=== PATIENT | female | born 1935 | race Caucasian/White ===

== ENCOUNTER 2016-12-27 20:15 | Inpatient (IN) | payer OTHER ==
[~2016-12-27] VITALS: Ht 149.9 cm; Wt 68.6 kg
--- NOTE | 2016-12-27 20:42 | EMERGENCY ROOM VISIT NOTE ---
History Report prepared by Katherine: Rupert Lopez Under the Supervision of: Dr. Zain Archibald M.D. First contact with patient: 20:23 Chief Complaint: CARDIAC ASSESSMENT Stated Complaint: AFIB / [facility] Nursing Triage Summary: pt to the ED via EMS from [facility] after a routine check there by staff when they noticed the pulse ox was 140. pt has a hx of afib and thyroid problems (see orange sheet) EMs arrived and HR was 140's-160's, pt was given 20mg cardizem by EMS and pt HR is in the 90's pt has no complaints of pain or SOB currently, she stated that this morning she "couldn't get her breath real good" History of Present Illness The patient is an 81 year old white female with a past medical history of dementia, hypothyroid, hyperlipidemia, cardiomyopathy, and atrial fibrillation who presents to the ED for a cardiac assessment. This HPI is limited secondary to the patient's dementia. Positive constipation. Negative chest pain, shortness of breath, and cough. The patient was sent here from [facility] after a routine check up by staff. They noticed that her pulse was 140. She was given 20 mg of Cardizem per EMS and her rate decreased to 90s. Source of History: patient, retirement notes, EMS History Limited By: dementia Onset: recently Position: other (heart) Symptom Intensity: Rate 140's Quality: other ([place]) Timing: other (Improving) Associated Symptoms: No cough, No chest pain, No SOB Note: Patient says she is constipated. Review of Systems Limited secondary to the patient's dementia. Past Medical & Surgical Medical Problems: (1) Afib (2) Cardiomyopathy (3) Dementia (4) Hyperlipidemia (5) Hypothyroid Family History Omitted secondary to the patient's age. Social History Smoking Status: Never Smoker Smokeless Tobacco Use: No Alcohol Use: none Drug Use: none Housing Status: retirement Current/Historical Medications Scheduled Aspirin (Aspirin Ec), 81 MG PO QAM Digoxin (Digoxin), 1 TAB PO TW Levothyroxine Sodium (Synthroid), 1.5 TAB PO DAILY Metoprolol Tartrate (Lopressor) (Lopressor), 25 MG PO BID Pantoprazole (Protonix), 40 MG PO DAILY Polyethylene Glycol 3350 (Bulk (Polyethylene Glycol 3350), 17 GM PO DAILY Pravastatin (Pravachol ), 20 MG PO HS Raloxifene Hcl (Evista), 60 MG PO QAM Scheduled PRN Acetaminophen Tab (Tylenol), 650 MG PO Q4 PRN for Pain Docusate Sodium (Docusate Sodium), 1 CAP PO DAILY PRN for Constipation Senna (Senokot), 2 TAB PO DAILY PRN for Constipation Allergies Coded Allergies: No Known Allergies (Unverified , 12/27/16) Physical Exam Vital Signs Date Time Temp Pulse Resp B/P (MAP) Pulse Ox O2 Delivery O2 Flow Rate FiO2 12/27/16 22:39 98 32 126/94 95 Room Air 12/27/16 21:31 90 20 122/89 94 Room Air 12/27/16 21:06 93 22 153/85 96 Nasal Cannula 1.0 12/27/16 20:30 94 12/27/16 20:27 94 Nasal Cannula 2.0 12/27/16 20:21 36.4 90 26 125/68 91 Room Air Physical Exam GENERAL: Awake, alert, well-appearing, NAD, nasal cannula in place. HENT: Normocephalic, atraumatic. EYES: Normal conjunctiva. Sclera non-icteric. NECK: Supple. No nuchal rigidity. FROM. RESPIRATORY: Bibasilar crackles CARDIAC: RRR, no MRG ABDOMEN: Soft, NTND, BS+ MSK: No chest wall TTP, 2+ LE edema NEURO: GCS 15, CN 2-12 intact, moves all 4s on command SKIN: No rash or jaundice noted. Medical Decision & Procedures ER Provider Diagnostic Interpretation: Radiology results as stated below per my review and radiologist interpretation: SINGLE VIEW CHEST CLINICAL HISTORY: Atrial fibrillation. FINDINGS: An AP, portable, upright chest radiograph is obtained. No prior studies are available for comparison at the time of dictation. The examination is degraded by portable technique and patient rotation. The heart is enlarged and there is atherosclerotic calcification of the thoracic aorta. The pulmonary vasculature is noncongested. There are small layering pleural effusions with bibasilar consolidation. No pneumothorax is seen. The skeletal structures are osteopenic. The bony thorax is grossly intact. IMPRESSION: 1. Cardiomegaly without clear radiographic evidence of congestive failure. 2. There are layering pleural effusions with bibasilar consolidation. This likely represents atelectasis. Clinical correlation will be required. Electronically signed by: Shar Eduardo M.D. 12/27/2016 9:20 PM Dictated Date/Time: 12/27/2016 9:18 PM Laboratory Results 12/27/16 20:10 Red Blood Count 4.16, Mean Corpuscular Volume 91.3, Mean Corpuscular Hemoglobin 31.5, Mean Corpuscular Hemoglobin Concent 34.5, Mean Platelet Volume 11.5, Neutrophils (%) (Auto) 69.9, Lymphocytes (%) (Auto) 19.2, Monocytes (%) (Auto) 9.2, Eosinophils (%) (Auto) 1.1, Basophils (%) (Auto) 0.3, Neutrophils # (Auto) 6.62, Lymphocytes # (Auto) 1.82, Monocytes # (Auto) 0.87, Eosinophils # (Auto) 0.10, Basophils # (Auto) 0.03 12/27/16 20:10 Test 12/27/16 20:10 12/27/16 21:16 12/27/16 21:21 White Blood Count 9.47 K/uL (4.8-10.8) Red Blood Count 4.16 M/uL (4.2-5.4) Hemoglobin 13.1 g/dL (12.0-16.0) Hematocrit 38.0 % (37-47) Mean Corpuscular Volume 91.3 fL (80-100) Mean Corpuscular Hemoglobin 31.5 pg (25-34) Mean Corpuscular Hemoglobin Concent 34.5 g/dl (32-36) Platelet Count 262 K/uL (130-400) Mean Platelet Volume 11.5 fL (7.4-10.4) Neutrophils (%) (Auto) 69.9 % Lymphocytes (%) (Auto) 19.2 % Monocytes (%) (Auto) 9.2 % Eosinophils (%) (Auto) 1.1 % Basophils (%) (Auto) 0.3 % Neutrophils # (Auto) 6.62 K/uL (1.4-6.5) Lymphocytes # (Auto) 1.82 K/uL (1.2-3.4) Monocytes # (Auto) 0.87 K/uL (0.11-0.59) Eosinophils # (Auto) 0.10 K/uL (0-0.5) Basophils # (Auto) 0.03 K/uL (0-0.2) RDW Standard Deviation 51.5 fL (36.4-46.3) RDW Coefficient of Variation 15.4 % (11.5-14.5) Immature Granulocyte % (Auto) 0.3 % Immature Granulocyte # (Auto) 0.03 K/uL (0.00-0.02) Prothrombin Time 11.0 SECONDS (9.0-12.0) Prothromb Time International Ratio 1.0 (0.9-1.1) Activated Partial Thromboplast Time 25.7 SECONDS (21.0-31.0) Partial Thromboplastin Ratio 1.0 Anion Gap 9.0 mmol/L (3-11) Est Creatinine Clear Calc Drug Dose 32.6 ml/min Estimated GFR () 61.5 Estimated GFR (Non- 53.1 BUN/Creatinine Ratio 28.1 (10-20) Calcium Level 8.6 mg/dl (8.5-10.1) Phosphorus Level 2.5 mg/dl (2.5-4.9) Magnesium Level 2.0 mg/dl (1.8-2.4) Troponin I 0.044 ng/ml (0-0.045) Pro-B-Type Natriuretic Peptide 5493 pg/ml (0-1800) Chemistry Specimen Hemolysis Venous Blood pH 7.42 (7.36-7.41) Venous Blood Partial Pressure CO2 32 mmHg (38.0-50.0) Venous Blood Partial Pressure O2 43 mmHg Venous Blood HCO3 21 mmol/L Venous Blood Oxygen Saturation 76.4 % Venous Blood Base Excess -2.9 mEq/L Bedside Troponin I 0.030 ng/ml (0-0.045) Laboratory results reviewed by me Medications Administered Medications (Trade) Dose Ordered Sig/Camelia Route Start Time Stop Time Status Last Admin Dose Admin Diltiazem HCl (Cardizem Tab) 30 mg NOW ONCE PO 12/27/16 21:00 12/27/16 21:01 DC 12/27/16 21:16 30 MG Diltiazem HCl (Cardizem Inj) 15 mg NOW STAT IV 12/27/16 22:43 12/27/16 22:45 DC 12/27/16 22:57 15 MG ECG Indication: other (A fib) Rate (beats per minute): 90 Rhythm: atrial fibrillation Findings: Q waves (Anterior), T-wave inversion (V5, V6, 1, aVL), other (Normal QRS, normal QTC) ED Course 2022: The patient was evaluated in room C7. A complete history and physical exam was performed. 2209: I spoke with Dr. Remi [facility], at this time. We discussed the patient's case. He will be evaluating the patient for further management and care. Medical Decision The patient is an 81 year old white female with a past medical history of dementia, hypothyroid, hyperlipidemia, cardiomyopathy, and atrial fibrillation who presents to the ED for a cardiac assessment. This HPI is limited secondary to the patient's dementia. Positive constipation. Negative chest pain, shortness of breath, and cough. Triage Nursing notes reviewed. The patient's presentation and history were concerning for electrolyte abnormality, medical noncompliance, dehydration, and arrhythmia. I spoke with medical command on the phone and given the patient's good blood pressure but tachycardia of 140-160 Cardizem 20 mg was ordered. Patient presented to the ER and rate was well controlled but still in atrial fibrillation. Patient was evaluated with blood work. Patient had a negative troponin. Upon initial eval patient had no medications listed. Patient was given by mouth diltiazem. Patient denied any chest pain or shortness of breath. Patient's chest x-ray did not have severe volume overload. Patient did have some LE swelling. Medication reconciliation and lists medications show that she was on Lopressor in addition to digoxin. Patient was already admitted and given the fact that patient would not respond quickly to a dig loading dose was not given at this time. Hospitalist evaluated the patient at which point the patient was having intermittent bouts of A. fib with RVR. Patient was given a second push dose of diltiazem which resulted in improvement rate control. Patient's EKG did show that she had some lateral and high lateral T-wave inversions and anterior Q waves. No prior EKG to compare. Patient was admitted for rate control and monitoring as well as serial EKGs and troponins. Medication Reconcilliation Current Medication List: was personally reviewed by vt Blood Pressure Screening Patient's blood pressure: Normal blood pressure Blood pressure disposition: Did not require urgent referral Consults Time Called: 2204 Consulting Physician: Dr. Remi Bacon Returned Call: 2209 Discussed the patient's case. The patient will be evaluated for further treatment and disposition. Impression Primary Impression: Atrial fibrillation with RVR Critical Care I have personally spent greater than 47 minutes of critical care time in the direct management of this patient. This includes bedside care, interpretation of diagnostic studies, and testing, discussion with consultants, patient, and family members, and other required patient management activities. This 47 minutes is in excess of all separately billable procedures. Scribe Attestation The scribe's documentation has been prepared under my direction and personally reviewed by me in its entirety. I confirm that the note above accurately reflects all work, treatment, procedures, and medical decision making performed by me. Departure Information Dispostion Being Evaluated By Hospitalist Cat Oleary, C.R.N.P. (PCP) Patient Instructions My [facility]
[2016-12-27] MEDS ORDERED: DILTIAZEM HCL 30 MG TAB PO ONE (21:00)
[2016-12-27 21:09] LABS: BASO % 0.3 %; BASO ABS # 0.03 K/uL (0-0.2); COMPLETE YES; EOS % 1.1 %; IG% 0.3 %; LYMPH % 19.2 %; LYMPH ABS # 1.82 K/uL (1.2-3.4); MEAN CELL VOLUME 91.3 fL (80-100); MEAN CORPUSCULAR HEMOGLOBIN 31.5 pg (25-34); MEAN CORPUSCULAR HGB CONC 34.5 g/dl (32-36); MEAN PLATELET VOLUME 11.5 fL (7.4-10.4); MONO % 9.2 %; NEUT % 69.9 %; PLATELET COUNT 262 K/uL (130-400); RED BLOOD COUNT 4.16 M/uL (4.2-5.4); WHITE BLOOD COUNT 9.47 K/uL (4.8-10.8)
--- NOTE | 2016-12-27 21:21 | DIAGNOSTIC IMAGING REPORT ---
SINGLE VIEW CHEST CLINICAL HISTORY: Atrial fibrillation. FINDINGS: An AP, portable, upright chest radiograph is obtained. No prior studies are available for comparison at the time of dictation. The examination is degraded by portable technique and patient rotation. The heart is enlarged and there is atherosclerotic calcification of the thoracic aorta. The pulmonary vasculature is noncongested. There are small layering pleural effusions with bibasilar consolidation. No pneumothorax is seen. The skeletal structures are osteopenic. The bony thorax is grossly intact. IMPRESSION: 1. Cardiomegaly without clear radiographic evidence of congestive failure. 2. There are layering pleural effusions with bibasilar consolidation. This likely represents atelectasis. Clinical correlation will be required. Electronically signed by: Shar Eduardo M.D. 12/27/2016 9:20 PM Dictated Date/Time: 12/27/2016 9:18 PM
[2016-12-27 21:32] LABS: VEN BLD GAS O2 SATURATION 76.4 %; VEN BLOOD GAS BASE EXCESS -2.9 mEq/L
[2016-12-27 21:33] LABS: BUN/CREATININE RATIO 28.1 (10-20); CALCIUM 8.6 mg/dl (8.5-10.1); CREATININE 0.99 mg/dl (0.60-1.20); PHOSPHORUS 2.5 mg/dl (2.5-4.9); POTASSIUM 4.3 mmol/L (3.5-5.1)
[2016-12-27] MEDS ORDERED: POLY1POW2 PO (21:33)
[2016-12-27] MEDS ORDERED: LEVO50TA PO (21:33)
[2016-12-27] MEDS ORDERED: SENN-61 PO (21:33)
[2016-12-27] MEDS ORDERED: LNX125 PO (21:33)
[2016-12-27] MEDS ORDERED: ACET325T96 PO (21:33)
[2016-12-27] MEDS ORDERED: METO25TA56 PO (21:33)
[2016-12-27] MEDS ORDERED: RALO60TA12 PO (21:33)
[2016-12-27] MEDS ORDERED: PANT40TA PO (21:33)
[2016-12-27] MEDS ORDERED: DOCU100C31 PO (21:33)
[2016-12-27] MEDS ORDERED: ASPI81TA28 PO (21:33)
[2016-12-27] MEDS ORDERED: PRAV20TA PO (21:33)
[2016-12-27] MEDS ORDERED: DILTIAZEM HCL 5 MG/ML 5 ML VIAL IV STA (22:43)
--- NOTE | 2016-12-27 23:02 | History and Physical ---
History & Physical Date & Time of Service: Dec 27, 2016 at 22:58 Chief Complaint: Afib / [facility] Primary Care Physician: Cat Guidry, KarolNJorge APJorge A History of Present Illness Source: patient This is a 81 year Female from [facility] with history of dementia, hypothyroidism, atrial fibrillation (possible new onset), cardiomyopathy, dyslipidemia who was found to have tachycardia of 140 in the [facility] facility. Review of documents submitted to [facility] that patient received 20 mg cardiazem IV before arriving to the hospital. Patient subsequently evaluated in the ED with initial heart rate in the 90s and initial EKG shows atrial fibrillation. When assessed by hospitalist medicine physician, patient's heart rate was between 100s to 120s. ED physician ordered diltiazem 15 mg IV x 1. While patient was evaluated with tachycardia she denied symptoms of chest pain or shortness of breath. She exhibits evidence of memory impairment and not oriented to time or place and is expresses confusion of seeing unfamiliar people in the hospital Review of prior records showed that patient had elevated TSH 22.5 and low free T4 in 0.593 on 11/09/2016. The documents submitted from [facility] shows that levothyroxine was increased from 25 mcg to 75 mcg daily. However outpatient documents show low TSH 0.5 and euthyroid level of T4 1.47 on 12/18/16. Patient also had history of digoxin use with subtherapeutic level less than 0.003 on . [facility] documentation shows that synthroid was held on 12/27/16 on day of hospital presentation. Past Medical/Surgical History Medical Problems: (1) Cardiomyopathy Status: Chronic (2) Dementia Status: Chronic (3) Hyperlipidemia Status: Chronic (4) Hypothyroid Status: Chronic Social History Smoking Status: Unknown if Ever Smoked Smokeless Tobacco Use: Unknown Drug Use: none Allergies Coded Allergies: No Known Allergies (Unverified , 12/27/16) Home Medications Scheduled Aspirin (Aspirin Ec), 81 MG PO QAM Digoxin (Digoxin), 1 TAB PO TW Levothyroxine Sodium (Synthroid), 1.5 TAB PO DAILY Metoprolol Tartrate (Lopressor) (Lopressor), 25 MG PO BID Pantoprazole (Protonix), 40 MG PO DAILY Polyethylene Glycol 3350 (Bulk (Polyethylene Glycol 3350), 17 GM PO DAILY Pravastatin (Pravachol ), 20 MG PO HS Raloxifene Hcl (Evista), 60 MG PO QAM Scheduled PRN Acetaminophen Tab (Tylenol), 650 MG PO Q4 PRN for Pain Docusate Sodium (Docusate Sodium), 1 CAP PO DAILY PRN for Constipation Senna (Senokot), 2 TAB PO DAILY PRN for Constipation Review of Systems Constitutional: No fever Respiratory: No shortness of breath Cardiovascular: No chest pain Abdomen: No pain Musculoskeletal: + swelling (bilateral lower extremities) Physical Exam Vital Signs Date Time Temp Pulse Resp B/P (MAP) Pulse Ox O2 Delivery O2 Flow Rate FiO2 12/27/16 21:31 90 20 122/89 94 Room Air 12/27/16 21:06 93 22 153/85 96 Nasal Cannula 1.0 12/27/16 20:30 94 12/27/16 20:27 94 Nasal Cannula 2.0 12/27/16 20:21 36.4 90 26 125/68 91 Room Air General Appearance: no apparent distress Head: normocephalic, atraumatic Eyes: normal inspection, EOMI ENT: TMs normal Neck: no adenopathy, trachea midline Respiratory/Chest: chest non-tender, lungs clear, normal breath sounds, no respiratory distress, no accessory muscle use Cardiovascular: + tachycardia, + irregularly irregular Abdomen/GI: normal bowel sounds, non tender, soft Back: no muscle spasm Extremities/Musculoskelatal: normal inspection, normal range of motion Neurologic/Psych: + pertinent finding (alert to self) Skin: warm/dry Diagnostics Laboratory Results Results Past 24 Hours Test 12/27/16 20:10 12/27/16 21:16 12/27/16 21:21 Range/Units White Blood Count 9.47 4.8-10.8 K/uL Red Blood Count 4.16 4.2-5.4 M/uL Hemoglobin 13.1 12.0-16.0 g/dL Hematocrit 38.0 37-47 % Mean Corpuscular Volume 91.3 80-100 fL Mean Corpuscular Hemoglobin 31.5 25-34 pg Mean Corpuscular Hemoglobin Concent 34.5 32-36 g/dl Platelet Count 262 130-400 K/uL Mean Platelet Volume 11.5 7.4-10.4 fL Neutrophils (%) (Auto) 69.9 % Lymphocytes (%) (Auto) 19.2 % Monocytes (%) (Auto) 9.2 % Eosinophils (%) (Auto) 1.1 % Basophils (%) (Auto) 0.3 % Neutrophils # (Auto) 6.62 1.4-6.5 K/uL Lymphocytes # (Auto) 1.82 1.2-3.4 K/uL Monocytes # (Auto) 0.87 0.11-0.59 K/uL Eosinophils # (Auto) 0.10 0-0.5 K/uL Basophils # (Auto) 0.03 0-0.2 K/uL RDW Standard Deviation 51.5 36.4-46.3 fL RDW Coefficient of Variation 15.4 11.5-14.5 % Immature Granulocyte % (Auto) 0.3 % Immature Granulocyte # (Auto) 0.03 0.00-0.02 K/uL Prothrombin Time 11.0 9.0-12.0 SECONDS Prothromb Time International Ratio 1.0 0.9-1.1 Activated Partial Thromboplast Time 25.7 21.0-31.0 SECONDS Partial Thromboplastin Ratio 1.0 Sodium Level 138 136-145 mmol/L Potassium Level 4.3 3.5-5.1 mmol/L Chloride Level 108 98-107 mmol/L Carbon Dioxide Level 21 21-32 mmol/L Anion Gap 9.0 3-11 mmol/L Blood Urea Nitrogen 28 7-18 mg/dl Creatinine 0.99 0.60-1.20 mg/dl Est Creatinine Clear Calc Drug Dose 32.6 ml/min Estimated GFR () 61.5 Estimated GFR (Non- 53.1 BUN/Creatinine Ratio 28.1 10-20 Random Glucose 129 70-99 mg/dl Calcium Level 8.6 8.5-10.1 mg/dl Phosphorus Level 2.5 2.5-4.9 mg/dl Magnesium Level 2.0 1.8-2.4 mg/dl Troponin I 0.044 0-0.045 ng/ml Pro-B-Type Natriuretic Peptide 5493 0-1800 pg/ml Chemistry Specimen Hemolysis Venous Blood pH 7.42 7.36-7.41 Venous Blood Partial Pressure CO2 32 38.0-50.0 mmHg Venous Blood Partial Pressure O2 43 mmHg Venous Blood HCO3 21 mmol/L Venous Blood Oxygen Saturation 76.4 % Venous Blood Base Excess -2.9 mEq/L Bedside Troponin I 0.030 0-0.045 ng/ml Diagnostic Radiology 1. Cardiomegaly without clear radiographic evidence of congestive failure. 2. There are layering pleural effusions with bibasilar consolidation. This likely represents atelectasis. EKG initial EKG reviewed to be atrial fibrillation with heart rate in the 90s Impression Assessment and Plan This is a 81 year Female from [facility] with history of dementia, hypothyroidism, atrial fibrillation (possible new onset), cardiomyopathy, dyslipidemia who was found to have tachycardia of 140 in the [facility] facility. At this time it is unclear whether the atrial fibrillation with RVR is new onset as medical records incomplete and no documentation found on anticoagulation. Atrial fibrillation with RVR, cardiomyopathy history -s/p 20 mg cardiazem IV before arriving to the hospital. Patient subsequently evaluated in the ED with initial heart rate in the 90s and initial EKG shows atrial fibrillation. When assessed by hospitalist medicine physician, patient's heart rate was between 100s to 120s. ED physician ordered diltiazem 15 mg IV x 1. -cardiac telemetry, monitor blood pressure for hypotension while receiving rate control medications -additional IV pushes of rate control medications as needed -ordered 50 mg of metoprolol BID for long acting rate control -heparin drip for anticoagulation, trend coags -trend troponins -TTE for structural heart disease -digoxin -cardiology consult Thyroid disorder -has had significant changes of TSH and T4 levels over recent 1 months duration -because of afib RVR, hold levothyroxine for now, trend TFTs Dementia -redirect patient to bed, reorient patient to surroundings as needed -hold memantine or donepezil for now -PT/OT Contact information listed PA from [facility] contact information [phone] Daughter and power of assistant city attorney Margie Manzo [phone] Daughter and power of assistant city attorney Christine Bernabe [phone] Level of Care Telemetry VTE Prophylaxis VTE Risk Assessment Done? Y/N: Yes Risk Level: High
[2016-12-27] MEDS ORDERED: POLYETHYLENE (MIRALAX) 17 GM PACK PO PRN (23:15)
[2016-12-27] MEDS ORDERED: NITROGLYCERIN 0.4 MG SL PER TAB CHARGE SL PRN (23:15)
[2016-12-27] MEDS ORDERED: ACETAMINOPHEN 325 MG TAB PO PRN (23:15)
[2016-12-27] MEDS ORDERED: SENNA 8.6 MG TAB PO PRN (23:15)
[2016-12-27] MEDS ORDERED: ONDANSETRON INJ 2 MG/ML 2 ML VIAL IV PRN (23:15)
[2016-12-27] MEDS ORDERED: DOCUSATE SODIUM 100 MG CAP PO PRN (23:15)
[2016-12-27] MEDS ORDERED: ALUMINUM/MAGNESIUM/SIMETH (MAALOX MAX) 30 ML UDC PO PRN (23:15)
[2016-12-27] MEDS ORDERED: MAGNESIUM HYDROXIDE SUSP 30 ML UDC PO PRN (23:15)
[2016-12-27] MEDS ORDERED: HEPARIN IV LOW DOSE NO BOLUS SCH (23:36)
[2016-12-27 23:53] VITALS: BP 127/87; PULSE 77; TEMP 36.3; O2SAT 93
[2016-12-28] VITALS (9 sets, daily range): BP systolic 111–128; BP diastolic 70–92; PULSE 77–139; TEMP 36.1–37; O2SAT 92–97; Ht 149.9 cm; Wt 68.6 kg
[2016-12-28] MEDS ORDERED: HEPARIN 25,000 UNIT/500ML D5W 500 ML IV PRN (00:15)
[2016-12-28] MEDS ORDERED: NURSING VERBAL MED ORDER ONE ×2 (02:00→08:45)
[2016-12-28] MEDS: METOPROLOL TARTRATE 1 MG/ML VIAL IV PRN ×2 (03:48→17:10)
--- NOTE | 2016-12-28 05:20 | Progress Note ---
Progress Note Date of Service Dec 28, 2016. Progress Note [employer]ST[employer] HELPER ATTENDING NOTE : pt admitted to floor with Afib rvr became very combative /confused , hitting , punching nursing , trying to climb out of bed ripped off her IV site pt evaluated at bedside was more pleasant and co operative , does not recall of her behavior earlier ordered to D/c IV heparin -very poor candidate for anticoagulation ordered for low bed /fall precaution 1: 1 observation for patient safety
[2016-12-28 05:45] LABS: HEMATOCRIT 37.2 % (37-47); MEAN CELL VOLUME 91.6 fL (80-100); MEAN CORPUSCULAR HEMOGLOBIN 30.3 pg (25-34); MEAN CORPUSCULAR HGB CONC 33.1 g/dl (32-36); MEAN PLATELET VOLUME 11.3 fL (7.4-10.4); PLATELET COUNT 214 K/uL (130-400); RED BLOOD COUNT 4.06 M/uL (4.2-5.4); WHITE BLOOD COUNT 8.84 K/uL (4.8-10.8)
[2016-12-28 06:22] LABS: CKMB/CK RATIO 5.5 (0-3.0)
[2016-12-28] MEDS: PANTOprazole SOD 40 MG TAB PO SCH (08:03)
[2016-12-28] MEDS: RALOXIFENE 60 MG TAB PO SCH (08:03)
[2016-12-28] MEDS: ASPIRIN 81 MG ECTAB PO SCH (08:03)
[2016-12-28] MEDS ORDERED: METOPROLOL TARTRATE 25 MG TAB PO SCH (09:00)
[2016-12-28] MEDS ORDERED: LEVOTHYROXINE 50 MCG TAB PO SCH (09:00)
--- NOTE | 2016-12-28 09:06 | ECHOCARDIOGRAM REPORT ---
*NOTICE TO RECEIVING REPUBLICAN AGENCY This information is strictly Confidential and protected under [place] law. [place] law prohibits you from making any further disclosure of this information unless further disclosure is expressly permitted by the written consent of the person to whom it pertains or is authorized by law. A general authorization for the release of medical or other information is not sufficient for this purpose. Hospital accepts no responsibility if the information is made available to any other person, INCLUDING THE PATIENT. Interpretation Summary * Name: KEYLA BANGURA Study Date: 12/28/2016 07:24 AM BP: 111/72 mmHg * Patient Location: C.2T\S\E220\S\1 HR: 113 * : 1935 (M/d/yyyy) Gender: Female Height: 59 in * Age: 81 yrs Ethnicity: CA Weight: 116 lb * Ordering Physician: Becca Chvaez * Referring Physician: Self, Referred * Performed By: Angel Valentin RCS * * Reason For Study: A-FIB * BSA: 1.5 m2 * The study was technically adequate. * There is no comparison study available. * -- Conclusions -- * The rhythm is atrial fibrillation with rapid ventricular response. * Left ventricular systolic function is severely reduced. * Ejection Fraction = 20-25%. * The septum is akinetic. * The apical segements are akinetic. * The mid anterior, lateral, posterior, and inferior segements are hypokinetic. * The left atrium is moderately dilated. * There is moderate mitral regurgitation. * Small loculated posterior pericardial effusion. Procedure Details * A complete two-dimensional transthoracic echocardiogram was performed (2D, M-mode, Doppler and color flow Doppler). Left Ventricle * The left ventricle is normal in size. * The rhythm is atrial fibrillation with rapid ventricular response. * There is normal left ventricular wall thickness. * Ejection Fraction = 20-25%. * Left ventricular systolic function is severely reduced. * The septum is akinetic. The apical segements are akinetic. The mid anterior, lateral, posterior, and inferior segements are hypokinetic. Right Ventricle * The right ventricle is normal size. * The right ventricular systolic function is normal as assessed by tricuspid annular plane systolic excursion (TAPSE) (normal >1.5 cm). Atria * The left atrium is moderately dilated. * The right atrium is mildly dilated. * There is no evidence of atrial septal defect, but resolution does not allow assessment for a patent foramen ovale. Mitral Valve * The mitral valve is normal. * There is no mitral valve stenosis. * There is moderate mitral regurgitation. Tricuspid Valve * The tricuspid valve is normal. * There is no tricuspid stenosis. * There is trace tricuspid regurgitation. * Doppler findings do not suggest pulmonary hypertension. Aortic Valve * The aortic valve is trileaflet. * Aortic stenosis is absent. * Mild aortic regurgitation. Pulmonic Valve * The pulmonary valve is not well seen, but the Doppler examination is normal without significant regurgitation or stenosis. Great Vessels * The aortic root is normal size. Pericardium/Pleural * Small loculated posterior pericardial effusion. Great Vessels * IVC not well visualized. Left Ventricular Diastolic Function * Pulse wave TDI of the anterior and posterior mitral annulas demonstrates abnormal LV relaxation MMode 2D Measurements and Calculations IVSd 0.63 cm LVIDd 5.4 cm LVIDs 4.3 cm LVPWd 0.75 cm IVS/LVPW 0.84 FS 20.1 % EDV(Teich) 140.5 ml ESV(Teich) 83.3 ml EF(Teich) 40.7 % EDV(cubed) 156.3 ml ESV(cubed) 79.8 ml EF(cubed) 48.9 % LV mass(C)d 128.6 grams LV mass(C)dI 87.9 grams/m\S\2 SV(Teich) 57.2 ml SI(Teich) 39.1 ml/m\S\2 SV(cubed) 76.5 ml SI(cubed) 52.3 ml/m\S\2 Ao root diam 2.8 cm Ao root area 5.9 cm\S\2 LVOT diam 2.0 cm LVOT area 3.0 cm\S\2 EDV(MOD-sp4) 54.5 ml ESV(MOD-sp4) 35.6 ml EF(MOD-sp4) 34.7 % EDV(MOD-sp2) 29.8 ml ESV(MOD-sp2) 15.0 ml EF(MOD-sp2) 49.8 % SV(MOD-sp4) 18.9 ml SI(MOD-sp4) 12.9 ml/m\S\2 SV(MOD-sp2) 14.8 ml SI(MOD-sp2) 10.1 ml/m\S\2 Doppler Measurements and Calculations Ao V2 max 100.9 cm/sec Ao max PG 4.1 mmHg Ao max PG (full) 2.0 mmHg GUIDO(V,A) 2.1 cm\S\2 GUIDO(V,D) 2.1 cm\S\2 LV V1 max PG 2.1 mmHg LV V1 max 71.4 cm/sec TR max margaret 247.0 cm/sec
[2016-12-28] MEDS ORDERED: METOPROLOL TARTRATE 25 MG TAB PO ONE (09:30)
--- NOTE | 2016-12-28 09:49 | Progress Note ---
Subjective Date of Service: Dec 28, 2016. Subjective Pt evaluation today including: conversation w/ patient, conversation w/ family (daughter, Margie), physical exam, lab review, review of studies, review of inpatient medication list Saw/examined the patient in room 220 she is pleasantly demented Denies any symptoms Ate most of her breakfast Problem List Medical Problems: (1) Atrial fibrillation with RVR Status: Acute Medications Current Inpatient Medications Medications (Trade) Dose Ordered Sig/Camelia Route Start Time Stop Time Status Last Admin Dose Admin Metoprolol Tartrate (Lopressor Iv) 5 mg Q6 PRN IV 12/27/16 23:00 01/26/17 22:59 12/28/16 03:48 5 MG Acetaminophen (Tylenol Tab) 650 mg Q4 PRN PO 12/27/16 23:15 01/26/17 23:14 Aspirin (Ecotrin Tab) 81 mg QAM PO 12/28/16 09:00 01/27/17 08:59 12/28/16 08:03 81 MG Digoxin (Lanoxin Tab) 0.125 mg DAILY@1600 PO 12/28/16 16:00 01/27/17 15:59 Docusate Sodium (coLACE CAP) 100 mg DAILY PRN PO 12/27/16 23:15 01/26/17 23:14 Metoprolol Tartrate (Lopressor Tab) 25 mg BID PO 12/28/16 09:00 01/27/17 08:59 12/28/16 08:03 25 MG Pantoprazole Sodium (Protonix Tab) 40 mg DAILY PO 12/28/16 09:00 01/27/17 08:59 12/28/16 08:03 40 MG Pravastatin Sodium (Pravachol Tab) 20 mg HS PO 12/28/16 21:00 01/27/17 20:59 Raloxifene HCl (Evista Tab) 60 mg QAM PO 12/28/16 09:00 01/27/17 08:59 12/28/16 08:03 60 MG Senna (Senokot Tab) 17.2 mg DAILY PRN PO 12/27/16 23:15 01/26/17 23:14 Al Hydrox/Mg Hydrox/Simethicone (Maalox Max Susp) 15 ml Q4H PRN PO 12/27/16 23:15 01/26/17 23:14 Magnesium Hydroxide (Milk Of Magnesia Susp) 30 ml Q12H PRN PO 12/27/16 23:15 01/26/17 23:14 Ondansetron HCl (Zofran Inj) 4 mg Q6H PRN IV 12/27/16 23:15 01/26/17 23:14 Nitroglycerin (Nitrostat Tab) 0.4 mg UD PRN SL 12/27/16 23:15 01/26/17 23:14 Polyethylene (Miralax Powder Packet) 17 gm DAILY PRN PO 12/27/16 23:15 01/26/17 23:14 Objective Vital Signs Date Time Temp Pulse Resp B/P (MAP) Pulse Ox O2 Delivery O2 Flow Rate FiO2 12/28/16 07:15 36.6 128 18 128/92 (104) 94 Room Air 12/28/16 04:06 93 Room Air 12/28/16 03:48 123 18 111/72 (85) 92 Room Air 12/28/16 03:48 128 111/74 12/28/16 01:00 36.3 77 18 127/87 96 Room Air 12/27/16 23:53 36.3 77 18 127/87 (100) 93 Room Air 12/27/16 23:26 101 104/88 12/27/16 23:25 141 34 96 12/27/16 23:21 120/70 12/27/16 23:20 91 23 96 12/27/16 23:16 117/73 12/27/16 23:15 71 27 93 12/27/16 23:10 111 22 90 12/27/16 23:07 101/82 12/27/16 23:05 98 28 92 12/27/16 23:03 99 26 114/76 93 Room Air 12/27/16 23:00 117 28 104/71 95 Room Air 12/27/16 22:39 98 32 126/94 95 Room Air 12/27/16 21:31 90 20 122/89 94 Room Air 12/27/16 21:06 93 22 153/85 96 Nasal Cannula 1.0 12/27/16 20:30 94 12/27/16 20:27 94 Nasal Cannula 2.0 12/27/16 20:21 36.4 90 26 125/68 91 Room Air Physical Exam General Appearance: no apparent distress Respiratory/Chest: lungs clear, normal breath sounds, no respiratory distress, no accessory muscle use Cardiovascular: + tachycardia, + irregularly irregular Extremities: + pertinent finding (+1 pitting edema b/l LE) Laboratory Results Last 24 Hours Test 12/27/16 20:10 12/27/16 21:16 12/27/16 21:21 12/27/16 23:09 White Blood Count 9.47 K/uL Red Blood Count 4.16 M/uL Hemoglobin 13.1 g/dL Hematocrit 38.0 % Mean Corpuscular Volume 91.3 fL Mean Corpuscular Hemoglobin 31.5 pg Mean Corpuscular Hemoglobin Concent 34.5 g/dl Platelet Count 262 K/uL Mean Platelet Volume 11.5 fL Neutrophils (%) (Auto) 69.9 % Lymphocytes (%) (Auto) 19.2 % Monocytes (%) (Auto) 9.2 % Eosinophils (%) (Auto) 1.1 % Basophils (%) (Auto) 0.3 % Neutrophils # (Auto) 6.62 K/uL Lymphocytes # (Auto) 1.82 K/uL Monocytes # (Auto) 0.87 K/uL Eosinophils # (Auto) 0.10 K/uL Basophils # (Auto) 0.03 K/uL RDW Standard Deviation 51.5 fL RDW Coefficient of Variation 15.4 % Immature Granulocyte % (Auto) 0.3 % Immature Granulocyte # (Auto) 0.03 K/uL Prothrombin Time 11.0 SECONDS Prothromb Time International Ratio 1.0 Activated Partial Thromboplast Time 25.7 SECONDS Partial Thromboplastin Ratio 1.0 Sodium Level 138 mmol/L Potassium Level 4.3 mmol/L Chloride Level 108 mmol/L Carbon Dioxide Level 21 mmol/L Anion Gap 9.0 mmol/L Blood Urea Nitrogen 28 mg/dl Creatinine 0.99 mg/dl Est Creatinine Clear Calc Drug Dose 32.6 ml/min Estimated GFR () 61.5 Estimated GFR (Non- 53.1 BUN/Creatinine Ratio 28.1 Random Glucose 129 mg/dl Calcium Level 8.6 mg/dl Phosphorus Level 2.5 mg/dl Magnesium Level 2.0 mg/dl Troponin I 0.044 ng/ml Pro-B-Type Natriuretic Peptide 5493 pg/ml Chemistry Specimen Hemolysis Venous Blood pH 7.42 Venous Blood Partial Pressure CO2 32 mmHg Venous Blood Partial Pressure O2 43 mmHg Venous Blood HCO3 21 mmol/L Venous Blood Oxygen Saturation 76.4 % Venous Blood Base Excess -2.9 mEq/L Bedside Troponin I 0.030 ng/ml Digoxin Level 0.2 ng/ml Test 12/28/16 05:24 White Blood Count 8.84 K/uL Red Blood Count 4.06 M/uL Hemoglobin 12.3 g/dL Hematocrit 37.2 % Mean Corpuscular Volume 91.6 fL Mean Corpuscular Hemoglobin 30.3 pg Mean Corpuscular Hemoglobin Concent 33.1 g/dl RDW Standard Deviation 50.9 fL RDW Coefficient of Variation 15.3 % Platelet Count 214 K/uL Mean Platelet Volume 11.3 fL Total Creatine Kinase 40 U/L Creatine Kinase MB 2.2 ng/ml Creatine Kinase MB Ratio 5.5 Troponin I 0.053 ng/ml Free Thyroxine 1.26 ng/dl Assessment and Plan This is an 81 year old female from [facility] with PMH of dementia, urinary incontinence, HTN, HLD, hypothyroidism presents with A. fib with RVR I called and spoke with Margie, patient's daughter, who tells me that the patient had A. Fib in early October and was admitted at [facility] - at that time, they changed her Coreg to Lopressor and stopped her Lisinopril. She was also sent home on a low dose digoxin. They briefly discussed cardioversion, but family did not want this to be done and do not want heroic measures. Patient does have a living will and she is currently a DNR status. As per daughter, they were aware of her heart being in bad condition; including mitral regurgitation and significantly reduced LVEF. They would like only medical therapies that will bring down the heart. Margie also mentions that patient has had Haldol before and did not do well with it in the past. She also does not do well with Ativan or other anti-anxiety/agitation medications and requests that we avoid if it is possible. Margie will not be available to speak for the next few days; requested we contact patient's other daughter if we need to Contact Information: Bernabe Cerda - A. Fib with RVR increased metoprolol AM dose to 50mg on monitor, patient is still in the 120s-130s digoxin changed from only M and Th dosing to daily dosing PRN IV Lopressor is ordered echo noted: severely reduced LVEF to 20-25%; moderate mitral regurgitation attempted IV heparin, though patient became agitated; no anticoagulation due to patient's mental status/dementia cardiology consultation for further input Thyroid Disorder her TSH has been labile; last one was low, suggesting hyperthyroidism; Free T4 is normal hold Synthroid due to A. Fib with RVR; may be beneficial to stop this completely , recheck TSH in ~ 4-6 weeks Dementia patient is prone to sundowning as per daughter, Haldol had an opposite effect on her, making her more agitated will try to avoid Haldol or Benzos if possible 1 to 1 observation for now Urinary Incontinence continue current medications HTN blood pressure is stable, tolerating increased doses of b-jayda DVT ppx patient is not tolerating heparin/Lovenox injections do not want to place SCDs due to dementia contraindicated DNR - as per discussion with Margie, patient's daughter -
--- NOTE | 2016-12-28 10:24 | CARDIOLOGY CONSULTATION ---
DATE OF CONSULTATION: 12/28/2016 DATE OF CONSULTATION: 12/28/2016 REFERRING PHYSICIAN: Dr. Elgin Khalil. REASON FOR CONSULTATION: Atrial fibrillation. CHIEF COMPLAINT ON ADMISSION: Agitation. HISTORY OF PRESENT ILLNESS: Ms. Gr is an 81-year-old female who resides at [facility] with a history of dementia, cardiomyopathy, hypothyroidism, coronary disease and dyslipidemia. The patient was noted to be agitated. Her vital signs at [facility] demonstrated tachycardia. She was brought to the Emergency Department and noted to be in atrial fibrillation with rapid ventricular response. She was treated with 20 mg of intravenous Cardizem prior to arriving in the hospital. She received an additional 15 mg IV by the ER physician. No additional medications have been given. She was admitted to the progressive care unit. Currently, atrial fibrillation with rapid ventricular response. Average ventricular rate of approximately 120 beats per minute. Nursing reports confusion and combativeness overnight. Her intravenous heparin was discontinued. She received 25 mg of metoprolol this morning. She is scheduled to receive 125 mcg of digoxin this afternoon. Her digoxin level 0.2 on admission. The patient complaining of need to urinate. Bladder scan was performed at the bedside demonstrating 340 mL of urinary retention. The patient currently resting comfortably. She is no longer combative. She did not receive any sedation. She is an extremely poor historian due to underlying dementia. She is oriented to person only. Per review of records from [facility], it appears she was followed by a glazier helper in [place], however, I do not have further details or records to review at this time. REVIEW OF SYSTEMS: Unable to be obtained from the patient due to her significant dementia. Ten system was reviewed via chart, otherwise unremarkable at this time. The pertinent positives are noted above. PAST MEDICAL HISTORY: 1. Cardiomyopathy, unknown severity. 2. Coronary disease with history of coronary stenting x4. 3. Mesenteric stenting. 4. Dementia. 5. Dyslipidemia. 6. Hypothyroidism - Synthroid recently reduced. PAST SURGICAL HISTORY: Not documented. SOCIAL HISTORY: Unknown if patient was ever a smoker. She currently resides at [facility]. ALLERGIES: No known drug allergies. OUTPATIENT MEDICATIONS: 1. Aspirin 81 mg daily. 2. Digoxin Mondays and . 3. Synthroid, unknown dose. 4. Metoprolol tartrate 25 mg twice daily. 5. Protonix 40 mg daily. 6. Pravastatin 20 mg daily. 7. Evista 60 mg daily. 8. Tylenol as needed. 9. Colace as needed. 10. Senna as needed. ECG on admission demonstrates atrial fibrillation with ventricular rate of [address]-T wave change in V5 and V6, consider ischemia, poor R-wave progression, could not exclude age indeterminate anterior septal infarct. LABORATORY DATA: Initial troponin 0.044, repeat troponin at 0524 a.m. is 0.053. Her CK-MB is 2.2. Sodium 138, potassium 4.3, chloride 108, CO2 21, BUN is 28, creatinine is 0.99. INR is 1.0. White blood cell count 8.84, hemoglobin is 12.3, platelet count is 214. Chest x-ray on admission demonstrates cardiomegaly without clear congestive heart failure, layering effusions with bibasilar consolidation. Findings represent atelectasis versus infiltrate. PHYSICAL EXAMINATION: VITAL SIGNS: Temperature is 36.6 degrees Celsius, pulse is 120 beats per minute and irregular, respiratory rate is 18 breaths per minute. SAO2 is 94% on room air. GENERAL: NAD, patient is awake, alert, however oriented to person only. She is no longer agitated. HEAD, EYES, EARS, NOSE, AND THROAT: Her mucous membranes are moist. No scleral icterus. Conjunctivae pink. NECK: Supple. No JVD. No HJR. No carotid bruit. HEART: Irregular and tachycardic with a normal S1 and S2. No murmur, rub or gallop appreciated. LUNGS: Demonstrate diminished breath sounds at the bases bilaterally. No rhonchi or wheeze. No crackles appreciated. ABDOMEN: Soft. There is mild distention in her suprapubic region and tenderness as well. Normal bowel sounds. No rebound or guarding. EXTREMITIES: Warm and dry without clubbing, cyanosis, or edema. NEUROLOGIC EXAMINATION: The patient moves all extremities. She does not follow commands appropriately. Cranial nerves are grossly intact. FINAL IMPRESSION: 1. Atrial fibrillation of unknown duration with rapid ventricular response. The patient's heart rate remains elevated. She has received 2 doses of intravenous diltiazem overnight. Appears be asymptomatic and unaware of her heart rate at this time without chest discomfort. 2. Severe ischemic cardiomyopathy with history of coronary stenting x4. The patient appears compensated. 3. Pleural effusions on chest x-ray without evidence of pulmonary edema. 4. Hypothyroidism -- patient Synthroid recently reduced, possible precipitating her atrial fibrillation, however duration of arrhythmias is unknown. 5. Significant underlying dementia. The patient is oriented to person only. PLAN AND RECOMMENDATIONS: Increase metoprolol to 50 mg twice daily. She will receive an additional 25 mg x1 now. Continue to monitor telemetry closely. Titrate digoxin to 125 mcg daily. Also, consider adding an additional 250 mg dose of digoxin today pending heart rate response to titration of metoprolol. Would recommend gentle titration as the patient appears to be asymptomatic at her current heart rate. Her echocardiogram demonstrates significant ischemic cardiomyopathy, however, she appears compensated without dyspnea, orthopnea, edema, or pulmonary edema on x-ray. We will attempt to obtain records from her glazier helper in [place] regarding further details of her cardiovascular conditions and history. Will continue to follow closely during hospitalization. Thank you for allowing me to take part in the care of your patient. QAMAR
[2016-12-28 13:41] LABS: CKMB/CK RATIO 4.5 (0-3.0)
[2016-12-28] MEDS ORDERED: DIGOXIN 0.25 MG TAB PO ONE (14:30)
[2016-12-28] MEDS ORDERED: DIGOXIN 0.125 MG TAB PO SCH (16:00)
[2016-12-28] MEDS: PRAVASTATIN SOD 20 MG TAB PO SCH (19:40)
[2016-12-28] MEDS ORDERED: DOXAZosin TAB 1 MG TAB PO SCH (21:00)
[2016-12-28] MEDS ORDERED: METOPROLOL TARTRATE 50 MG TAB PO SCH (21:00)
[2016-12-29] VITALS (15 sets, daily range): BP systolic 108–135; BP diastolic 64–83; PULSE 42–150; TEMP 36.4–37.1; O2SAT 89–97
[2016-12-29] MEDS: METOPROLOL TARTRATE 1 MG/ML VIAL IV PRN ×2 (01:24→10:23)
[2016-12-29 05:50] LABS: CALCIUM 8.4 mg/dl (8.5-10.1); CREATININE 0.89 mg/dl (0.60-1.20); MAGNESIUM 2.1 mg/dl (1.8-2.4); POTASSIUM 4.9 mmol/L (3.5-5.1)
--- NOTE | 2016-12-29 06:55 | DIAGNOSTIC IMAGING REPORT ---
CHEST ONE VIEW PORTABLE CLINICAL HISTORY: Shortness of breath. Evaluate for aspiration. COMPARISON STUDY: Chest radiograph December 27, 2016. FINDINGS: There is no pneumothorax. Small bilateral pleural effusions, left larger than right, are unchanged. Mild pulmonary edema has developed. Bibasilar opacities are present. Moderate cardiomegaly is noted. IMPRESSION: 1. Interval development of mild pulmonary edema. 2. Small bilateral pleural effusions with associated bibasilar opacities. These opacities statistically reflect atelectasis although consolidation could appear similar. Electronically signed by: Jhoan Nesbitt M.D. 12/29/2016 6:54 AM Dictated Date/Time: 12/29/2016 6:53 AM
[2016-12-29] MEDS: ASPIRIN 81 MG ECTAB PO SCH ×2 (09:00→10:13)
[2016-12-29] MEDS: METOPROLOL TARTRATE 50 MG TAB PO SCH ×4 (09:00→20:32)
[2016-12-29] MEDS: PANTOprazole SOD 40 MG TAB PO SCH ×2 (09:00→10:13)
[2016-12-29] MEDS: RALOXIFENE 60 MG TAB PO SCH ×2 (09:00→10:13)
--- NOTE | 2016-12-29 10:38 | Cardiology Follow-Up ---
Subjective General Date of Service: Dec 29, 2016. Pt evaluation today including: conversation w/ patient, physical exam, chart review, lab review, review of studies, conversation w/ budget consultant, review of inpatient medication list History of Present Illness The patient is a 81 year old female seen in follow-up. Patient is resting comfortably. Heart rates remain elevated averaging 130 bpm. Patient experience a choking episode overnight with associated bradycardia and 4 second pause. She is unable to offer meaningful history due to underlying dementia. Allergies Coded Allergies: No Known Allergies (Unverified , 12/27/16) Social History Smoking Status: Unknown if Ever Smoked Hx Tobacco Use In Past Year?: No Hx Alcohol Use - Type And Amou: No Problem List Medical Problems: (1) Atrial fibrillation with RVR Status: Acute Review of Systems Respiratory: No sputum, No dyspnea at rest Cardiac: No chest pain, No orthopnea, No edema Physical Exam Vital Signs Last Vital Signs Documentation Date Time Temp Pulse Resp B/P (MAP) Pulse Ox O2 Delivery O2 Flow Rate FiO2 12/29/16 10:23 140 113/81 12/29/16 08:00 Room Air 12/29/16 04:56 92 12/29/16 04:06 36.5 16 12/27/16 21:06 1.0 Physical Exam Constitutional: Level of Distress: NAD Head: atraumatic Lungs: Auscultation: no wheezing, no rales/crackles, no rhonchi Cardiovascular: Heart Auscultation: no murmurs, tachycardia, irregular rate rhythm Peripheral Pulses: Bruits: none appreciated Abdomen: Inspection & Palpation: soft, non-distended, no tenderness, guarding & rebound Extremities: no cyanosis, no edema, no clubbing, no ulcers Neurologic: Cranial Nerves: grossly intact Assessment and Plan Assessment and Plan FINAL IMPRESSION: 1. Atrial fibrillation with rapid ventricular response and transient bradycardia with 4 second pause recorded overnight in the setting of choking. 2. Severe ischemic cardiomyopathy with history of coronary stenting x4.\ - compensated. 3. Pleural effusions on chest x-ray without evidence of pulmonary edema. 4. Hypothyroidism -- patient Synthroid recently reduced, possible precipitating her atrial fibrillation, however duration of arrhythmias is unknown. 5. Significant underlying dementia - oriented to person only. PLAN AND RECOMMENDATIONS: Patient heart rate remains elevated this morning. Her transient bradycardia last night was associated with a choking episode as per discussion with nursing. I suspect vagally mediated. We will give an additional 250 g of digoxin this morning. She will have metoprolol titrated to 50 mg 3 times daily as well. Would like to avoid intravenous AV criselda blocking agents given episode of transient bradycardia. Plan of care discussed with hospitalist. Will continue to follow during hospitalization. Laboratory Results Last 24 Hours Test 12/28/16 12:57 12/29/16 05:05 Total Creatine Kinase 44 U/L Creatine Kinase MB 2.0 ng/ml Creatine Kinase MB Ratio 4.5 Troponin I 0.043 ng/ml Sodium Level 140 mmol/L Potassium Level 4.9 mmol/L Chloride Level 110 mmol/L Carbon Dioxide Level 26 mmol/L Anion Gap 4.0 mmol/L Blood Urea Nitrogen 31 mg/dl Creatinine 0.89 mg/dl Est Creatinine Clear Calc Drug Dose 36.2 ml/min Estimated GFR () 70.0 Estimated GFR (Non- 60.4 BUN/Creatinine Ratio 35.0 Random Glucose 99 mg/dl Calcium Level 8.4 mg/dl Magnesium Level 2.1 mg/dl
[2016-12-29] MEDS ORDERED: NURSING VERBAL MED ORDER ONE (11:00)
--- NOTE | 2016-12-29 11:06 | Progress Note ---
Subjective Date of Service: Dec 29, 2016. Subjective Pt evaluation today including: conversation w/ patient, physical exam, lab review, review of studies, review of inpatient medication list Saw/examined the patient in room 220 she is lethargic/weak/tired today Had agitation over night, had to have mitts put on her, but did well afterwards Now on a 1-to-1 observation HRs are still in the 130s-140s Had an episode of 4 second pause last evening, possibly after aspirating on some food Problem List Medical Problems: (1) Atrial fibrillation with RVR Status: Acute Medications Current Inpatient Medications Medications (Trade) Dose Ordered Sig/Camelia Route Start Time Stop Time Status Last Admin Dose Admin Metoprolol Tartrate (Lopressor Iv) 5 mg Q6 PRN IV 12/27/16 23:00 01/26/17 22:59 12/29/16 10:23 5 MG Acetaminophen (Tylenol Tab) 650 mg Q4 PRN PO 12/27/16 23:15 01/26/17 23:14 Aspirin (Ecotrin Tab) 81 mg QAM PO 12/28/16 09:00 01/27/17 08:59 12/28/16 08:03 81 MG Docusate Sodium (coLACE CAP) 100 mg DAILY PRN PO 12/27/16 23:15 01/26/17 23:14 Pantoprazole Sodium (Protonix Tab) 40 mg DAILY PO 12/28/16 09:00 01/27/17 08:59 12/28/16 08:03 40 MG Pravastatin Sodium (Pravachol Tab) 20 mg HS PO 12/28/16 21:00 01/27/17 20:59 12/28/16 19:40 20 MG Raloxifene HCl (Evista Tab) 60 mg QAM PO 12/28/16 09:00 01/27/17 08:59 12/28/16 08:03 60 MG Senna (Senokot Tab) 17.2 mg DAILY PRN PO 12/27/16 23:15 01/26/17 23:14 Al Hydrox/Mg Hydrox/Simethicone (Maalox Max Susp) 15 ml Q4H PRN PO 12/27/16 23:15 01/26/17 23:14 Magnesium Hydroxide (Milk Of Magnesia Susp) 30 ml Q12H PRN PO 12/27/16 23:15 01/26/17 23:14 Ondansetron HCl (Zofran Inj) 4 mg Q6H PRN IV 12/27/16 23:15 01/26/17 23:14 12/29/16 01:43 4 MG Nitroglycerin (Nitrostat Tab) 0.4 mg UD PRN SL 12/27/16 23:15 01/26/17 23:14 Polyethylene (Miralax Powder Packet) 17 gm DAILY PRN PO 12/27/16 23:15 01/26/17 23:14 Doxazosin Mesylate (Cardura Tab) 1 mg HS PO 12/28/16 21:00 01/27/17 20:59 12/28/16 19:40 1 MG Metoprolol Tartrate (Lopressor Tab) 50 mg TID PO 12/29/16 09:00 01/27/17 08:59 Digoxin (Lanoxin Tab) 0.25 mg DAILY@1600 PO 12/29/16 16:00 01/27/17 15:59 UNV Miscellaneous Information (Nursing Verbal Med Order) 1 ea ONE ONCE N/A 12/29/16 11:00 12/29/16 11:01 UNV Objective Vital Signs Date Time Temp Pulse Resp B/P (MAP) Pulse Ox O2 Delivery O2 Flow Rate FiO2 12/29/16 10:59 93 Nasal Cannula 2.0 12/29/16 10:50 89 Room Air 12/29/16 10:23 140 113/81 12/29/16 08:00 Room Air 12/29/16 04:56 92 Room Air 12/29/16 04:06 36.5 76 16 122/79 (93) 12/29/16 04:00 Room Air 12/29/16 03:15 108 12/29/16 02:05 119 12/29/16 01:44 150 135/78 (97) 12/29/16 01:40 42 12/29/16 01:24 130 12/29/16 00:00 Room Air 12/28/16 23:12 36.4 117 18 120/73 (89) 93 Room Air 12/28/16 20:00 Room Air 12/28/16 19:44 36.6 139 18 113/75 (88) 92 Room Air 12/28/16 17:10 142 115/82 12/28/16 16:00 Room Air 12/28/16 15:35 131 12/28/16 15:33 132 12/28/16 14:51 36.1 131 18 111/70 (84) 97 Room Air 12/28/16 12:00 Room Air Physical Exam General Appearance: no apparent distress, + pertinent finding (demented, currently lethargic) Respiratory/Chest: + decreased breath sounds Cardiovascular: + tachycardia, + irregularly irregular Laboratory Results Last 24 Hours Test 12/28/16 12:57 12/29/16 05:05 Total Creatine Kinase 44 U/L Creatine Kinase MB 2.0 ng/ml Creatine Kinase MB Ratio 4.5 Troponin I 0.043 ng/ml Sodium Level 140 mmol/L Potassium Level 4.9 mmol/L Chloride Level 110 mmol/L Carbon Dioxide Level 26 mmol/L Anion Gap 4.0 mmol/L Blood Urea Nitrogen 31 mg/dl Creatinine 0.89 mg/dl Est Creatinine Clear Calc Drug Dose 36.2 ml/min Estimated GFR () 70.0 Estimated GFR (Non- 60.4 BUN/Creatinine Ratio 35.0 Random Glucose 99 mg/dl Calcium Level 8.4 mg/dl Magnesium Level 2.1 mg/dl Assessment and Plan This is an 81 year old female from [facility] with PMH of dementia, urinary incontinence, HTN, HLD, hypothyroidism presents with A. fib with RVR I called and spoke with Margie, patient's daughter, who tells me that the patient had A. Fib in early October and was admitted at [facility] - at that time, they changed her Coreg to Lopressor and stopped her Lisinopril. She was also sent home on a low dose digoxin. They briefly discussed cardioversion, but family did not want this to be done and do not want heroic measures. Patient does have a living will and she is currently a DNR status. As per daughter, they were aware of her heart being in bad condition; including mitral regurgitation and significantly reduced LVEF. They would like only medical therapies that will bring down the heart. Margie also mentions that patient has had Haldol before and did not do well with it in the past. She also does not do well with Ativan or other anti-anxiety/agitation medications and requests that we avoid if it is possible. Margie will not be available to speak for the next few days; requested we contact patient's other daughter if we need to Contact Information: Bernabe Cerda - A. Fib with RVR 12/29 dose of metoprolol increased to 50mg TID dose of dig increased to 0.250mg daily monitor, may need IV Lopressor or IV Cardizem if HRs are still elevated 12/28 increased metoprolol AM dose to 50mg on monitor, patient is still in the 120s-130s digoxin changed from only M and Th dosing to daily dosing PRN IV Lopressor is ordered echo noted: severely reduced LVEF to 20-25%; moderate mitral regurgitation attempted IV heparin, though patient became agitated; no anticoagulation due to patient's mental status/dementia cardiology consultation for further input Thyroid Disorder her TSH has been labile; last one was low, suggesting hyperthyroidism; Free T4 is normal hold Synthroid due to A. Fib with RVR; may be beneficial to stop this completely , recheck TSH in ~ 4-6 weeks Dementia patient is prone to sundowning as per daughter, Haldol had an opposite effect on her, making her more agitated will try to avoid Haldol or Benzos if possible 1 to 1 observation for now Urinary Incontinence continue current medications HTN blood pressure is stable, tolerating increased doses of b-jayda DVT ppx patient is not tolerating heparin/Lovenox injections do not want to place SCDs due to dementia contraindicated DNR - as per discussion with Margei, patient's daughter -
[2016-12-29] MEDS ORDERED: DIGOXIN IV 250 MCG in SYRINGE 9 ML IV ONE (11:30)
--- NOTE | 2016-12-29 13:22 | Clinical Documentation Query ---
CLINICAL DOCUMENTATION QUERY Dr. PRECIADO, In your clinical opinion is this patient being managed for: ( X ) dementia with combativeness ( ) Not Agree ( ) Other explanation of clinical findings (Please Explain) ( ) Unable to determine (Please Define) ( ) Need to Discuss The medical record reflects the following clinical findings, treatment, and risk factors. Clinical Indicators: 81 yo female presenting with A fib. Has known dementia and is only oriented to person at baseline. Nursing documentation and physician progress note indicates pt became combative, hitting staff, removing IV site. Treatment:1:1 observation, restrain mitts, avoid haldol and benzo due to paradoxical response Risk Factors: dementia, change in environment, A fib with RVR Please clarify and document your clinical opinion in the progress notes and discharge summary. Terms such as "probable", "suspected", "likely", "questionable", "possible", or "still to be ruled out" are acceptable. IF IN AGREEMENT, YOU MUST DOCUMENT ABOVE DIAGNOSTIC STATEMENT IN DAILY PROGRESS NOTES AND DISCHARGE SUMMARY. This document is not part of the patient's record. Thank You, Zoe Bradley RN [phone]
[2016-12-29] MEDS: PRAVASTATIN SOD 20 MG TAB PO SCH (20:32)
[2016-12-30] VITALS (8 sets, daily range): BP systolic 107–125; BP diastolic 58–83; PULSE 72–108; TEMP 36.4–36.8; O2SAT 92–97
[2016-12-30 06:29] LABS: HEMATOCRIT 35.8 % (37-47); MEAN CELL VOLUME 92.7 fL (80-100); MEAN CORPUSCULAR HEMOGLOBIN 30.1 pg (25-34); MEAN CORPUSCULAR HGB CONC 32.4 g/dl (32-36); MEAN PLATELET VOLUME 10.5 fL (7.4-10.4); PLATELET COUNT 216 K/uL (130-400); RED BLOOD COUNT 3.86 M/uL (4.2-5.4)
[2016-12-30 07:35] LABS: CALCIUM 8.3 mg/dl (8.5-10.1); CREATININE 0.82 mg/dl (0.60-1.20); POTASSIUM 3.9 mmol/L (3.5-5.1)
[2016-12-30] MEDS: ASPIRIN 81 MG ECTAB PO SCH (07:54)
[2016-12-30] MEDS: RALOXIFENE 60 MG TAB PO SCH (07:55)
[2016-12-30] MEDS: PANTOprazole SOD 40 MG TAB PO SCH (07:55)
[2016-12-30] MEDS: METOPROLOL TARTRATE 50 MG TAB PO SCH (07:56)
[2016-12-30] MEDS: METOPROLOL TARTRATE 1 MG/ML VIAL IV PRN ×2 (08:25→18:40)
--- NOTE | 2016-12-30 10:13 | Progress Note ---
Medicine Progress Note Date & Time of Visit: Dec 30, 2016 at 09:47. Subjective oriented to person only today feels well-denies pain, chest pain, SOB, home oxygen use, fevers, chills, palpitations or other issues at this time ate her breakfast without issue this morning doesn't remember why she is here continues to refer to the sitter at bedside by the wrong name and speak as though it is another time in her life. appears calm and not disoriented. Cannot remember her family member's name or where she lives. Objective Last 8 Hrs Date Time Temp Pulse Resp B/P (MAP) Pulse Ox O2 Delivery O2 Flow Rate FiO2 12/30/16 08:25 140 107/70 12/30/16 08:00 Nasal Cannula 1.0 12/30/16 07:07 36.5 93 20 107/70 (82) 96 Nasal Cannula 2.0 12/30/16 04:00 Nasal Cannula 1.0 12/30/16 02:29 36.6 74 19 115/62 (79) 97 Nasal Cannula 1.0 Physical Exam: GEN: WNWD, in no acute distress, alert and oriented to person, no delirium. Appears calm. HEENT: NC/AT, pupils round and equal bilaterally, normal sclerae, MMM CARDIO: reg rate, S1/2 heard without m/g/r LUNGS: CTA bilaterally, no crackles, rales or wheezes, good diaphragmatic excursion ABD: soft, non-tender, non-distended, no rebound or guarding, +BS EXTREMITY: RP and DP palpable 2+ bilat, no LE swelling or edema, extremities are warm and well-perfused NEURO: CN 2-12 grossly intact, no gross focal deficits. Mental status as noted above. MUSC: moves all extremities equally. Can sit up on her own in bed. SKIN: warm and dry Laboratory Results: 12/30/16 06:15 12/30/16 06:15 Test 12/27/16 20:10 12/27/16 21:16 12/27/16 21:21 12/27/16 23:09 Immature Granulocyte % (Auto) 0.3 % White Blood Count 9.47 K/uL (4.8-10.8) Red Blood Count 4.16 M/uL (4.2-5.4) Hemoglobin 13.1 g/dL (12.0-16.0) Hematocrit 38.0 % (37-47) Mean Corpuscular Volume 91.3 fL (80-100) Mean Corpuscular Hemoglobin 31.5 pg (25-34) Mean Corpuscular Hemoglobin Concent 34.5 g/dl (32-36) Platelet Count 262 K/uL (130-400) Mean Platelet Volume 11.5 fL (7.4-10.4) Neutrophils (%) (Auto) 69.9 % Lymphocytes (%) (Auto) 19.2 % Monocytes (%) (Auto) 9.2 % Eosinophils (%) (Auto) 1.1 % Basophils (%) (Auto) 0.3 % Neutrophils # (Auto) 6.62 K/uL (1.4-6.5) Lymphocytes # (Auto) 1.82 K/uL (1.2-3.4) Monocytes # (Auto) 0.87 K/uL (0.11-0.59) Eosinophils # (Auto) 0.10 K/uL (0-0.5) Basophils # (Auto) 0.03 K/uL (0-0.2) Immature Granulocyte # (Auto) 0.03 K/uL (0.00-0.02) Prothrombin Time 11.0 SECONDS (9.0-12.0) Prothromb Time International Ratio 1.0 (0.9-1.1) Activated Partial Thromboplast Time 25.7 SECONDS (21.0-31.0) Partial Thromboplastin Ratio 1.0 Phosphorus Level 2.5 mg/dl (2.5-4.9) Pro-B-Type Natriuretic Peptide 5493 pg/ml (0-1800) Chemistry Specimen Hemolysis Venous Blood pH 7.42 (7.36-7.41) Venous Blood Partial Pressure CO2 32 mmHg (38.0-50.0) Venous Blood Partial Pressure O2 43 mmHg Venous Blood HCO3 21 mmol/L Venous Blood Oxygen Saturation 76.4 % Venous Blood Base Excess -2.9 mEq/L Bedside Troponin I 0.030 ng/ml (0-0.045) Digoxin Level 0.2 ng/ml (0.8-2.0) Test 12/28/16 05:24 12/28/16 12:57 12/30/16 06:15 Free Thyroxine 1.26 ng/dl (0.80-1.60) Total Creatine Kinase 44 U/L (26-192) Creatine Kinase MB 2.0 ng/ml (0.5-3.6) Creatine Kinase MB Ratio 4.5 (0-3.0) Troponin I 0.043 ng/ml (0-0.045) Red Blood Count 3.86 M/uL (4.2-5.4) Mean Corpuscular Volume 92.7 fL (80-100) Mean Corpuscular Hemoglobin 30.1 pg (25-34) Mean Corpuscular Hemoglobin Concent 32.4 g/dl (32-36) RDW Standard Deviation 52.8 fL (36.4-46.3) RDW Coefficient of Variation 15.4 % (11.5-14.5) Mean Platelet Volume 10.5 fL (7.4-10.4) Anion Gap 6.0 mmol/L (3-11) Est Creatinine Clear Calc Drug Dose 45.4 ml/min Estimated GFR () 77.2 Estimated GFR (Non- 66.6 BUN/Creatinine Ratio 37.0 (10-20) Calcium Level 8.3 mg/dl (8.5-10.1) Magnesium Level 2.0 mg/dl (1.8-2.4) Last 24 Hours Test 12/30/16 06:15 White Blood Count 9.40 K/uL Red Blood Count 3.86 M/uL Hemoglobin 11.6 g/dL Hematocrit 35.8 % Mean Corpuscular Volume 92.7 fL Mean Corpuscular Hemoglobin 30.1 pg Mean Corpuscular Hemoglobin Concent 32.4 g/dl RDW Standard Deviation 52.8 fL RDW Coefficient of Variation 15.4 % Platelet Count 216 K/uL Mean Platelet Volume 10.5 fL Sodium Level 141 mmol/L Potassium Level 3.9 mmol/L Chloride Level 108 mmol/L Carbon Dioxide Level 27 mmol/L Anion Gap 6.0 mmol/L Blood Urea Nitrogen 30 mg/dl Creatinine 0.82 mg/dl Est Creatinine Clear Calc Drug Dose 45.4 ml/min Estimated GFR () 77.2 Estimated GFR (Non- 66.6 BUN/Creatinine Ratio 37.0 Random Glucose 80 mg/dl Calcium Level 8.3 mg/dl Magnesium Level 2.0 mg/dl Assessment & Plan 81 yo F from Dementia unit presented with tachycardia, found to be in afib w RVR. She was rate controlled with Diltiazem on admission. Anticoagulation not recommended 2/2 mental status. Echo reveals EF 20-25% with global HK. Cardiac meds currently being titrated. Of note, Synthroid is currently on hold as this was thought to be contributing to her tachycardia. She had been admitted to [facility] in early October in afib at that time. They changed her Coreg to Lopressor and stopped her lisinopril. She was also started on low dose digoxin. Cardioversion was discussed but was declined by family as they wanted no heroic measures. HALDOL AND ATIVAN NOT TO BE USED PER FAMILY REQUEST. 1. Afib w RVR-metoprolol increased to 50mg PO TID yesterday, spike to 130 overnight but she has also been reportedly restless requiring a sitter overnight per nursing staff. Dig was increased to 0.25mg PO daily. Discussed case with Dr. Sandoval who plans to change her to Toprol XL. Cont to monitor on telemetry now. 2. Ischemic cardiomyopathy-EF 20% with global HK and mod MR. Heparin was attempted this hospitalization but she became agitated so this was stopped. Anticoag not recommended 2/2 severe dementia. 3. Hypothyroidism-TSH labile and Synthroid stopped on admission as thought to be contributing to tachycardia. Repeat TSH in 4-6 weeks. 4. Dementia-prone to ing. Avoid HAldol and Benzos per daughter request. Lives in the Memory Support Unit at . Currently oriented to person only. Appears calm. Sitter in room. Namenda and Donepezil held on admission. 5. Chronic urinary urgency-was seen by Urology as outpatient earlier this year and placed on doxazosin 1mg PO at night. This was held on admission. Will cont to hold and recommend adding back as outpatient so as not to cause any orthostatic hypotension with adjustment in AV criselda blockers. 6. Osteoporosis-on Evista daily DVT ppx patient is not tolerating heparin/Lovenox injections do not want to place SCDs due to dementia contraindicated DNR Dispo-plan to return to Dementia Unit when optimized from a cardiac standpoint. PT still needs to evaluate and weigh in to ensure strong enough to go home. Renee Sullivan DO [facility]ist <Electronically signed by Venita Serrato Consultants: Jaylyn Current Inpatient Medications: Current Inpatient Medications Medications (Trade) Dose Ordered Sig/Camelia Route Start Time Stop Time Status Last Admin Dose Admin Metoprolol Tartrate (Lopressor Iv) 5 mg Q6 PRN IV 12/27/16 23:00 01/26/17 22:59 12/30/16 08:25 5 MG Acetaminophen (Tylenol Tab) 650 mg Q4 PRN PO 12/27/16 23:15 01/26/17 23:14 Aspirin (Ecotrin Tab) 81 mg QAM PO 12/28/16 09:00 01/27/17 08:59 12/30/16 07:54 81 MG Docusate Sodium (coLACE CAP) 100 mg DAILY PRN PO 12/27/16 23:15 01/26/17 23:14 Pantoprazole Sodium (Protonix Tab) 40 mg DAILY PO 12/28/16 09:00 01/27/17 08:59 12/30/16 07:55 40 MG Pravastatin Sodium (Pravachol Tab) 20 mg HS PO 12/28/16 21:00 01/27/17 20:59 12/29/16 20:32 20 MG Raloxifene HCl (Evista Tab) 60 mg QAM PO 12/28/16 09:00 01/27/17 08:59 12/30/16 07:55 60 MG Senna (Senokot Tab) 17.2 mg DAILY PRN PO 12/27/16 23:15 01/26/17 23:14 Al Hydrox/Mg Hydrox/Simethicone (Maalox Max Susp) 15 ml Q4H PRN PO 12/27/16 23:15 01/26/17 23:14 Magnesium Hydroxide (Milk Of Magnesia Susp) 30 ml Q12H PRN PO 12/27/16 23:15 01/26/17 23:14 Ondansetron HCl (Zofran Inj) 4 mg Q6H PRN IV 12/27/16 23:15 01/26/17 23:14 12/29/16 01:43 4 MG Nitroglycerin (Nitrostat Tab) 0.4 mg UD PRN SL 12/27/16 23:15 01/26/17 23:14 Polyethylene (Miralax Powder Packet) 17 gm DAILY PRN PO 12/27/16 23:15 01/26/17 23:14 Metoprolol Tartrate (Lopressor Tab) 50 mg TID PO 12/29/16 09:00 01/27/17 08:59 12/30/16 07:56 50 MG Digoxin (Lanoxin Tab) 0.25 mg DAILY@1600 PO 12/30/16 16:00 01/29/17 15:59
[2016-12-30] MEDS ORDERED: POTASSIUM CHLORIDE 10 MEQ TABCR PO STA (10:46)
[2016-12-30] MEDS ORDERED: FUROSEMIDE 20 MG TAB PO ONE (11:00)
[2016-12-30] MEDS: CHOLECALCIFEROL 1000 INTER.UNIT TAB PO SCH (11:55)
--- NOTE | 2016-12-30 14:19 | CARDIOLOGY PROGRESS NOTE ---
DATE: 12/30/2016 DATE: 12/30/2016 The patient seen and examined. Chart, medications, telemetry reviewed. SUBJECTIVE: The patient is pleasant this morning. Does note some wheezing and cough with inspiration. Notes no chest pain or discomfort. Laboratory studies reviewed. Telemetry reveals intermittent elevated heart rates, no significant bradyarrhythmias. She remains disoriented. Does have chronic dementia history. PHYSICAL EXAMINATION: VITAL SIGNS: Heart rate 92, blood pressure is 125/65. NECK: Thin. There is no jugular venous distention. LUNGS: Reveal scattered wheezes on forced cough. CARDIOVASCULAR EXAMINATION: Irregular, irregular. There is no S3 gallop. ABDOMEN: Soft, nontender. EXTREMITIES: Without cyanosis or clubbing. There is no peripheral edema. IMPRESSION: An 81-year-old female with history as follows: 1. Atrial fibrillation with rapid ventricular response, now coming under better control. The patient poor anticoagulant candidate. PLAN: Continue rate control. We will reduce digoxin to 0.125 mg per day. Change metoprolol to metoprolol succinate 75 mg twice per day. 2. History of diffuse cardiomyopathy with severe left ventricular dysfunction. The patient is somewhat wheezy this morning, possible mild fluid retention versus underlying pulmonary issues. 20 mg of oral metoprolol will be given as well as 20 mg of potassium supplement. We will follow heart rate overnight. Disposition depending on clinical response. MTDD
[2016-12-30] MEDS ORDERED: DIGOXIN 0.125 MG TAB PO SCH ×2 (16:00)
[2016-12-30] MEDS: METOPROLOL SUCC 25MG EXT REL TAB PO SCH (16:44)
[2016-12-30] MEDS: PRAVASTATIN SOD 20 MG TAB PO SCH (21:00)
[2016-12-31 03:13] VITALS: BP 120/74; PULSE 106; TEMP 36.8; O2SAT 93
[2016-12-31 07:54] LABS: BUN/CREATININE RATIO 35.3 (10-20); CALCIUM 8.1 mg/dl (8.5-10.1); CREATININE 0.77 mg/dl (0.60-1.20); MAGNESIUM 2.2 mg/dl (1.8-2.4); POTASSIUM 4.1 mmol/L (3.5-5.1)
[2016-12-31] MEDS: METOPROLOL SUCC 25MG EXT REL TAB PO SCH (08:21)
[2016-12-31] MEDS: CHOLECALCIFEROL 1000 INTER.UNIT TAB PO SCH (08:22)
[2016-12-31] MEDS: ASPIRIN 81 MG ECTAB PO SCH (08:22)
[2016-12-31] MEDS: PANTOprazole SOD 40 MG TAB PO SCH (08:22)
[2016-12-31] MEDS: RALOXIFENE 60 MG TAB PO SCH (08:22)
[2016-12-31 08:43] VITALS: BP 135/72; PULSE 112; TEMP 36.5; O2SAT 91
--- NOTE | 2016-12-31 11:32 | CARDIOLOGY PROGRESS NOTE ---
DATE: 12/31/2016 CARDIOLOGY CONSULTATION FOLLOWUP NOTE The patient was seen and examined. Chart, medications, and telemetry were reviewed. SUBJECTIVE: Heart rates tend to run higher, but no significant bradyarrhythmias overnight. Did receive IV metoprolol yesterday evening for elevated heart rate on monitor. The patient is asymptomatic and is intermittently confused, but responsive. OBJECTIVE: VITAL SIGNS: Heart rate is 110. Blood pressure is 135/72. NECK: Thin. There is no jugular venous distention. LUNGS: Reveal scattered crackles basilar. CARDIOVASCULAR: Irregularly irregular. There is no S3 gallop. ABDOMEN: Soft and nontender. EXTREMITIES: Without cyanosis or clubbing. There is no peripheral edema. IMPRESSION: Atrial fibrillation with elevated ventricular response rate in the setting of patient with ischemic cardiomyopathy. PLAN: Increase Toprol to 100 mg twice per day, discontinue IV metoprolol. We will add furosemide 20 mg 3 days per week. All other medications to be continued as prescribed. The patient's medications now adjusted to appropriate levels. Plan will be to transition back to assisted care facility.
[2016-12-31 11:37] VITALS: BP 121/83; PULSE 82; TEMP 37.4; O2SAT 96
[2016-12-31] MEDS ORDERED: LSX20 PO (15:04)
[2016-12-31] MEDS ORDERED: LNX125 PO (15:04)
[2016-12-31] MEDS ORDERED: POTA10CA28 PO (15:04)
[2016-12-31] MEDS ORDERED: VTMD1000 PO (15:04)
[2016-12-31] MEDS ORDERED: METO1TAB68 PO (15:04)
--- NOTE | 2016-12-31 15:37 | Discharge Instructions ---
Discharge Instructions Date of Service Dec 31, 2016. Admission Reason for Admission: AFIB Discharge Discharge Diagnosis / Problem: afib w RVR Discharge Goals Goal(s): Prevent Disease Progression Activity Recommendations Activity Limitations: per Instructions/Follow-up section . Instructions / Follow-Up Instructions / Follow-Up Please take all medications as instructed. Note several major changes. Prescriptions have been provided at discharge. It is recommended that you are seen by your primary care provider (PCP) within one week of discharge to ensure you are responding well to the new treatments/ adjustments to medications. Your Synthroid was stopped on admission as this was thought to possibly be contributing to your fast heart rate. You will need a repeat check of TSH (non- fasting bloodwork ordered by your PCP) in 6 weeks. It was a pleasure taking care of you! Call if you have any questions or problems. You can reach a [facility] hospitalist on duty at [facility] 24 hours a day by calling [phone]. Take care of yourself. Renee Sullivan, [facility] Current Hospital Diet Patient's current hospital diet: AHA Diet (Heart Healthy) Discharge Diet Recommended Diet: AHA Diet (Heart Healthy) Procedures Procedures Performed: None. Pending Studies Studies pending at discharge: no Medical Emergencies . Who to Call and When: Medical Emergencies: If at any time you feel your situation is an emergency, please call 911 immediately. . Non-Emergent Contact Non-Emergency issues call your: Primary Care Provider . . "Provider Documentation" section prepared by Renee Sullivan. . VTE Core Measure Inpt VTE Proph given/why not?: Contraindicated (pt not tolerating injections/ refused), Refusal of treatmnt by pt
[2016-12-31 15:48] VITALS: BP 121/83; PULSE 82; TEMP 37.4; O2SAT 96
--- NOTE | 2016-12-31 16:02 | Discharge Summary ---
Discharge Summary Date of Service Dec 31, 2016. Discharge Summary Admission Date: Dec 27, 2016 at 22:56 Discharge Date: Dec 31, 2016 Discharge Disposition: Home Principal Diagnosis: Afib w RVR Ischemic Cardiomyopathy dementia Hypothyroidism Chronic urinary urgency Osteoporosis Procedures: TTE: * The rhythm is atrial fibrillation with rapid ventricular response. * Left ventricular systolic function is severely reduced. * Ejection Fraction = 20-25%. * The septum is akinetic. * The apical segements are akinetic. * The mid anterior, lateral, posterior, and inferior segments are hypokinetic. * The left atrium is moderately dilated. * There is moderate mitral regurgitation. * Small loculated posterior pericardial effusion. Vaccinations: None. Consultations: Cardio-Jaime Pending Studies/Follow-Up: see instructions below Medication Reconciliation New Medications: Cholecalciferol (Vitamin D3) 1,000 Inter.unit Tab 2000 INTER.UNIT PO QAM for 30 Days, #30 TAB 3 Refills Digoxin (Digoxin) 0.125 Mg Tab 0.125 MG PO DAILY@1600 for 30 Days, #30 TAB Furosemide (Furosemide) 20 Mg Tab 20 MG PO MWF for 30 Days, #20 TAB Metoprolol Succinate (Toprol Xl) 100 Mg Tab 1 TAB PO BID for 30 Days, #60 TAB 0 Refills Potassium Chloride (Micro-K Ext Rel) 10 Meq Capcr 10 MEQ PO MWF for 30 Days, #20 TAB Take with Lasix (fursosemide) Continued Medications: Acetaminophen Tab (Tylenol) 325 Mg Tab 650 MG PO Q4 PRN for Pain, TAB Aspirin (Aspirin Ec) 81 Mg Tab 81 MG PO QAM Docusate Sodium (Docusate Sodium) 100 Mg Cap 1 CAP PO DAILY PRN for Constipation for 30 Days, #30 CAP Pantoprazole (Protonix) 40 Mg Tab 40 MG PO DAILY, #30 TAB Polyethylene Glycol 3350 (Bulk (Polyethylene Glycol 3350) 1 Pow Pow 17 GM PO DAILY for 30 Days, #527 GM 11 Refills Pravastatin (Pravachol ) 20 Mg Tab 20 MG PO HS, TAB Raloxifene Hcl (Evista) 60 Mg Tab 60 MG PO QAM, TAB Senna (Senokot) 8.6 Mg Tab 2 TAB PO DAILY PRN for Constipation, TAB Discontinued Medications: Digoxin (Digoxin) 0.125 Mg Tab 1 TAB PO TW TAKE ONE TAB ON MONDAYS AND THURSDAYS. Levothyroxine Sodium (Synthroid) 50 Mcg Tab 1.5 TAB PO DAILY for 30 Days, #45 TAB 5 Refills Metoprolol Tartrate (Lopressor) (Lopressor) 25 Mg Tab 25 MG PO BID, TAB Admission Information HPI (per Admitting provider): This is a 81 year Female from [facility] with history of dementia, hypothyroidism, atrial fibrillation (possible new onset), cardiomyopathy, dyslipidemia who was found to have tachycardia of 140 in the [facility] facility. Review of documents submitted to [facility] that patient received 20 mg cardiazem IV before arriving to the hospital. Patient subsequently evaluated in the ED with initial heart rate in the 90s and initial EKG shows atrial fibrillation. When assessed by hospitalist medicine physician, patient's heart rate was between 100s to 120s. ED physician ordered diltiazem 15 mg IV x 1. While patient was evaluated with tachycardia she denied symptoms of chest pain or shortness of breath. She exhibits evidence of memory impairment and not oriented to time or place and is expresses confusion of seeing unfamiliar people in the hospital Review of prior records showed that patient had elevated TSH 22.5 and low free T4 in 0.593 on 11/09/2016. The documents submitted from [facility] shows that levothyroxine was increased from 25 mcg to 75 mcg daily. However outpatient documents show low TSH 0.5 and euthyroid level of T4 1.47 on 12/18/16. Patient also had history of digoxin use with subtherapeutic level less than 0.003 on . [facility] documentation shows that synthroid was held on 12/27/16 on day of hospital presentation. Physical Exam (per Admitting): General Appearance: no apparent distress Head: normocephalic, atraumatic Eyes: normal inspection, EOMI ENT: TMs normal Neck: no adenopathy, trachea midline Respiratory/Chest: chest non-tender, lungs clear, normal breath sounds, no respiratory distress, no accessory muscle use Cardiovascular: + tachycardia, + irregularly irregular Abdomen/GI: normal bowel sounds, non tender, soft Back: no muscle spasm Extremities/Musculoskelatal: normal inspection, normal range of motion Neurologic/Psych: + pertinent finding (alert to self) Skin: warm/dry Hospital Course 81 yo F from Dementia unit presented with tachycardia, found to be in afib w RVR. She was rate controlled with Diltiazem on admission. Anticoagulation not recommended 2/2 mental status. Echo reveals EF 20-25% with global HK. Cardiac meds currently being titrated. Of note, Synthroid is currently on hold as this was thought to be contributing to her tachycardia. She had been [facility] to [facility] early October in afib at that time. They changed her Coreg to Lopressor and stopped her lisinopril. She was also started on low dose digoxin. Cardioversion was discussed but was declined by family as they wanted no heroic measures. HALDOL AND ATIVAN NOT TO BE USED PER FAMILY REQUEST. 1. Afib w RVR-meds adjusted to Toprol XL 100mg BID, Dig 0.125mg daily, and Lasix and potassium was added TIW. 2. Ischemic cardiomyopathy-EF 20% with global HK and mod MR. Heparin was attempted this hospitalization but she became agitated so this was stopped. Anticoag not recommended 2/2 severe dementia. 3. Hypothyroidism-TSH labile and Synthroid stopped on admission as thought to be contributing to tachycardia. Repeat TSH in 4-6 weeks. 4. Dementia-prone to sundowning. Avoid Haldol and Benzos per daughter request. Lives in the [facility] Unit at . Currently oriented to person only. Appears calm. Sitter in room. Namenda and Donepezil stopped prior to admission. 5. Chronic urinary urgency-was seen by Urology as outpatient earlier this year and placed on doxazosin 1mg PO at night. This was held on admission. Will cont to hold and recommend adding back as outpatient so as not to cause any orthostatic hypotension with adjustment in AV criselda blockers. 6. Osteoporosis-on Evista daily. Recommend stopping as soon as able as outpatient. DVT ppx patient is not tolerating heparin/Lovenox injections do not want to place SCDs due to dementia contraindicated DNR On day of discharge she was pleasantly demented with no change in physical exam. She was hemodynamically stable aside from some mild tachycardia which is constant and she was afebrile. She was discharged in stable condition back to the facility. I spoke with her daughter Fadi and explained the plan moving forward. I answered all questions she had and gave instructions for future recommendations. Renee Sullivan DO [facility] Hospitalist <Electronically signed by Venita Serrato Total time spent on discharge = 60 minutes This includes examination of the patient, discharge planning, medication reconciliation, and communication with other providers. Discharge Instructions [facility] [address] [place] [address] Discharge Medical Patient Name: Cindy Gr Unit Number: [id number] Date of : 1935 Patient Status: Admitted Inpatient Attending Doctor: Renee Sullivan DO DI: Medical v4 Discharge Instructions Date of Service Dec 31, 2016. Admission Reason for Admission: AFIB Discharge Discharge Diagnosis / Problem: afib w RVR Discharge Goals Goal(s): Prevent Disease Progression Activity Recommendations Activity Limitations: per Instructions/Follow-up section . Instructions / Follow-Up Instructions / Follow-Up Please take all medications as instructed. Note several major changes. Prescriptions have been provided at discharge. It is recommended that you are seen by your primary care provider (PCP) within one week of discharge to ensure you are responding well to the new treatments/ adjustments to medications. Your Synthroid was stopped on admission as this was thought to possibly be contributing to your fast heart rate. You will need a repeat check of TSH (non- fasting bloodwork ordered by your PCP) in 6 weeks. It was a pleasure taking care of you! Call if you have any questions or problems. You can reach a [facility] hospitalist on duty at [facility] 24 hours a day by calling [phone]. Take care of yourself. Renee Sullivan DO [facility] Hospitalist Current Hospital Diet Patient's current hospital diet: AHA Diet (Heart Healthy) Discharge Diet Recommended Diet: AHA Diet (Heart Healthy) Procedures Procedures Performed: None. Pending Studies Studies pending at discharge: no Medical Emergencies . Who to Call and When: Medical Emergencies: If at any time you feel your situation is an emergency, please call 911 immediately. . Non-Emergent Contact Non-Emergency issues call your: Primary Care Provider . . "Provider Documentation" section prepared by Renee Sullivan. . VTE Core Measure Inpt VTE Proph given/why not?: Contraindicated (pt not tolerating injections/ refused), Refusal of treatmnt by pt
[2016-12-31] MEDS ORDERED: METOPROLOL SUCC 50MG EXT REL TAB PO SCH (17:00)
[2017-01-01] MEDS ORDERED: FUROSEMIDE 20 MG TAB PO SCH (09:00)
[2017-01-01] MEDS ORDERED: POTASSIUM CHLORIDE 10 MEQ TABCR PO SCH (09:00)
== END 2016-12-31 16:04 | DRG 310 ==
LOC: EDBD 20:15 → C.EDC 20:18 → C.2T 22:56 → ENRESERV 23:08 → C.2T 12-30 14:44
PROVIDERS: ADMIT Hospitalist; ATTEND Hospitalist
PROC: B246ZZ4 Ultrasonography of Right and Left Heart, Transesophageal (ICD-10-PCS; principal; 2016-12-28)
DX: I48.91 Unspecified atrial fibrillation (principal); F03.90 Unspecified dementia, unspecified severity, without behavioral disturbance, psychotic disturbance, mood disturbance, and anxiety; E78.5 Hyperlipidemia, unspecified; E03.9 Hypothyroidism, unspecified; I25.5 Ischemic cardiomyopathy; M81.0 Age-related osteoporosis without current pathological fracture; Z79.82 Long term (current) use of aspirin

== ENCOUNTER → 2017-03-26 | Outpatient (CLI) | payer OTHER ==
[~2017-03-26] MED LIST: ACET325T96 PO; ASPI81TA28 PO; DOCU100C31 PO; LNX125 PO; LSX20 PO; METO-479 PO; PANT40TA PO; POLY1POW2 PO; POTA10CA28 PO; PRAV20TA PO; RALO60TA30 PO; SENN-61 PO; VTMD1000 PO
[2017-03-26 14:43] LABS: BASO % 0.4 %; BASO ABS # 0.03 K/uL (0-0.2); COMPLETE YES; EOS % 1.9 %; HEMATOCRIT 39.7 % (37-47); IG% 0.3 %; LYMPH % 19.8 %; LYMPH ABS # 1.46 K/uL (1.2-3.4); MEAN CELL VOLUME 89.6 fL (80-100); MEAN CORPUSCULAR HEMOGLOBIN 29.6 pg (25-34); MEAN PLATELET VOLUME 10.6 fL (7.4-10.4); MONO % 13.1 %; NEUT % 64.5 %; PLATELET COUNT 253 K/uL (130-400); RED BLOOD COUNT 4.43 M/uL (4.2-5.4); WHITE BLOOD COUNT 7.39 K/uL (4.8-10.8)
[2017-03-26 15:16] LABS: ALT/SGPT 22 U/L (12-78); AST/SGOT 16 U/L (15-37); BLOOD UREA NITROGEN 26 mg/dl (7-18); CALCIUM 8.9 mg/dl (8.5-10.1); CARBON DIOXIDE 29 mmol/L (21-32); CHLORIDE 103 mmol/L (98-107); CREATININE 0.88 mg/dl (0.60-1.20); GLUCOSE 86 mg/dl (70-99); MAGNESIUM 2.2 mg/dl (1.8-2.4); POTASSIUM 4.1 mmol/L (3.5-5.1); SODIUM 140 mmol/L (136-145)
[2017-03-26 15:27] LABS: ALKALINE PHOSPHATASE 78 U/L (45-117)
== END | disposition home or self-care (01) ==
LOC: C.LAB1850 13:54
PROVIDERS: ATTEND Internal Medicine Endocrinology, Diabetes & Metabolism
DX: M81.0 Age-related osteoporosis without current pathological fracture (principal); I48.91 Unspecified atrial fibrillation

== ENCOUNTER 2018-10-10 16:17 | Inpatient (IN) ==
--- OUTSIDE RECORDS SUMMARY | 2018-10-10 16:19 | External Medical Summary | Continuity of Care Document ---
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) (I25.10) Atrial fibrillation (427.31) (I48.91) Chronic systolic congestive heart failure (428.22) (I50.22) Dyslipidemia (272.4) (E78.5) Ischemic cardiomyopathy (414.8) (I25.5) HTN (hypertension) (401.9) (I10) Hypothyroidism (244.9) (E03.9) Osteoporosis (733.00) (M81.0) Shortness of breath on exertion (786.05) (R06.02) Esophageal reflux (530.81) (K21.9) Incomplete bladder emptying (788.21) (R33.9) Senile dementia (290.0) (F03.90) Headache (784.0) (R51) Allergies and Adverse Reactions Levaquin TABS (Allergy) levofloxacin (Allergy) Quinolones (Allergy) Medications Lisinopril 10 MG Oral Tablet; TAKE 1/2 TABLET DAILY. Radha Savage 45 Tablet Bottle Quantity: 1 Refills: 3 Furosemide 20 MG Oral Tablet; TAKE 1 TABLET DAILY. Start: 15-Mar-2017 Refills: 0 Klor-Con 10 10 MEQ Oral Tablet Extended Release; TAKE 1 TABL ET DAILY. Start: 15-Mar-2017 Refills: 0 Ipratropium-Albuterol 0.5-2.5 (3) MG/3ML Inhalation Solution; INHALE ONE DOSE {VIAL} VIA NEBULIZER EVERY 4 HOURS NEEDED 30 x 3 ML Plas Cont Refills: 11 MiraLax Oral Packet; MIX 1 PACKET IN 8 OUNCES OF LIQUID AND DRINK ONCE DAILY. Refills: 0 Tylenol 325 MG Oral Tablet; TAKE 1 TO 2 TABLETS EVERY 4 HOUR S NEEDED Refills: 0 Synthroid 50 MCG Oral Tablet; TAKE 1 TAB LET EVERY MORNING ON AN EMPTY STOMACH WITH A FULL GLASS OF WATER WAIT 30 MINUTES TO EAT Radha Villafana Quantity: 90 Refills: 3 Aspirin 81 MG TABS; take 1 tablet by mouth once daily Refills: 0 Digoxin 125 MCG Oral Tablet; TAKE 1 TABL ET BY MOUTH ONCE DAILY. HOLD FOR HEART RATE < 54 BPM Radha Savage Start: 15-Mar-2017 Quantity: 90 Refills: 3 Metoprolol Succinate ER 100 MG Oral Tabl et Extended Release 24 Hour; TAKE 1 TABLET BY MOUTH TWICE DAILY Radha Savage Start: 15-Mar-2017 Quantity: 180 Refills: 3 Pantoprazole Sodium 40 MG Oral Tablet Delayed Release; TAKE 1 TABLET DAILY. Refills: 3 Colace 100 MG Oral Capsule; TAKE 1 CAPSULE Daily Refills: 0 Pravastatin Sodium 20 MG Oral Tablet; TAKE 1 TABLET DAILY. Quantity: 90 Refills: 3 Melatonin 5 MG Oral Tablet; Take 1 tablet daily Refills: 0 Senna-S 8.6-50 MG Oral Tablet; take 2 tablets at bedtime Refills: 0 Procedures History of cataract surgery Status: Comp leted Immunizations Fluzone High-Dose 0.5 ML Intramuscular Suspension Pref illed Syringe On: 26-Mar-2017 13:38 Lot #: [id number], JON[employer] PASTEUR Family History Mother Family history of cardiac disorder (V17.49) (Z82.49) Status: Active Father Family history of cardiac disorder (V17.49) (Z82.49) Status: Active Social History - Smoking Status Never smoker Plan of Treatment Planned Encounters Appointment; Polo Savage M.D. Start: 29-Jan-2019 14:15 R equest Planned Observations Planned Goals not documented Results No Known Results Results not documented Encounters Appointment; Polo Savage M.D. 29-Jul-2018 14:15 Encounter Diagnosis: Problem not documented Appointment; Pita Villafana M.D. 29-Jul-2018 13:30 Encounter Diagnosis: Problem not documented Appointment; Polo Savage M.D. 30-Jan-2018 15:15 Encounter Diagnosis: Problem not documented Appointment; Pita Villafana M.D. 30-Jan-2018 13:30 Encounter Diagnosis: Problem not documented Appointment; Polo Savage M.D. 22-Oct-2017 11:00 Encounter Diagnosis: Problem not documented Appointment; Pita Villafana M.D. 30-Jul-2017 12:50 Encounter Diagnosis: Problem not documented Appointment; Polo Savage M.D. 18-Jul-2017 11:30 Encounter Diagnosis: Problem not documented Appointment; Polo Savage M.D. 03-Apr-2017 11:00 Encounter Diagnosis: Problem not documented Appointment; Pita Villafana M.D. 26-Mar-2017 12:30 Encounter Diagnosis: Problem not documented Appointment; Polo Savage M.D. 29-Jan-2019 14:15 Encounter Diagnosis: Problem not documented
--- NOTE | 2018-10-10 17:07 | CT Scan Report ---
CT head/brain wo con CLINICAL HISTORY: 82 years-old Female presenting with fall. TECHNIQUE: Multidetector CT imaging of the head was performed without the use of intravenous contrast . IV contrast: None. One or more dose lowering techniques were used consistent with the principles of ALARA (as low as reasonably achievable), including automatic exposure control, mA or kV adjustment t o individual patient size, and/or use of iterative reconstruction. COMPARISON: 08/10/2018. CT DOSE (mGy.cm): The estimated cumulative dose is 866.13. 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 Proportional ventricular and sulcal prominence, likely age-related parenchymal volume loss. Incidenta l note made of a cavum septi pellucidi et vergae. No hemorrhage. Periventricular and subcortical whit e matter hypoattenuation, nonspecific but likely indicative of chronic small vessel ischemic change. Hypoattenuation in the paramedian right occipital lobe new from prior. Regional sulcal effacement. No mass effect or midline shift. No extra-axial fluid collection. Paranasal sinuses and mastoid air dirk ls clear. Calvarium intact allowing for significant motion artifact which degrades evaluation of the skull base. IMPRESSION: 1. Findings highly suspicious for acute infarct in the paramedian right occipital lobe. The report will be called/faxed according to standard departmental protocol for a critical finding. Electronically signed by: Leonel Espinal M.D. 10/10/2018 5:06 PM
--- NOTE | 2018-10-10 17:08 | CT Scan Report ---
CT SCAN OF THE CERVICAL SPINE CLINICAL HISTORY: Fall. COMPARISON STUDY: No priors. TECHNIQUE: CT scan of the cervical spine is performed from the skull base to the upper thoracic spine . Images are reviewed in the axial, sagittal, and coronal planes. IV contrast was not administered fo r this examination. A dose lowering technique was utilized adhering to the principles of ALARA. CT DOSE: 866.13 mGy.cm FINDINGS: Skeletal structures: The skeletal structures are osteopenic. There is no evidence of fracture or subl uxation involving the cervical spine. Vertebral body height is maintained. There is minimal anteroli sthesis at C3-C4, C4-C5, and C6-C7. There is straightening of the cervical lordosis. Small anterior o steophytes are seen throughout. The odontoid process and lateral masses are intact. The atlantoaxial articulation is preserved noting mild productive degenerative change. The spinous processes appear in tact. There is mild to moderate multilevel cervical spondylosis. Uncovertebral and facet arthropathy contribute to neural foraminal stenosis at several levels. Intervertebral discs: Moderate disc space narrowing is seen at C5-C6. Only mild disc space narrowing is seen at the remaining cervical levels. Central canal: Grossly patent. Soft tissues: The prevertebral and paraspinous soft tissues are within normal limits. There is athero sclerotic calcification of the carotid bulbs. The thyroid gland is atrophic. Calvarium: The visualized calvarium at the skull base appears intact. Brain parenchyma: Partially visualized brain parenchyma the skull base is within normal limits. Sinuses and mastoids: The visualized paranasal sinuses are clear. The mastoid air cells are well pneu matized. Lung apices: Clear as visualized. IMPRESSION: 1. There is no evidence of fracture or subluxation involving the cervical spine. 2. Osteopenia and spondylotic change as above. Electronically signed by: Shar Eduardo M.D. 10/10/2018 5:06 PM
--- NOTE | 2018-10-10 17:13 | CT Scan Report ---
CT abd pelvis wo con CLINICAL HISTORY: 82 years-old Female presenting with fall, history of Alzheimer's. TECHNIQUE: Multidetector CT of the abdomen and pelvis was performed without the use of intravenous co ntrast. IV contrast: None. One or more dose lowering techniques were used consistent with the princip les of ALARA (as low as reasonably achievable), including automatic exposure control, mA or kV adjust ment to individual patient size, and/or use of iterative reconstruction. COMPARISON: None. CT DOSE (mGy.cm): The estimated cumulative dose is 253.45 mGy.cm. 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 Lung bases: Multichamber enlargement of the heart. Coronary artery and aortic valve calcification. Tr jannie right pleural effusion. Extensive peribronchovascular thickening with bandlike opacities and grou ndglass opacities at the lung bases. Liver: Normal morphology. Normal density. Biliary: No gross biliary ductal dilatation allowing for noncontrast technique. Normal gallbladder. Pancreas: Moderate parenchymal atrophy. Spleen: Normal noncontrast appearance. Adrenal glands: Normal noncontrast appearance. Kidneys and ureters: Normal noncontrast appearance. No nephrolithiasis. No hydronephrosis. Normal ure ters. Bladder: The configuration of the bladder suggests pelvic ligamentous laxity. Bladder otherwise zeeshan l. Pelvic organs: Normal noncontrast appearance. Bowel: Few diverticula in the colon. No bowel wall thickening. No bowel obstruction. The appendix is normal. Peritoneal cavity: No free fluid or intraperitoneal gas. Lymph nodes: No gross lymphadenopathy allowing for noncontrast technique. Vasculature: Atherosclerosis of the normal caliber abdominal aorta. Abdominal wall: Normal. Musculoskeletal: Osteopenia. Limits evaluation for nondisplaced fracture. Old anterior left sixth rib fracture. No acute osseous injury. Minimal height loss of T10 likely on an osteoporotic basis. IMPRESSION: 1. No acute intra-abdominal injury. No acute osseous injury. 2. Bibasilar atelectasis. 3. Trace right pleural effusion. Electronically signed by: Leonel Espinal M.D. 10/10/2018 5:12 PM
--- NOTE | 2018-10-10 17:28 | XRay Report ---
TWO VIEW CHEST CLINICAL HISTORY: Fall. FINDINGS: AP and lateral chest radiographs are compared to study dated 08/10/2018. The heart is enlarge d and there is atherosclerotic calcification of the thoracic aorta. There is prominence of the pulmon juan r vasculature. Chronic interstitial thickening is similar to previous. Platelike atelectasis is see n in the left lower lung. No airspace consolidation or pleural effusion is identified. Bibasilar atel ectasis is noted. There is no pneumothorax. The skeletal structures are osteopenic. The bony thorax a ppears intact. IMPRESSION: 1. Cardiomegaly with prominence of the central pulmonary vessels. Correlate clinically for evidence o f mild congestive failure. 2. No airspace consolidation or pleural effusion is identified. Electronically signed by: Shar Eduardo M.D. 10/10/2018 5:27 PM
--- NOTE | 2018-10-10 17:44 | Emergency Department Note ---
Entered by Patricia Castro acting as a scribe for Polo Masters DO History of Present Illness General Chief complaint: Fall History of Present Illness Onset (ago): hour(s) (this morning) Location: head Pain Consistency: + other (episodes) Quality: + other (fall) Associated symptoms: + other (abdominal pain) The patient is an 82 year old female who presents to the ED complaining of three episodes of falls that occurred this morning. She complains of abdominal pain. The aide from [facility] states that she does not use a walker when she walks. HPI severely limited secondary to dementia. Home Medications Home Medications Medication Instructions Recorded Confirmed Type acetaminophen [Tylenol] 650 mg PO Q4H PRN 08/10/18 10/10/18 History aspirin [Aspir-81] 81 mg PO DAILY 08/10/18 10/10/18 History dextromethorphan-guaifenesin 1 tab PO Q12H PRN 08/10/18 10/10/18 History [Mucinex DM] digoxin 125 mcg PO QPM 08/10/18 10/10/18 History docusate sodium [Colace] 100 mg PO DAILY 08/10/18 10/10/18 History furosemide 20 mg PO .DAILY @ NOON PRN 08/10/18 10/10/18 History furosemide 20 mg PO QAM 08/10/18 10/10/18 History levothyroxine 50 mcg PO DAILY PRN 08/10/18 10/10/18 History levothyroxine 50 mcg PO QAM 08/10/18 10/10/18 History lisinopril 5 mg PO DAILY 08/10/18 10/10/18 History melatonin 5 mg PO HS 08/10/18 10/10/18 History metoprolol succinate [Toprol XL] 100 mg PO BID 08/10/18 10/10/18 History pantoprazole 40 mg PO DAILY 08/10/18 10/10/18 History polyethylene glycol 3350 [Miralax] 17 g PO DAILY PRN 08/10/18 10/10/18 History potassium chloride 10 meq PO DAILY PRN 08/10/18 10/10/18 History potassium chloride 10 meq PO QAM 08/10/18 10/10/18 History pravastatin 20 mg PO HS 08/10/18 10/10/18 History sennosides-docusate sodium 2 tab PO HS 08/10/18 10/10/18 History [Senna-S] Allergies Allergy/AdvReac Type Severity Reaction Status Date / Time levofloxacin Allergy Unknown Unverified 10/10/18 16:40 Quinolones Allergy Unknown Unverified 10/10/18 16:40 Past Med/Surg History Medical History CAD (coronary artery disease) (Chronic) Dementia (Chronic) Atrial fibrillation (Chronic) Hyperlipidemia (Chronic) Cardiomyopathy (Chronic) Hypothyroid (Chronic) Surgical History History of cardiac cath (Chronic) Stents x 4 Family History Other Family history unobtainable Social History Preferred Language: Citizen Of [place] Communication Ability: Impaired Superintendent Job Required: No Beliefs That Will Affect Care: None Current Living Situation: Senior Living Feels Safe at Home: Yes Smoking Status: Never smoker Do You Dip or Chew Tobacco: No Hx Alcohol Use: No Hx Substance Use: No Review of Systems See HPI for pertinent positives & negatives. Other (ROS limited secondary to dementia. ) Physical Exam Vital Signs Vital Signs - 24 hr 10/10/18 16:29 10/10/18 17:10 Temperature 36.7 C Temperature Source Oral Sepsis Recent Fever Within 48 Hours No Sepsis New/Unexplained Change in Mental Status No Sepsis Action Taken by Nursing No Action Required Pulse Rate 80 Pulse Rhythm Regular Pulse Strength Normal Respiratory Rate 16 16 Respiratory Effort / Characteristics Non-Labored Non-Labored Respiratory Depth Normal Normal Respiratory Pattern Regular Regular Blood Pressure 146/99 H Blood Pressure [Right Arm] 162/90 H Blood Pressure Mean 114 Blood Pressure Mean [Right Arm] 114 Blood Pressure Position Lying Blood Pressure Position [Right Arm] Sitting Pulse Oximetry 97 95 Oxygen Delivery Method Room Air Room Air GENERAL: Patient is awake and alert. She is someone anxious appearing and combative. EYES: The conjunctivae are clear. The pupils are round and reactive. EARS, NOSE, MOUTH AND THROAT: The nose is without any evidence of any deformity. Mucous membranes are moist.Tongue is midline NECK: The neck is nontender and supple. RESPIRATORY: Normal respiratory effort is noted. There is no evidence of wheezing rhonchi or rales to auscultation. CARDIOVASCULAR: Regular rate and rhythm noted. There no murmurs rubs or gallops normal S1 normal S2 GASTROINTESTINAL: Bowel sounds are present in all quadrants. Abdomen is mildly distended but soft. The patient has tenderness to palpation, but it was erratic and not in the same place twice. BACK: No midline tenderness or or step-off noted range of motion in flexion extension as well as rotation no signs of muscle spasm noted. MUSCULOSKELETAL/EXTREMITIES: There is no evidence of gross deformity. Full range of motion is noted in the hips and shoulders. SKIN: There is no obvious evidence of any rash. There are no petechiae, pallor or cyanosis noted. NEUROLOGIC: Patient is awake and alert. She is oriented to person only. Strength is appropriate. Her patellar reflex is 2+ bilaterally. Course 1619: The patient was evaluated in room B02. A complete history and physical exam was performed. 1718: I spoke with Mayo Sim PA-C, about the patients case. She will further evaluate the patient. Consultations Consultation #1: I spoke with Mayo Sim PA-C, about the patients case. She will further evaluate the patient. Time: 17:18 Administered Medications Atorvastatin Calcium (Lipitor) 40 mg PO HS INDIO Stop: 11/09/18 21:00 Last Admin: 10/10/18 21:45 Dose: 40 mg Documented by: [id number] Digoxin (Lanoxin) 0.125 mg PO QPM INDIO Stop: 11/09/18 21:00 Last Admin: 10/10/18 21:45 Dose: 0.125 mg Documented by: [id number] Heparin Sodium (Porcine) (Heparin Sodium (Porcine)) 5,000 units SQ Q12 INDIO Stop: 11/09/18 21:00 Last Admin: 10/10/18 21:25 Dose: Not Given Documented by: [id number] Metoprolol Succinate (Toprol Xl) 100 mg PO BID INDIO Stop: 11/09/18 21:00 Last Admin: 10/10/18 21:45 Dose: 100 mg Documented by: [id number] Senna/Docusate Sodium (Senokot S) 2 tab PO HS INDIO Stop: 11/09/18 21:00 Last Admin: 10/10/18 21:45 Dose: 2 tab Documented by: [id number] Discontinued Medications Aspirin (Aspirin Chew) 324 mg PO NOW STA Stop: 10/10/18 18:47 Last Admin: 10/10/18 19:31 Dose: 324 mg Documented by: [id number] Medical Decision Making Differential Diagnosis Differential diagnosis includes: fracture, dislocation, intra-abdominal, pneumothorax, intrathoracic , intracranial, neurologic, as well as other pathologies were entertained. Medical Records Attestation: I reviewed the patient's medical records. Home Medications Current Medication List: was personally reviewed by me Laboratory Data Attestation: I reviewed the patient's lab results. Result diagrams: 10/10/18 17:44 10/10/18 17:44 Lab Results 10/10/18 10/10/18 10/10/18 Range/Units 17:44 17:44 17:44 WBC 7.31 (4.8-10.8) K/uL RBC 4.65 (4.2-5.4) M/uL Hgb 14.6 (12.0-16.0) g/dL Hct 42.7 (37-47) % MCV 91.8 (80-100) fL MCH 31.4 (25-34) pg MCHC 34.2 (32-36) g/dL RDW Std Deviation 47.0 H (36.4-46.3) fL RDW Coeff of Renee 14.0 (11.5-14.5) % Plt Count 246 (130-400) K/uL MPV 11.2 H (7.4-10.4) fL Immature Gran % (Auto) 0.1 % Neut % (Auto) 69.2 % Lymph % (Auto) 20.4 % [place] % (Auto) 9.4 % Eos % (Auto) 0.5 % Baso % (Auto) 0.4 % Immature Gran # (Auto) 0.01 (0.00-0.02) K/uL Neut # (Auto) 5.05 (1.4-6.5) K/uL Lymph # (Auto) 1.49 (1.2-3.4) K/uL [place] # (Auto) 0.69 H (0.11-0.59) K/uL Eos # (Auto) 0.04 (0-0.5) K/uL Baso # (Auto) 0.03 (0-0.2) K/uL PT 11.4 (9.0-12.0) Seconds INR 1.1 (0.9-1.1) APTT 26.6 (21.0-31.0) Seconds PTT Ratio 1.0 Sodium 142 (136-145) mmol/L Potassium 4.9 (3.5-5.1) mmol/L Chloride 110 H (98-107) mmol/L Carbon Dioxide 25 (21-32) mmol/L Anion Gap 7.0 (3-11) BUN 23 H (7-18) mg/dl Creatinine 0.91 (0.6-1.2) mg/dl Est Cr Clr Drug Dosing 40.4 ml/min Est GFR ( Amer) 67.6 Est GFR (Non-Af Amer) 58.3 BUN/Creatinine Ratio 24.9 H (10-20) Glucose 96 (70-99) mg/dl Calcium 9.7 (8.5-10.1) mg/dl Magnesium 2.3 (1.8-2.4) mg/dl Total Bilirubin 0.8 (0.2-1) mg/dl AST 20 (15-37) U/L ALT 22 (12-78) U/L Alkaline Phosphatase 59 (45-117) U/L Troponin I < 0.015 (0-0.045) ng/ml Total Protein 6.9 (6.4-8.2) gm/dl Albumin 3.7 (3.4-5.0) gm/dl Globulin 3.2 (2.5-4.0) gm/dl Albumin/Globulin Ratio 1.1 (0.9-2) TSH (0.300-4.500) uIu/ml Specimen Hemolysis Digoxin (0.8-2.0) ng/ml 10/10/18 10/10/18 Range/Units 17:44 17:44 WBC (4.8-10.8) K/uL RBC (4.2-5.4) M/uL Hgb (12.0-16.0) g/dL Hct (37-47) % MCV (80-100) fL MCH (25-34) pg MCHC (32-36) g/dL RDW Std Deviation (36.4-46.3) fL RDW Coeff of Renee (11.5-14.5) % Plt Count (130-400) K/uL MPV (7.4-10.4) fL Immature Gran % (Auto) % Neut % (Auto) % Lymph % (Auto) % [place] % (Auto) % Eos % (Auto) % Baso % (Auto) % Immature Gran # (Auto) (0.00-0.02) K/uL Neut # (Auto) (1.4-6.5) K/uL Lymph # (Auto) (1.2-3.4) K/uL [place] # (Auto) (0.11-0.59) K/uL Eos # (Auto) (0-0.5) K/uL Baso # (Auto) (0-0.2) K/uL PT (9.0-12.0) Seconds INR (0.9-1.1) APTT (21.0-31.0) Seconds PTT Ratio Sodium (136-145) mmol/L Potassium (3.5-5.1) mmol/L Chloride (98-107) mmol/L Carbon Dioxide (21-32) mmol/L Anion Gap (3-11) BUN (7-18) mg/dl Creatinine (0.6-1.2) mg/dl Est Cr Clr Drug Dosing ml/min Est GFR ( Amer) Est GFR (Non-Af Amer) BUN/Creatinine Ratio (10-20) Glucose (70-99) mg/dl Calcium (8.5-10.1) mg/dl Magnesium (1.8-2.4) mg/dl Total Bilirubin (0.2-1) mg/dl AST (15-37) U/L ALT (12-78) U/L Alkaline Phosphatase (45-117) U/L Troponin I (0-0.045) ng/ml Total Protein (6.4-8.2) gm/dl Albumin (3.4-5.0) gm/dl Globulin (2.5-4.0) gm/dl Albumin/Globulin Ratio (0.9-2) TSH 4.730 H (0.300-4.500) uIu/ml Specimen Hemolysis Digoxin 0.8 (0.8-2.0) ng/ml Imaging Data Radiologist's Impression: Radiology results as stated below per my review and the radiologist's interpretation: CT abd pelvis wo con CLINICAL HISTORY: 82 years-old Female presenting with fall, history of Alzheimer's. TECHNIQUE: Multidetector CT of the abdomen and pelvis was performed without the use of intravenous contrast. IV contrast: None. One or more dose lowering techniques were used consistent with the principles of ALARA (as low as reasonably achievable), including automatic exposure control, mA or kV adjustment to individual patient size, and/or use of iterative reconstruction. COMPARISON: None. CT DOSE (mGy.cm): The estimated cumulative dose is 253.45 mGy.cm. FINDINGS: Strap Cutting Machine Operator topogram: Unremarkable. Lung bases: Multichamber enlargement of the heart. Coronary artery and aortic valve calcification. Trace right pleural effusion. Extensive peribronchovascular thickening with bandlike opacities and groundglass opacities at the lung bases. Liver: Normal morphology. Normal density. Biliary: No gross biliary ductal dilatation allowing for noncontrast technique. Normal gallbladder. Pancreas: Moderate parenchymal atrophy. Spleen: Normal noncontrast appearance. Adrenal glands: Normal noncontrast appearance. Kidneys and ureters: Normal noncontrast appearance. No nephrolithiasis. No hydronephrosis. Normal ureters. Bladder: The configuration of the bladder suggests pelvic ligamentous laxity. Bladder otherwise normal. Pelvic organs: Normal noncontrast appearance. Bowel: Few diverticula in the colon. No bowel wall thickening. No bowel obstruction. The appendix is normal. Peritoneal cavity: No free fluid or intraperitoneal gas. Lymph nodes: No gross lymphadenopathy allowing for noncontrast technique. Vasculature: Atherosclerosis of the normal caliber abdominal aorta. Abdominal wall: Normal. Musculoskeletal: Osteopenia. Limits evaluation for nondisplaced fracture. Old anterior left sixth rib fracture. No acute osseous injury. Minimal height loss of T10 likely on an osteoporotic basis. IMPRESSION: 1. No acute intra-abdominal injury. No acute osseous injury. 2. Bibasilar atelectasis. 3. Trace right pleural effusion. Electronically signed by: Leonel Espinal M.D. 10/10/2018 5:[address] SCAN OF THE CERVICAL SPINE CLINICAL HISTORY: Fall. COMPARISON STUDY: No priors. TECHNIQUE: CT scan of the cervical spine is performed from the skull base to the upper thoracic spine. Images are reviewed in the axial, sagittal, and coronal planes. IV contrast was not administered for this examination. A dose lowering technique was utilized adhering to the principles of ALARA. CT DOSE: 866.13 mGy.cm FINDINGS: Skeletal structures: The skeletal structures are osteopenic. There is no evidence of fracture or subluxation involving the cervical spine. Vertebral body height is maintained. There is minimal anterolisthesis at C3-C4, C4-C5, and C6- C7. There is straightening of the cervical lordosis. Small anterior osteophytes are seen throughout. The odontoid process and lateral masses are intact. The atlantoaxial articulation is preserved noting mild productive degenerative change. The spinous processes appear intact. There is mild to moderate multilevel cervical spondylosis. Uncovertebral and facet arthropathy contribute to neural foraminal stenosis at several levels. Intervertebral discs: Moderate disc space narrowing is seen at C5-C6. Only mild disc space narrowing is seen at the remaining cervical levels. Central canal: Grossly patent. Soft tissues: The prevertebral and paraspinous soft tissues are within normal limits. There is atherosclerotic calcification of the carotid bulbs. The thyroid gland is atrophic. Calvarium: The visualized calvarium at the skull base appears intact. Brain parenchyma: Partially visualized brain parenchyma the skull base is within normal limits. Sinuses and mastoids: The visualized paranasal sinuses are clear. The mastoid air cells are well pneumatized. Lung apices: Clear as visualized. IMPRESSION: 1. There is no evidence of fracture or subluxation involving the cervical spine. 2. Osteopenia and spondylotic change as above. Electronically signed by: Shar Eduardo M.D. 10/10/2018 5:[address] head/brain wo con CLINICAL HISTORY: 82 years-old Female presenting with fall. TECHNIQUE: Multidetector CT imaging of the head was performed without the use of intravenous contrast. IV contrast: None. One or more dose lowering techniques were used consistent with the principles of ALARA (as low as reasonably achievable), including automatic exposure control, mA or kV adjustment to individual patient size, and/or use of iterative reconstruction. COMPARISON: 08/10/2018. CT DOSE (mGy.cm): The estimated cumulative dose is 866.13. FINDINGS: Strap Cutting Machine Operator topogram: Unremarkable. Proportional ventricular and sulcal prominence, likely age-related parenchymal volume loss. Incidental note made of a cavum septi pellucidi et vergae. No hemorrhage. Periventricular and subcortical white matter hypoattenuation, nonspecific but likely indicative of chronic small vessel ischemic change. Hypoattenuation in the paramedian right occipital lobe new from prior. Regional sulcal effacement. No mass effect or midline shift. No extra-axial fluid collection. Paranasal sinuses and mastoid air cells clear. Calvarium intact allowing for significant motion artifact which degrades evaluation of the skull base. IMPRESSION: 1. Findings highly suspicious for acute infarct in the paramedian right occipital lobe. The report will be called/faxed according to standard departmental protocol for a critical finding. Electronically signed by: Leonel Espinal M.D. 10/10/2018 5:06 PM ECG Data Attestation: I personally reviewed and interpreted this ECG as follows: Indication: other (fall) Rate (beats per minute): 78 Rhythm: atrial fibrillation Findings: + other (diffuse ST segment abnormality) and + T-wave inversion (Lateral); no PVC Comparison ECG Date: from (08/10/18) Change: no significant change Blood Pressure Blood Pressure Findings: Elevated blood pressure Blood Pressure Disposition: further management by hospitalist ZEV Narrative The patient is an 82-year-old female who presented to the emergency department from [facility]. The patient has a history of underlying dementia. History was very limited secondary to the patient's dementia. Reportedly from the prehospital personnel as well as nursing the patient has been having frequent falls over the last few days. The patient does have a history of atrial fibrillation but is not currently on anticoagulation due to a strong history of fall risk. It is unclear the exact onset of the patient's symptoms. On my exam she was very combative. Reportedly from the staff this is not new for her but her frequent falls are new. Normally the patient is able to ambulate without difficulty. She had no focal neurologic deficits on my exam although it was very limited secondary to the patient's underlying dementia. CA T scan did reveal signs of a right occipital infarct which would be a new diagnosis for her. I discussed the patient's laboratory and radiographic studies with her although I am not sure she understood what I was talking about. I also discussed her case with the on-call [facility] hospitalist group. They have agreed to evaluate the patient in the emergency department for further management and disposition. Impression & Plan Stroke, Falls, Atrial fibrillation Discharge Plan Visit Data *Final* Discharge Date/Time: 10/10/18 20:30 Chief Complaint: Fall ED Provider: Polo Masters Discharge Problem: Stroke, Falls, Atrial fibrillation Patient Disposition: Admitted As Inpatient Discharge Instructions Interventions: ED Discharge Assessment Last Done: 10/10/18 20:30 Discharge Problem: Stroke Qualifiers: CVA mechanism: unspecified Qualified Code(s): I63.9 - Cerebral infarction, unspecified Falls Qualifiers: Encounter type: initial encounter Qualified Code(s): W19.XXXA - Unspecified fall, initial encounter Atrial fibrillation Qualifiers: Atrial fibrillation type: unspecified Qualified Code(s): I48.91 - Unspecified atrial fibrillation The scribe's documentation has been prepared under my direction and personally reviewed by me in its entirety. I confirm that the note above accurately reflects all work, treatment, procedures, and medical decision making performed by me.
[2018-10-10 18:02] LABS: Basophils # (auto) 0.03 K/uL (0-0.2); Basophils % (auto) 0.4 %; Eosinophils # (auto) 0.04 K/uL (0-0.5); Eosinophils % (auto) 0.5 %; Hematocrit (blood only) 42.7 % (37-47); Hemoglobin 14.6 g/dL (12.0-16.0); Immature Granulocytes # (auto) 0.01 K/uL (0.00-0.02); Immature Granulocytes % (auto) 0.1 %; Lymphocytes # (auto) 1.49 K/uL (1.2-3.4); Lymphocytes % (auto) 20.4 %; Mean Corpuscular Hgb Conc 34.2 g/dL (32-36); Mean Corpuscular Volume 91.8 fL (80-100); Mean Platelet Volume 11.2 fL (7.4-10.4); Monocytes # (auto) 0.69 K/uL (0.11-0.59); Monocytes % (auto) 9.4 %; Neutrophils # (auto) 5.05 K/uL (1.4-6.5); Neutrophils % (auto) 69.2 %; Platelet Count 246 K/uL (130-400); Red Blood Count 4.65 M/uL (4.2-5.4); White Blood Count 7.31 K/uL (4.8-10.8)
[2018-10-10 18:20] LABS: INR 1.1 (0.9-1.1); Partial Thromboplastin Time 26.6 Seconds (21.0-31.0); Prothrombin Time 11.4 Seconds (9.0-12.0)
[2018-10-10 18:22] LABS: Alanine Aminotransferase 22 U/L (12-78); Albumin Level 3.7 gm/dl (3.4-5.0); Aspartate Aminotransferase 20 U/L (15-37); BUN Creatinine Ratio 24.9 (10-20); Blood Urea Nitrogen 23 mg/dl (7-18); Calcium 9.7 mg/dl (8.5-10.1); Carbon Dioxide 25 mmol/L (21-32); Chloride 110 mmol/L (98-107); Creatinine Clr Calc Pharmacy 40.4 ml/min; Est GFR (African American) 67.6; Est GFR (Non-African American) 58.3; Glucose 96 mg/dl (70-99); Magnesium 2.3 mg/dl (1.8-2.4); Potassium 4.9 mmol/L (3.5-5.1); Sodium 142 mmol/L (136-145)
[2018-10-10 18:25] LABS: Albumin Globulin Ratio 1.1 (0.9-2); Alkaline Phosphatase 59 U/L (45-117); Bilirubin,Total 0.8 mg/dl (0.2-1); Globulin 3.2 gm/dl (2.5-4.0); Total Protein 6.9 gm/dl (6.4-8.2); Troponin I < 0.015 ng/ml (0-0.045)
[2018-10-10] MEDS ORDERED: ASPIRIN 81 MG CHEW PO STA (18:46)
--- NOTE | 2018-10-10 18:55 | History & Physical Report ---
Date of Service October 10, 2018 Assessment & Plan (1) Stroke: Patient brought to ER from [facility] for multiple falls today. Initial fall occurred around 730 this morning and patient was noted to be holding posterior head, staff was unsure if patient hit head. It was noted that patient was having difficulty grabbing her fork which was far away for her on table today. According to staff patient appeared to be mostly at her baseline mental status CT HEAD: Findings highly suspicious for acute infarct in the paramedian right occipital lobe. -EKG in am -trend roponin -lipids and A1C in am -TSH pending -MRI brain if pt will tolerate -U/S carotids -echo with bubble study -aspiration precautions -PT/OT consult -continue statin, ASA -add plavix -neurology consult (2) Falls: Pt with reported multiple falls today CT C-SPINE: no acute fracture -obtain pelvis xray to r/o fracture - reported by staff that pt seemed to have trouble ambulating this afternoon after falls (3) Atrial fibrillation: History chronic atrial fibrillation Chronic A. fib rate controlled in 70s to 80s -Pending digoxin level -Continue digoxin, metoprolol (4) Dementia: History of dementia. Reported by staff the patient appeared to be at baseline mental status -further workup as above -will have one on one observation (5) Cardiomyopathy: (6) CAD (coronary artery disease): Hx stent x 4 History of ischemic cardiomyopathy. History echo 2016 with EF 20-25% Appears euvolemic -Continue Lasix -Continue metoprolol, aspirin, statin (7) Hypothyroid: -Pending TSH -Continue levothyroxine (8) Hyperlipidemia: -Continue statin DVT Prophylaxis -Heparin SQ Disposition DNR/DNI as per discussion with pt's daughter and per records Follows with Theresa SHIPLEY at [facility] for routine care Pt was seen with Dr Grace. See addendum History of Present Illness Chief Complaint: Falls Primary Care Provider: [facility] Pt is 82 y/o F with PMH dementia, atrial fibrillation, ischemic cardiomyopathy, hypothyroidism, HLD, CAD status post 4 stent presented to ER from [facility] for falls. Unable to obtain history from patient secondary to dementia. History obtained from [facility] staff. Staff reports patient ambulatory and walks on her own sometimes stumbles. Today's reported patient had a fall around 730 this morning unsure if patient hit her head she was noted to be holding her posterior head this morning. Patient had 3 additional falls this afternoon. It was noted at lunchtime that she was having difficulty grabbing her fork as the fork was approximately 1 foot away and she seemed to have trouble locating the fork with her hand. At baseline patient often whispers to herself and does not answer appropriately. Later in the day today patient was noticed to having conversation with no one else in the room which was unusual from her baseline. Staff report otherwise patient mental status appears at baseline. Staff reports did not notice any facial drooping or slurred speech. Staff also report patient requires multiple prompting to follow commands at baseline. Spoke with patient's daughter reports that patient 2 days ago and she thought she was walking differently and is described as trying to walk faster than her legs would move. Daughter reports patient had baseline often does not recognize family members. Staff have not noticed any fevers or chills. Currently in ER when patient is asked if any pain she answers no. Outpatient labs reviewed and noted that patient had a negative urine culture on 10/02/2018 History echo 2017: EF 20-25% Allergies Allergy/AdvReac Type Severity Reaction Status Date / Time levofloxacin Allergy Unknown Unverified 10/10/18 16:40 Quinolones Allergy Unknown Unverified 10/10/18 16:40 Home Medications Home Medications Medication Instructions Recorded Confirmed Type acetaminophen [Tylenol] 650 mg PO Q4H PRN 08/10/18 10/10/18 History aspirin [Aspir-81] 81 mg PO DAILY 08/10/18 10/10/18 History dextromethorphan-guaifenesin 1 tab PO Q12H PRN 08/10/18 10/10/18 History [Mucinex DM] digoxin 125 mcg PO QPM 08/10/18 10/10/18 History docusate sodium [Colace] 100 mg PO DAILY 08/10/18 10/10/18 History furosemide 20 mg PO .DAILY @ NOON PRN 08/10/18 10/10/18 History furosemide 20 mg PO QAM 08/10/18 10/10/18 History levothyroxine 50 mcg PO DAILY PRN 08/10/18 10/10/18 History levothyroxine 50 mcg PO QAM 08/10/18 10/10/18 History lisinopril 5 mg PO DAILY 08/10/18 10/10/18 History melatonin 5 mg PO HS 08/10/18 10/10/18 History metoprolol succinate [Toprol XL] 100 mg PO BID 08/10/18 10/10/18 History pantoprazole 40 mg PO DAILY 08/10/18 10/10/18 History polyethylene glycol 3350 [Miralax] 17 g PO DAILY PRN 08/10/18 10/10/18 History potassium chloride 10 meq PO DAILY PRN 08/10/18 10/10/18 History potassium chloride 10 meq PO QAM 08/10/18 10/10/18 History pravastatin 20 mg PO HS 08/10/18 10/10/18 History sennosides-docusate sodium 2 tab PO HS 08/10/18 10/10/18 History [Senna-S] Past Med/Surg History Medical History CAD (coronary artery disease) (Chronic) Dementia (Chronic) Atrial fibrillation (Chronic) Hyperlipidemia (Chronic) Cardiomyopathy (Chronic) Hypothyroid (Chronic) Surgical History History of cardiac cath (Chronic) Stents x 4 Family History Other Family history unobtainable Social History Preferred Language: [place] Feels Safe at Home: Yes Smoking Status: Never smoker Review of Systems Review of Systems: Unobtainable due to cognitive status Physical Exam Physical Exam: General: no acute distress, WDWN Head: normocephalic, atraumatic Eyes: PERRL, unable to test EOM's as pt will not follow finger or follow commands. Unsure of pt's visual lomas, she appears to be looking in direction of provider with talking, and is noted to be pointing at writing on pillow, conjunctiva non-injected, anicteric ENT: normal inspection external ears, nose, mucous membranes moist Neck: supple, trachea midline Lungs: clear, no respiratory distress, no wheezing/rhonchi/rales CV: irregularly irregular, rate 80, no pretibial edema Abd: normal BS, soft, non-tender Ext: no cyanosis, no apparent calf tenderness; pt noted to be able to lift bilateral arms to approx 90 degrees with repeated prompting however does not hold arms up. Noted to squeeze care givers finger with bilateral hands however will not squeeze this providers hands; limited active flexion at bilateral knees Neuro: Alert, currently pleasant. Does not follow commands well, takes repeated prompting and then partially follows command, unsure if slurred speech. Pt responds yes and no clearly then whispers quietly at times and hard to ascertain if speech is slurred, no facial drooping, further neuro testing unable to be completed secondary to pt's inability to follow commands Skin: warm, dry Results & Data Vital Signs (Past 12 Hours) Vital Signs Temp Pulse Resp BP BP Pulse Ox 10/10/18 17:10 16 162/90 H 95 10/10/18 16:29 36.7 C 80 16 146/99 H 97 Laboratory Results Short CBC 10/10/18 Range/Units 17:44 WBC 7.31 (4.8-10.8) K/uL Hgb 14.6 (12.0-16.0) g/dL Hct 42.7 (37-47) % Plt Count 246 (130-400) K/uL BMP 10/10/18 17:44 Sodium 142 Potassium 4.9 Chloride 110 H Carbon Dioxide 25 BUN 23 H Creatinine 0.91 Glucose 96 Calcium 9.7 Cardiac Enzymes 10/10/18 Range/Units 17:44 Troponin I < 0.015 (0-0.045) ng/ml Liver Function 10/10/18 Range/Units 17:44 Total Bilirubin 0.8 (0.2-1) mg/dl AST 20 (15-37) U/L ALT 22 (12-78) U/L Alkaline Phosphatase 59 (45-117) U/L Albumin 3.7 (3.4-5.0) gm/dl Diagnostic Findings CT HEAD: IMPRESSION: 1. Findings highly suspicious for acute infarct in the paramedian right occipital lobe. CT C SPINE: IMPRESSION: 1. There is no evidence of fracture or subluxation involving the cervical spine. 2. Osteopenia and spondylotic change as above. CXR: IMPRESSION: 1. Cardiomegaly with prominence of the central pulmonary vessels. Correlate clinically for evidence of mild congestive failure. 2. No airspace consolidation or pleural effusion is identified. CT ABD/PELVIS: IMPRESSION: 1. No acute intra-abdominal injury. No acute osseous injury. 2. Bibasilar atelectasis. 3. Trace right pleural effusion. Supervising Physician Co-Signing Physician Notes Patient is an 82-year-old female with history of dementia, atrial fibrillation, ischemic cardiomyopathy and other problems presents from [facility] with history of multiple falls. Most of the history is obtained from patient's medical records, ER staff and staff from [facility] gnosticist patient is a poor historian secondary to dementia. Please review HPI for complete details of presentation. CT head shows findings suggestive of acute infarct in the paramedian right occipital lobe. She is on aspirin and pravastatin at home. Grossly moves all extremities. Difficult to perform complete neurological exam as patient has dementia, and does not follow commands. On exam patient is elderly, thin, no apparent distress, normocephalic atraumatic, lungs clear to auscultation, irregularly irregular rhythm, no pedal edema, abdomen soft nontender, grossly moves all extremities. Patient is admitted for management of acute CVA, multiple falls. Plan to continue aspirin, add Plavix, change pravastatin to Lipitor. Check echo, carotid ultrasound, MRI if patient permits. Consulted neurology. PT OT. Sitter at bedside requested as patient gets amy tated intermittently at baseline. I personally reviewed the record. Patient is interviewed and examined at bedside. Patient's care is coordinated with Arina Braga PA-C. Please refer to the documentation above for details of patient's presentation and for discussion of other issues.
--- NOTE | 2018-10-10 19:57 | XRay Report ---
XR pelvis 1-2V routine CLINICAL HISTORY: 82 years-old Female presenting with R/O fracture; h/o falls today. TECHNIQUE: Single frontal view of the pelvis was obtained. COMPARISON: Correlation made to CT performed earlier the same day. FINDINGS: Sacroiliac joints, pubic symphysis, and right hip joint congruent. Osteopenia. This limits evaluation for nondisplaced fracture. Allowing for this, no acute fracture or malalignment. No advanced degener ative change. Atherosclerosis noted. Vascular stents may be present in the right femoral vessels. IMPRESSION: No acute osseous injury. Electronically signed by: Leonel Espinal M.D. 10/10/2018 7:56 PM
[2018-10-10] MEDS ORDERED: PHARMACIST DISCHARGE MED REC CONSULT PRN (21:01)
[2018-10-10] MEDS ORDERED: ACETAMINOPHEN 325 MG TAB PO PRN (21:01)
[2018-10-10] MEDS ORDERED: NON-FORMULARY MEDICATION (Melatonin 5 MG) PO SCH (21:01)
[2018-10-10] MEDS ORDERED: ATORVASTATIN 40 MG TAB PO SCH (21:01)
[2018-10-10] MEDS: HEPARIN SOD 5,000 UNIT/0.5 ML VIAL SQ SCH (21:25)
[2018-10-10] MEDS: DIGOXIN 0.125 MG TAB PO SCH (21:45)
[2018-10-10] MEDS: METOPROLOL SUCC 50MG EXT REL TAB PO SCH (21:45)
[2018-10-10] MEDS: DOCUSATE SODIUM/SENNA 50/8.6MG TAB PO SCH (21:45)
[2018-10-11] MEDS: LEVOTHYROXINE SODIUM 50 MCG TABLET PO SCH (05:15)
[2018-10-11 05:38] LABS: Basophils # (auto) 0.05 K/uL (0-0.2); Basophils % (auto) 0.6 %; Eosinophils # (auto) 0.09 K/uL (0-0.5); Eosinophils % (auto) 1.1 %; Hematocrit (blood only) 44.2 % (37-47); Immature Granulocytes # (auto) 0.01 K/uL (0.00-0.02); Immature Granulocytes % (auto) 0.1 %; Lymphocytes # (auto) 1.59 K/uL (1.2-3.4); Lymphocytes % (auto) 20.3 %; Mean Corpuscular Hgb Conc 33.9 g/dL (32-36); Mean Corpuscular Volume 92.3 fL (80-100); Monocytes # (auto) 0.72 K/uL (0.11-0.59); Monocytes % (auto) 9.2 %; Neutrophils # (auto) 5.37 K/uL (1.4-6.5); Neutrophils % (auto) 68.7 %; Platelet Count 249 K/uL (130-400); RDW Standard Deviation 47.7 fL (36.4-46.3); Red Blood Count 4.79 M/uL (4.2-5.4); White Blood Count 7.83 K/uL (4.8-10.8)
[2018-10-11 06:13] LABS: BUN Creatinine Ratio 26.8 (10-20); Creatinine Clr Calc Pharmacy 34.8 ml/min; Est GFR (African American) 72.4; Est GFR (Non-African American) 62.5; Potassium 4.2 mmol/L (3.5-5.1)
[2018-10-11 06:37] LABS: Estimated Average Glucose 126 mg/dl
--- NOTE | 2018-10-11 08:47 | Ultrasound Report ---
BILATERAL CAROTID DOPPLER STUDY HISTORY: stroke COMPARISON: None. TECHNIQUE: Real-time, grayscale, and color Doppler sonography of the carotid arteries was performed. Imaging reviewed in the transverse and longitudinal planes. All measurements were calculated based on NASCET criteria. FINDINGS: Antegrade flow is seen in the bilateral vertebral arteries. The brachial pressures were not obtained. The peak systolic velocity within the right ICA is 41 cm/s. The right systolic ratio is 1. The peak systolic velocity within the left ICA is 57 cm/s. The left systolic ratio is 1.1. IMPRESSION: No hemodynamically significant stenosis seen within the carotid arteries. Electronically signed by: Prasanna Hammer M.D. 10/11/2018 8:45 AM
[2018-10-11] MEDS: ASPIRIN 81 MG ECTAB PO SCH (08:54)
[2018-10-11] MEDS: DOCUSATE SODIUM 100 MG CAP PO SCH (08:54)
[2018-10-11] MEDS: POTASSIUM CHLORIDE 10 MEQ TABCR PO SCH (08:55)
[2018-10-11] MEDS: CLOPIDOGREL BISULFATE 75 MG TAB PO SCH (08:55)
[2018-10-11] MEDS: HEPARIN SOD 5,000 UNIT/0.5 ML VIAL SQ SCH ×2 (08:55→20:55)
[2018-10-11] MEDS: PANTOprazole 40 MG TAB PO SCH (08:55)
[2018-10-11] MEDS: FUROSEMIDE 20 MG TAB PO SCH (08:55)
[2018-10-11] MEDS: LISINOPRIL 10 MG TAB PO SCH (08:55)
[2018-10-11] MEDS: METOPROLOL SUCC 50MG EXT REL TAB PO SCH ×2 (08:55→20:55)
[2018-10-11] MEDS ORDERED: POLYETHYLENE (MIRALAX) 17 GM PACK PO PRN (09:00)
--- NOTE | 2018-10-11 13:16 | Hospitalist Progress Note ---
Date of Service October 11, 2018 Assessment & Plan (1) Stroke: Patient brought to ER from [facility] for multiple falls today. Initial fall occurred around 730 morning of admission and patient was noted to be holding posterior head, staff was unsure if patient hit head. It was noted that patient was having difficulty grabbing her fork which was far away for her on table. Baseline per daughter- Advanced dementia- confused, recognizes her most of the times, speech- difficulty speaking full sentences, jumbles up words. Gait- Ambulated without assistance Current status- Right sided weakness ?, Gait imbalance (difficult to assess). Speech- minimal verbal communication, unable to have a meaningful conversation ACUTE STROKE, right occipital lobe Work up- CT HEAD: Findings highly suspicious for acute infarct in the paramedian right occipital lobe. MRI- unable to tolerate (cancelled), Echo- Will avoid as wont size changer and patient gets agitated with tests. US duplex- No stenosis. -On ASA, pravastatin 20 mg q HS as at home. LDL 68. Started on Plavix this admission. Discussed with daughter as hx of a fib- Not a candidate for anticoagulation though given advanced demenia , age. Understands higher risk of stroke, acceptable. -PT/OT consult- May not participate much -Neurology consulted on admission (2) Falls: Pt with reported multiple falls secondary to new stroke as above CT C-SPINE: no acute fracture -Pelvic x ray- Neg for fractures (3) Atrial fibrillation: History chronic atrial fibrillation Chronic A. fib rate controlled in 70s to 80s -Digoxin level- 0.8 -Continue digoxin, metoprolol (4) Dementia: History of advanced dementia. Reported by staff the patient appeared to be at baseline mental status -Baseline per daughter- Advanced dementia- confused, recognizes her most of the times, speech- difficulty speaking full sentences, jumbles up words. Gait- Am bulated without assistance -Current status- Right sided weakness ?, Gait imbalance (difficult to assess). Speech- minimal verbal communication, unable to have a meaningful conversation -1:1 observation (5) Cardiomyopathy: (6) CAD (coronary artery disease): Hx stent x 4 History of ischemic cardiomyopathy. History echo 2016 with EF 20-25% Appears euvolemic -Continue Lasix -Continue metoprolol, aspirin, statin (7) Hypothyroid: -TSH- Normal -Continue levothyroxine (8) Hyperlipidemia: Lipid panel- LDL 68. Continue with pravastatin 20 mg q HS at home DVT Prophylaxis -Heparin SQ Disposition DNR/DNI as per discussion with pt's daughter and per records. Had a detailed discussion about goals of care. Does not want aggressive or heroic measures. Understands patient's limitations in participation with therapy and recommendations as patient does not follow commands. Follows with Theresa SHIPLEY at [facility] for routine care Plan is for [facility] with rehab on Sunday. Pt was seen with Dr Grace. See addendum Subjective Patient has advanced dementia at baseline Patient is disoriented x3, somewhat restless.. Does not follow any commands Sitter by bedside Daughter by bedside Physical Exam Physical Exam: GENERAL-disoriented x3, somewhat restless, not in acute distress LUNGS- Did not allow me to listen to front, back- clear HEART- Did not cooperate EXTREMITIES- Good peripheral pulses, no edema NEUROMUSCULAR-not cooperative with full exam. Right upper and lower extremity weakness, left upper extremitypower 5/5. Left lower extremityunable to assess Results & Data Vital Signs (Past 12 Hours) Vital Signs Temp Pulse Pulse Resp BP Pulse Ox 10/11/18 08:00 84 10/11/18 07:45 67 16 130/80 94 10/11/18 04:09 36.2 C L 75 14 148/90 H 96
--- NOTE | 2018-10-11 14:27 | Neurology Consultation ---
Date of Consultation October 11, 2018 Assessment & Plan (1) Stroke: 1. CT head - right occiptal lobe 2. severe dementia exam is limited but description of patient prior to admission would seem to correlate with location of stroke 3. PT/OT speech for discharge needs 4. continue current medication for rate control 5. already on aspirin 81 mg she is not appropriate for anticoagulation 6. fall precautions further recommendations to follow Supervising Physician Co-Signing Physician Notes I have seen and discussed above patient with Dr Matt Gr. Patient was seen and examined. No family at bedside. She is awake in chair. Non cooperative. Not following commands. No gaze preference. Appears to be neglecting left side as she is leaning toward the window. Prominent grasp reflex on examine. Moving most extremities. Non verbal. CT head reviewed and shows subacute right BAND TOP MAKER infarct. Carotid US shows no high grade stenosis. Stroke likely embolic given history of afib not on anticoagulation which per chart review was discussed with family. She has history of dementia and falls. If family does not wish to pursue anticoagulation (NOAC) I would recommend ASA 81 mg daily. Would need to discuss with family goals of care and if wishing to pursue aggressive medical management than I would recommend cardiology consult for consideration of watchman device. Agree with high intensity statin. I woud also recommend straight Cath for UA while patient is admitted. Otherwise ok to discharge to SNF from neuro standpoint. History of Present Illness Reason for Consultation: stroke Requesting Physician: Marcia Bui MD Attending Physician: Marcia Bui History of Present Illness Cindy is a 82 year old female with PMH dementia, AF, ischemic cardiomyopathy, hypothyroidism, HLD, CAD status post 4 stent presented to ER from [facility] for falls. She is ambulatory and walks on her own sometimes stumbles. She was holding the posterior head this morning after a fall. She then had 3 additional falls this afternoon. She was also having difficulty grabbing her fork as the fork was approximately 1 foot away and she seemed to have trouble locating the fork with her hand. She has severe dementia at baseline talking to herself and other that are not in your room. There was no facial droop or slurred speech but at baseline she does not follow commands without numerous promptings. Her daughter felt her walking was faster than her legs would move. Daughter reports patient had baseline often does not recognize family members. Currently she is lying in bed and does not cooperate with exam. Allergies Allergy/AdvReac Type Severity Reaction Status Date / Time levofloxacin Allergy Unknown Unverified 10/10/18 16:40 Quinolones Allergy Unknown Unverified 10/10/18 16:40 Home Medications Home Medications Medication Instructions Recorded Confirmed Type acetaminophen [Tylenol] 650 mg PO Q4H PRN 08/10/18 10/10/18 History aspirin [Aspir-81] 81 mg PO DAILY 08/10/18 10/10/18 History dextromethorphan-guaifenesin 1 tab PO Q12H PRN 08/10/18 10/10/18 History [Mucinex DM] digoxin 125 mcg PO QPM 08/10/18 10/10/18 History docusate sodium [Colace] 100 mg PO DAILY 08/10/18 10/10/18 History furosemide 20 mg PO .DAILY @ NOON PRN 08/10/18 10/10/18 History furosemide 20 mg PO QAM 08/10/18 10/10/18 History levothyroxine 50 mcg PO DAILY PRN 08/10/18 10/10/18 History levothyroxine 50 mcg PO QAM 08/10/18 10/10/18 History lisinopril 5 mg PO DAILY 08/10/18 10/10/18 History melatonin 5 mg PO HS 08/10/18 10/10/18 History metoprolol succinate [Toprol XL] 100 mg PO BID 08/10/18 10/10/18 History pantoprazole 40 mg PO DAILY 08/10/18 10/10/18 History polyethylene glycol 3350 [Miralax] 17 g PO DAILY PRN 08/10/18 10/10/18 History potassium chloride 10 meq PO DAILY PRN 08/10/18 10/10/18 History potassium chloride 10 meq PO QAM 08/10/18 10/10/18 History pravastatin 20 mg PO HS 08/10/18 10/10/18 History sennosides-docusate sodium 2 tab PO HS 08/10/18 10/10/18 History [Senna-S] Patient History Medical History CAD (coronary artery disease) (Chronic) Dementia (Chronic) Atrial fibrillation (Chronic) Hyperlipidemia (Chronic) Cardiomyopathy (Chronic) Hypothyroid (Chronic) Surgical History History of cardiac cath (Chronic) Stents x 4 Family History Other Family history unobtainable Social History Preferred Language: Australian Communication Ability: Impaired Mat Puncher Required: No Beliefs That Will Affect Care: None marital status: Current Living Situation: [facility] Feels Safe at Home: Yes Smoking Status: Never smoker Do You Dip or Chew Tobacco: No Hx Alcohol Use: No Hx Substance Use: No Physical Exam Physical Exam: Gen: alert not oriented lungs: CTA CV irregular moves all extremities spontaneously does not cooporate with exam but does pull self up in bed unable to test for gross peripheral field cut. sensation intact to light touch Results & Data Vital Signs (Past 12 Hours) Vital Signs Temp Pulse Pulse Resp BP Pulse Ox 10/11/18 08:00 84 10/11/18 07:45 67 16 130/80 94 10/11/18 04:09 36.2 C L 75 14 148/90 H 96 Laboratory Results Abnormal lab results 10/10/18 10/10/18 10/10/18 Range/Units 17:44 17:44 17:44 RDW Std Deviation 47.0 H (36.4-46.3) fL MPV 11.2 H (7.4-10.4) fL [place] # (Auto) 0.69 H (0.11-0.59) K/uL Chloride 110 H (98-107) mmol/L BUN 23 H (7-18) mg/dl BUN/Creatinine Ratio 24.9 H (10-20) Hemoglobin A1c (4.5-5.6) % TSH 4.730 H (0.300-4.500) uIu/ml 10/11/18 10/11/18 10/11/18 Range/Units 05:19 05:19 05:19 RDW Std Deviation 47.7 H (36.4-46.3) fL MPV 11.0 H (7.4-10.4) fL [place] # (Auto) 0.72 H (0.11-0.59) K/uL Chloride 111 H (98-107) mmol/L BUN 23 H (7-18) mg/dl BUN/Creatinine Ratio 26.8 H (10-20) Hemoglobin A1c 6.0 H (4.5-5.6) % TSH (0.300-4.500) uIu/ml Diagnostic Findings CT abdomen pelvis- No acute intra-abdominal injury. No acute osseous injury. Bibasilar atelectasis. Trace right pleural effusion. CT c spine- There is no evidence of fracture or subluxation involving the cervical spine. Osteopenia and spondylotic change as above. CXR- Cardiomegaly with prominence of the central pulmonary vessels. Correlate clinically for evidence of mild congestive failure. . No airspace consolidation or pleural effusion is identified. CT head-. Findings highly suspicious for acute infarct in the paramedian right occipital lobe. The report will be called/faxed according to standard departmental protocol for a critical finding. XRay pelvis-No acute osseous injury. Carotid doppler-No hemodynamically significant stenosis seen within the carotid arteries. TTE- EF 20-25% no ASD (1) Stroke CVA mechanism: unspecified Qualified Code(s): I63.9 - Cerebral infarction, unspecified
[2018-10-11] MEDS: DIGOXIN 0.125 MG TAB PO SCH (20:54)
[2018-10-11] MEDS: DOCUSATE SODIUM/SENNA 50/8.6MG TAB PO SCH (20:56)
[2018-10-11] MEDS ORDERED: ATORVASTATIN 40 MG TAB PO SCH (21:00)
[2018-10-12] MEDS: LEVOTHYROXINE SODIUM 50 MCG TABLET PO SCH (06:27)
[2018-10-12 06:59] LABS: Appearance Urine Clear (Clear); Bilirubin Urine Negative (Negative); Blood Urine Negative (Negative); Color Urine Dark Yellow; Glucose Urine UA Negative (Negative); Ketones Urine 1+ (Negative); Leukocyte Esterase Urine Negative (Negative); Nitrite Urine Negative (Negative); Protein Urine Negative (Negative); Urobilinogen Urine Negative (Negative); pH Urine 6.5 (4.5-7.5)
[2018-10-12 07:02] LABS: Basophils # (auto) 0.02 K/uL (0-0.2); Basophils % (auto) 0.2 %; Eosinophils # (auto) 0.05 K/uL (0-0.5); Eosinophils % (auto) 0.6 %; Hematocrit (blood only) 44.8 % (37-47); Hemoglobin 15.6 g/dL (12.0-16.0); Immature Granulocytes # (auto) 0.02 K/uL (0.00-0.02); Immature Granulocytes % (auto) 0.2 %; Lymphocytes # (auto) 1.47 K/uL (1.2-3.4); Lymphocytes % (auto) 16.4 %; Mean Corpuscular Hgb Conc 34.8 g/dL (32-36); Mean Corpuscular Volume 90.7 fL (80-100); Mean Platelet Volume 10.8 fL (7.4-10.4); Monocytes # (auto) 0.98 K/uL (0.11-0.59); Neutrophils % (auto) 71.6 %; Platelet Count 256 K/uL (130-400); RDW Coefficient of Variation 13.8 % (11.5-14.5); RDW Standard Deviation 46.1 fL (36.4-46.3); Red Blood Count 4.94 M/uL (4.2-5.4); White Blood Count 8.94 K/uL (4.8-10.8)
[2018-10-12 07:35] LABS: BUN Creatinine Ratio 36.7 (10-20); Calcium 9.2 mg/dl (8.5-10.1); Creatinine Clr Calc Pharmacy 41.3 ml/min; Est GFR (African American) 86.8; Est GFR (Non-African American) 74.9; Potassium 3.9 mmol/L (3.5-5.1)
[2018-10-12] MEDS: HEPARIN SOD 5,000 UNIT/0.5 ML VIAL SQ SCH (10:34)
[2018-10-12] MEDS: DOCUSATE SODIUM 100 MG CAP PO SCH (10:35)
[2018-10-12] MEDS: METOPROLOL SUCC 50MG EXT REL TAB PO SCH (10:35)
[2018-10-12] MEDS: FUROSEMIDE 20 MG TAB PO SCH (10:36)
[2018-10-12] MEDS: PANTOprazole 40 MG TAB PO SCH (10:36)
[2018-10-12] MEDS: CLOPIDOGREL BISULFATE 75 MG TAB PO SCH (10:36)
[2018-10-12] MEDS: LISINOPRIL 10 MG TAB PO SCH (10:36)
[2018-10-12] MEDS: POTASSIUM CHLORIDE 10 MEQ TABCR PO SCH (10:37)
[2018-10-12] MEDS: ASPIRIN 81 MG ECTAB PO SCH (10:38)
--- NOTE | 2018-10-12 10:38 | Hospitalist Progress Note ---
Date of Service October 12, 2018 Assessment & Plan (1) Stroke: Patient brought to ER from [facility] for multiple falls today. Initial fall occurred around 730 morning of admission and patient was noted to be holding posterior head, staff was unsure if patient hit head. It was noted that patient was having difficulty grabbing her fork which was far away for her on table. Baseline per daughter- Advanced dementia- confused, recognizes her most of the times, speech- difficulty speaking full sentences, jumbles up words. Gait- Ambulated without assistance Current status- Right sided weakness ?, Gait imbalance (difficult to assess). Speech- minimal verbal communication, unable to have a meaningful conversation ACUTE STROKE, Right occipital lobe Work up- CT HEAD: Findings highly suspicious for acute infarct in the paramedian right occipital lobe. MRI- unable to tolerate (cancelled), Echo- EF 20-25%, left atrium, right atrium severely dilated, severe MR, hypokinesis -On ASA 81 mg daily, pravastatin 20 mg q HS as at home. LDL 68. Discussed with daughter as hx of a fib- Not a candidate for anticoagulation though given advanced dementia , age, wont let anyone take her blood work. Understands higher risk of stroke, acceptable. -PT/OT consult- May not participate much -Neurology consulted on admission- appreciate inputs. Daughter would not want any aggressive diagnostic or therapeutic interventions given advanced dementia, poor quality of life at baseline (2) Falls: Pt with reported multiple falls secondary to new stroke as above CT C-SPINE: no acute fracture -Pelvic x ray- Neg for fractures (3) Atrial fibrillation: History chronic atrial fibrillation Chronic A. fib rate controlled in 70s to 80s -Digoxin level- 0.8 -Continue digoxin, metoprolol (4) Dementia: History of advanced dementia. Reported by staff the patient appeared to be at baseline mental status -Baseline per daughter- Advanced dementia- confused, recognizes her most of the times, speech- difficulty speaking full sentences, jumbles up words. Gait- Ambulated without assistance -Current status- Right sided weakness ?, Gait imbalance (difficult to assess). Speech- minimal verbal communication, unable to have a meaningful conversation (5) Cardiomyopathy: (6) CAD (coronary artery disease): Hx stent x 4 History of ischemic cardiomyopathy. History echo 2016 with EF 20-25% Appears euvolemic -Continue Lasix -Continue metoprolol, aspirin, statin (7) Hypothyroid: -TSH- Normal -Continue levothyroxine (8) Hyperlipidemia: Lipid panel- LDL 68. Continue with pravastatin 20 mg q HS at home DVT Prophylaxis -Heparin SQ Disposition DNR/DNI as per discussion with pt's daughter and per records. Had a detailed discussion about goals of care. Does not want aggressive or heroic measures. Understands patient's limitations in participation with therapy and recommendations as patient does not follow commands. Want to focus on keeping her comfortable. Follows with Theresa SHIPLEY at [facility] for routine care Plan is for [facility] with rehab today. Called daughter, went into voice message- left a message but was aware about discharge plan. Subjective Patient has advanced dementia at baseline. Patient is disoriented x3, somewhat restless.. Does not follow any commands Physical Exam Physical Exam: GENERAL-disoriented x3, somewhat restless, not in acute distress LUNGS- Did not allow me to listen to front, back- clear HEART- Did not cooperate EXTREMITIES- Good peripheral pulses, no edema NEUROMUSCULAR-not cooperative with full exam. Right upper and lower extremity weakness, left upper extremitypower 5/5. Left lower extremityunable to assess Results & Data Vital Signs (Past 12 Hours) Vital Signs Pulse Pulse Resp BP BP Pulse Ox 10/12/18 06:43 74 20 137/87 91 10/12/18 00:00 94 H 77 22 132/81 92
--- NOTE | 2018-10-12 11:19 | Discharge Summary ---
Date of Service October 12, 2018 Admission HPI Per Admitting Provider Pt is 82 y/o F with PMH dementia, atrial fibrillation, ischemic cardiomyopathy, hypothyroidism, HLD, CAD status post 4 stent presented to ER from [facility] for falls. Unable to obtain history from patient secondary to dementia. History obtained from [facility] staff. Staff reports patient ambulatory and walks on her own sometimes stumbles. Today's reported patient had a fall around 730 this morning unsure if patient hit her head she was noted to be holding her posterior head this morning. Patient had 3 additional falls this afternoon. It was noted at lunchtime that she was having difficulty gra bbing her fork as the fork was approximately 1 foot away and she seemed to have trouble locating the fork with her hand. At baseline patient often whispers to herself and does not answer appropriately. Later in the day today patient was noticed to having conversation with no one else in the room which was unusual from her baseline. Staff report otherwise patient mental status appears at baseline. Staff reports did not notice any facial drooping or slurred speech. Staff also report patient requires multiple prompting to follow commands at baseline. Spoke with patient's daughter reports that patient 2 days ago and she thought she was walking differently and is described as trying to walk faster than her legs would move. Daughter reports patient had baseline often does not recognize family members. Staff have not noticed any fevers or chills. Currently in ER when patient is asked if any pain she answers no. Outpatient labs reviewed and noted that patient had a negative urine culture on 10/02/2018 History echo 2017: EF 20-25% Principal Diagnosis 1. Acute stroke, Right occipital lobe, likely embolic 2. Falls secondary to new stroke 3. Advanced dementia Secondary diagnoses on discharge 1. Advanced dementia 2. Ischemic cardiomyopathy with EF 20 to 25% 3. Coronary artery disease 4. Atrial fibrillation not on anticoagulation 5. Hypothyroidism 6. Hyperlipidemia Discharge Exam GENERAL-disoriented x3, somewhat restless, not in acute distress LUNGS- Did not allow me to listen to front, back- clear HEART- Did not cooperate EXTREMITIES- Good peripheral pulses, no edema NEUROMUSCULAR-not cooperative with full exam. Right upper and lower extremity weakness, left upper extremitypower 5/5. Left lower extremityunable to assess Discharge Data Allergies Allergy/AdvReac Type Severity Reaction Status Date / Time levofloxacin Allergy Unknown Unverified 10/10/18 16:40 Quinolones Allergy Unknown Unverified 10/10/18 16:40 Consultations 10/10/18 17:19 ED Decision to Admit Stat 10/10/18 21:01 Consult Case Management - Discharge Planning Routine Consult Neurology Routine Ordered Studies 10/10/18 16:25 CT abd pelvis wo con Stat CT cervical spine wo con Stat CT head/brain wo con Stat 10/11/18 21:01 US carotid doppler BI Routine Hospital Course (1) Stroke: Patient brought to ER from [facility] for multiple falls today. Initial fall occurred around 730 morning of admission and patient was noted to be holding posterior head, staff was unsure if patient hit head. It was noted that patient was having difficulty grabbing her fork which was far away for her on table. Baseline per daughter- Advanced dementia- confused, recognizes her most of the times, speech- difficulty speaking full sentences, jumbles up words. Gait- Ambulated without assistance Current status- Right sided weakness ?, Gait imbalance (difficult to assess). Speech- minimal verbal communication, unable to have a meaningful conversation ACUTE STROKE, Right occipital lobe Work up- CT HEAD: Findings highly suspicious for acute infarct in the paramedian right occipital lobe. MRI- unable to tolerate (cancelled), Echo- EF 20-25%, left atrium, right atrium severely dilated, severe MR, hypokinesis -On ASA 81 mg daily, pravastatin 20 mg q HS as at home-continue. LDL 68. Discussed with daughter as hx of a fib- Not a candidate for anticoagulation though given advanced dementia , age, wont let anyone take her blood work. Understands higher risk of stroke, acceptable. -PT/OT consult- May not participate much -Neurology consulted on admission- appreciate inputs. Daughter would not want any aggressive diagnostic or therapeutic interventions given advanced dementia, poor quality of life at baseline (2) Falls: Pt with reported multiple falls secondary to new stroke as above CT C-SPINE: no acute fracture -Pelvic x ray- Neg for fractures (3) Atrial fibrillation: History chronic atrial fibrillation Chronic A. fib rate controlled in 70s to 80s -Digoxin level- 0.8 -Continue digoxin, metoprolol (4) Dementia: History of advanced dementia. Reported by staff the patient appeared to be at baseline mental status -Baseline per daughter- Advanced dementia- confused, recognizes her most of the times, speech- difficulty speaking full sentences, jumbles up words. Gait- Ambulated without assistance -Current status- Right sided weakness ?, Gait imbalance (difficult to assess). Speech- minimal verbal communication, unable to have a meaningful conversation (5) Cardiomyopathy: (6) CAD (coronary artery disease): Hx stent x 4 History of ischemic cardiomyopathy. History echo 2017 with EF 20-25% Appears euvolemic -Continue Lasix -Continue metoprolol, aspirin, statin (7) Hypothyroid: -TSH- Normal -Continue levothyroxine (8) Hyperlipidemia: Lipid panel- LDL 68. Continue with pravastatin 20 mg q HS at home DVT Prophylaxis -Heparin SQ Disposition DNR/DNI as per discussion with pt's daughter and per records. Had a detailed discussion about goals of care. Does not want aggressive or heroic measures. Understands patient's limitations in participation with therapy and recommendations as patient does not follow commands. Want to focus on keeping her comfortable. Follows with Theresa SHIPLEY at [facility] for routine care Plan is for [facility] with rehab today. Called daughter, went into voice message- left a message but was aware about discharge plan. Total Time Total Time Spent Total Time Spent (In Minutes): 40 minutes Discharge Plan Discharge Items Patient Disposition: Transfer Group Home Fac Reason For Visit: STROKE Discharge Diagnosis: Acute pontine stroke Discharge Goals: Decrease discomfort Activity: Resume your previous activity Activity Comment: TOLERATED- PT/OT recommended Non-emergency contact: Primary Care Provider Call non-emergency contact if: your symptoms worsen Follow-up/Referrals: Daya Lawson at [facility] [Primary Care Provider] - Diet: Heart Healthy Add Provider Instructions: MEDICATION CHANGES None Continue with ASA 81 mg daily, pravastatin Prescriptions: Continued aspirin [Aspir-81] 81 mg Tablet,Delayed Release (Dr/Ec) 81 mg PO DAILY RF: 0 docusate sodium [Colace] 100 mg Capsule 100 mg PO DAILY RF: 0 digoxin 125 mcg Tablet 125 mcg PO QPM RF: 0 polyethylene glycol 3350 [Miralax] 17 gram/dose Powder 17 g PO DAILY PRN (Reason: Constipation) RF: 0 furosemide 20 mg Tablet 20 mg PO .DAILY @ NOON PRN (Reason: Edema) RF: 0 lisinopril 10 mg Tablet 5 mg PO DAILY RF: 0 melatonin 5 mg Tablet 5 mg PO HS RF: 0 Mucinex DM 30-600 mg Tablet Extended Release 12 Hr 1 tab PO Q12H PRN (Reason: Congestion) RF: 0 pantoprazole 40 mg Tablet,Delayed Release (Dr/Ec) 40 mg PO DAILY RF: 0 potassium chloride 10 mEq Tablet,Er Particles/Crystals 10 meq PO DAILY PRN (Reason: WEIGHT INCREASE) RF: 0 potassium chloride 10 mEq Capsule, Extended Release 10 meq PO QAM RF: 0 pravastatin 20 mg Tablet 20 mg PO HS RF: 0 sennosides-docusate sodium [Senna-S] 8.6-50 mg Tablet 2 tab PO HS RF: 0 levothyroxine 50 mcg Tablet 50 mcg PO QAM RF: 0 levothyroxine 50 mcg Tablet 50 mcg PO DAILY PRN (Reason: PREVIOUS REFUSAL) RF: 0 metoprolol succinate [Toprol XL] 100 mg Tablet Extended Release 24 Hr 100 mg PO BID RF: 0 acetaminophen [Tylenol] 325 mg Tablet 650 mg PO Q4H PRN (Reason: Fever Or Pain) RF: 0 Discontinued furosemide 20 mg Tablet 20 mg PO QAM RF: 0 Stand-Alone Forms: [facility] Discharge Orders: Discharge Order (Routine); Ordered 10/12/18 Ordered By: Marcia Bui Skilled Items Patient informed of condition?: No (Daughter informed Patient has dementia) DNR: Yes Discharge Level of Care: Skilled Communicable Disease: No Discharge Prognosis: Stable Admission Data Admit Date/Time: 10/10/18 18:46 Attending Provider: Marcia Bui Admit Provider: Jose Grace Primary Care Provider: Daya Lawson [facility] Other Providers: Jose Grace ; Daron Knight Service: Telemetry Medical
[2018-10-12] MEDS ORDERED: STROKE PATIENT DISCHARGE STA (11:21)
== END 2018-10-12 13:55 | DRG 66 ==
LOC: ED 16:17 → 2N 18:46

== ENCOUNTER 2018-10-18 16:46 | Inpatient (IN) ==
[2018-10-18] MEDS ORDERED: ONDANSETRON INJ 2 MG/ML 2 ML VIAL IV STA (16:53)
[2018-10-18] MEDS ORDERED: MoRPHine SULFATE 4 MG/ML 1 ML CARP\\VIAL IV STA (16:53)
--- NOTE | 2018-10-18 17:22 | XRay Report ---
XR hip RT 2-3V w pelvis CLINICAL HISTORY: 82 years-old Female presenting with r hip pain. TECHNIQUE: Single frontal view the pelvis and frontal and lateral views of the right hip were obtaine d. COMPARISON: 10/10/2018. FINDINGS: Interval development of an intertrochanteric fracture of the right femur. Significant varus angulatio n. Proximal displacement of the distal fracture fragment. The femoral head remains congruent in the a cetabulum. Few surrounding fracture fragments noted. Atherosclerosis with possible disruption of athe rosclerotic calcifications in the region of the right femoral vessels. Underlying osteopenia. Bony pelvis intact. Left hip joint congruent as is the pubic symphysis and sacral iliac joints. Moder ate stool ball in the rectum. Lower lumbar spine normal. IMPRESSION: 1. Displaced and angulated intertrochanteric right femur fracture. 2. Findings suspicious for disruption of the right femoral vessels given disrupted atherosclerotic c alcifications. 3. No acute osseous injury of the pelvis. 4. Moderate stool burden in the rectum. 5. Osteopenia. Electronically signed by: Leonel Espinal M.D. 10/18/2018 5:21 PM
--- NOTE | 2018-10-18 17:23 | XRay Report ---
XR chest 1V portable CLINICAL HISTORY: 82 years-old Female presenting with fall. TECHNIQUE: Portable supine AP view of the chest was obtained. COMPARISON: 10/10/2018. FINDINGS: Atherosclerosis of the aortic arch. Cardiac silhouette enlarged. Coronary artery stents in place. No focal opacity. No large effusion or pneumothorax. Osteopenia. IMPRESSION: 1. Cardiomegaly with multiple coronary artery stents. No other convincing evidence of acute cardiopu lmonary disease. Electronically signed by: Leonel Espinal M.D. 10/18/2018 5:22 PM
--- NOTE | 2018-10-18 17:27 | XRay Report ---
XR femur RT 2V routine CLINICAL HISTORY: 82 years-old Female presenting with r leg pain. TECHNIQUE: Frontal and lateral views of the right femur were obtained. COMPARISON: None. FINDINGS: Right hip joint congruent though there is an intertrochanteric fracture of the right femur. Significa nt varus angulation. Proximal displacement of the distal fracture fragment. Underlying osteopenia. Vi sualized portion of bony pelvis intact. Atherosclerotic calcifications noted. Right knee joint congru ent. IMPRESSION: Intertrochanteric right femur fracture with significant angulation and proximal displacement. Electronically signed by: Leonel Espinal M.D. 10/18/2018 5:25 PM
[2018-10-18 17:45] LABS: Basophils # (auto) 0.02 K/uL (0-0.2); Basophils % (auto) 0.1 %; Hematocrit (blood only) 44.9 % (37-47); Hemoglobin 15.4 g/dL (12.0-16.0); Immature Granulocytes # (auto) 0.04 K/uL (0.00-0.02); Immature Granulocytes % (auto) 0.3 %; Lymphocytes # (auto) 1.22 K/uL (1.2-3.4); Lymphocytes % (auto) 8.8 %; Mean Corpuscular Hgb Conc 34.3 g/dL (32-36); Mean Corpuscular Volume 92.2 fL (80-100); Mean Platelet Volume 11.2 fL (7.4-10.4); Monocytes # (auto) 1.16 K/uL (0.11-0.59); Monocytes % (auto) 8.3 %; Neutrophils # (auto) 11.48 K/uL (1.4-6.5); Neutrophils % (auto) 82.5 %; Platelet Count 297 K/uL (130-400); RDW Coefficient of Variation 13.7 % (11.5-14.5); RDW Standard Deviation 46.4 fL (36.4-46.3); Red Blood Count 4.87 M/uL (4.2-5.4); White Blood Count 13.92 K/uL (4.8-10.8)
--- NOTE | 2018-10-18 17:55 | CT Scan Report ---
CT OF THE HEAD WITHOUT CONTRAST CLINICAL HISTORY: Fall. COMPARISON STUDY: Head CT October 10, 2018. CT DOSE: 850.60 mGy.cm TECHNIQUE: Helical axial images of the head were obtained without IV contrast. Automated exposure con trol was utilized for the study. A dose lowering technique was utilized adhering to the principles o f ALARA. FINDINGS: No acute intracranial hemorrhage, midline shift or mass effect is present. Ventricular syst em is stable. Cavum septum pellucidum is incidentally noted. The basilar cisterns are patent. There a re no extra axial collections. There is been expected evolution of the right occipital lobe infarct s silvina head CT of October 10, 2018. White matter hypodensity suggests small vessel disease. There are no fi ndings to suggest acute dural sinus thrombosis or acute territorial infarct. There is an old lacunar infarct within left thalamus. There is no calvarial fracture. IMPRESSION: 1. No acute intracranial findings. 2. No calvarial fracture. 3. Expected evolution of the right occipital lobe infarct since head CT of October 10, 2018. Electronically signed by: Jhoan Nesbitt M.D. 10/18/2018 5:54 PM
[2018-10-18 17:56] LABS: INR 1.1 (0.9-1.1); Prothrombin Time 11.2 Seconds (9.0-12.0)
--- NOTE | 2018-10-18 17:58 | CT Scan Report ---
CT cervical spine wo con CLINICAL HISTORY: 82 years-old Female presenting with fall today. TECHNIQUE: Multidetector CT of the cervical spine was performed without the use of intravenous contra st. IV contrast: None. One or more dose lowering techniques were used consistent with the principles of ALARA (as low as reasonably achievable), including automatic exposure control, mA or kV adjustment to individual patient size, and/or use of iterative reconstruction. COMPARISON: 10/10/2018. CT DOSE (mGy.cm): The estimated cumulative dose is 850.6. 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 Normal cervical lordosis. Osteopenia. Vertebral body heights maintained. Trace anterolisthesis of C3 on C4 and C4 on C5 as well as C6 on C7. Moderate intervertebral disc height loss at C5-6. Disc osteop hyte complex at C5-6 without significant posterior bony spurring. Allowing for the limited sensitivit y of CT, no evidence of soft tissue effacement of the spinal canal. No acute fracture or subluxation. Mild diffuse facet arthropathy. Multilevel osseous neural foraminal narrowing largely results from f acet arthropathy and mild uncovertebral hypertrophy. Lung apices clear. Atherosclerosis. Paraspinal s oft tissues within normal limits. IMPRESSION: 1. No acute osseous injury of the cervical spine. 2. Mild multilevel degenerative changes. 3. Osteopenia. Electronically signed by: Leonel Espinal M.D. 10/18/2018 5:56 PM
[2018-10-18 18:02] LABS: Alanine Aminotransferase 24 U/L (12-78); Albumin Level 3.9 gm/dl (3.4-5.0); Aspartate Aminotransferase 26 U/L (15-37); BUN Creatinine Ratio 40.1 (10-20); Blood Urea Nitrogen 47 mg/dl (7-18); Calcium 10.3 mg/dl (8.5-10.1); Carbon Dioxide 28 mmol/L (21-32); Chloride 111 mmol/L (98-107); Est GFR (African American) 50.4; Est GFR (Non-African American) 43.5; Glucose 127 mg/dl (70-99); Potassium 4.5 mmol/L (3.5-5.1); Sodium 149 mmol/L (136-145)
[2018-10-18 18:17] LABS: Albumin Globulin Ratio 1.1 (0.9-2); Alkaline Phosphatase 74 U/L (45-117); Bilirubin,Total 1.1 mg/dl (0.2-1); Globulin 3.5 gm/dl (2.5-4.0); Total Protein 7.4 gm/dl (6.4-8.2); Troponin I 0.072 ng/ml (0-0.045)
[2018-10-18 20:05] LABS: Appearance Urine Cloudy (Clear); Bacteria Urine Automated 1+ (Negative); Bilirubin Urine Negative (Negative); Blood Urine Negative (Negative); Color Urine Dark Yellow; Epithelial Cell Urine Auto 0-5 /lpf (0-5); Glucose Urine UA Negative (Negative); Ketones Urine Negative (Negative); Leukocyte Esterase Urine 2+ (Negative); Nitrite Urine Negative (Negative); RBC Urine Automated 0-4 /hpf (0-4); Specific Gravity Urine 1.018 (1.000-1.030); Urobilinogen Urine Negative (Negative); WBC Urine Automated >30 /hpf (0-5); pH Urine 8.5 (4.5-7.5)
--- NOTE | 2018-10-18 20:14 | History & Physical Report ---
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 X-ray reveals acute displaced comminuted intertrochanteric fracture of the right femur Significant lab findings include leukocytosis at 13,000 elevated BUN 47, creatinine 1.16, sodium 149, calcium 10.3, troponin 0 0.072 Urinalysis concerning for UTI CT of head reveals evolving right occipital lobe infarct but no acute abnormality Admit to Med Surg Orthopedics consulted Pt had recent echo done reveals EF 20-25% Revised cardiac risk index 10.1% trend troponin, no ecg changes - elevated likely secondary to demand ischemia IVF D5 1/2 NS 60cc/hr given LILLIAN Bed Rest Pre op antibiotics ordered (4) UTI (urinary tract infection): wbc 13k, urine + leukoesterase and bacturia Probable urinary tract infection will treat empirically with 1 g Rocephin until culture returns (5) LILLIAN (acute kidney injury): baseline cr 0.7-0.8 BUN/creatinine 47 and 1.16 Hold Lasix and lisinopril IVF D5 half NS at 60/hr bmp in a.m (6) Constipation: Per pelvic x-ray moderate stool burden in the rectum Order to schedule suppository x1 Continue routine bowel regimen (7) Cardiomyopathy: History stents x4 with known ischemic cardiomyopathy Echo done 10/2018 revealed EF 20 to 25%, left and right atrium severely dilated, severe MR, hypokinesis Continue ASA, statin, metoprolol, lisinopril Hold Lasix given current LILLIAN Monitor daily weights Strict I's and O's (8) CAD (coronary artery disease): History stents x4 with known ischemic cardiomyopathy troponin elevated 0.072, ecg w/o acute ST changes Echo done 10/2018 revealed EF 20 to 25%, left and right atrium severely dilated, severe MR, hypokinesis cycle troponin, likely demand ischemia Continue ASA, statin, metoprolol Hold Lasix and lisinopril given current LILLIAN Monitor daily weights Strict I's and O's (9) Atrial fibrillation: Rate and rhythm controlled on metoprolol and digoxin Digoxin level 1.5 (10) Hypothyroid: Continue levothyroxine (11) DVT prophylaxis: hold off on VTE for now until CTA RLE returns and discussed with ortho reassess on daily basis need for chemical vte prophylaxis Disposition: case management consulted, likely return back to [facility] upon discharge Follow [facility]: [facility] Patient was seen and examined in collaboration with Dr. Morataya, please see addendum Discussed with Daughter KYLE Hanson, regarding above assessment and plan of pt, she agrees with above Margie contact number is [phone] History of Present Illness Chief Complaint: Fall with RLE Pain x 1 day. 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 Unable to obtain history from patient given advanced dementia. History obtained from daughter. Unfortunately patient was hospitalized at [facility] on 10/10 secondary to fall, increased confusion and difficulty using fork. Pt was diagnosed with acute right occipital lobe stroke. Work-up at that time revealed EF 20 to 25%, left atrium, right atrium severely dilated, severe MR and hypokinesis. Given patient's advanced dementia discussion with daughter recommended against any aggressive diagnostic or therapeutic interventions. She was recommended to continue on aspirin and statin for risk reduction therapy, but not on anticoagulation given advanced age and dementia. Prior to CVA patient was ambulatory with out assist device and would even, "run" at times per daughter. Ever since CVA she has been W/C bound. Discharged on 10/12/18. She has been having daily falls secondary to forgetting she is unable to walk. She sustained her last fall last evening at dinner. Due to complaints of right hip pain she was sent to ED for evaluation. Allergies Allergy/AdvReac Type Severity Reaction Status Date / Time levofloxacin Allergy Unknown Unverified 10/18/18 17:44 Quinolones Allergy Unknown Unverified 10/18/18 17:44 Home Medications Home Medications Medication Instructions Recorded Confirmed Type Mucinex DM 1 tab PO Q12H PRN 08/10/18 10/18/18 History acetaminophen [Tylenol] 650 mg PO Q4H PRN 08/10/18 10/18/18 History aspirin [Aspir-81] 81 mg PO QAM 08/10/18 10/18/18 History digoxin 125 mcg PO QPM 08/10/18 10/18/18 History docusate sodium [Colace] 100 mg PO QAM 08/10/18 10/18/18 History furosemide 20 mg PO QAM 08/10/18 10/18/18 History levothyroxine 50 mcg PO QAM 08/10/18 10/18/18 History melatonin 5 mg PO HS 08/10/18 10/18/18 History metoprolol succinate [Toprol XL] 100 mg PO BIDM 08/10/18 10/18/18 History pantoprazole 40 mg PO QAM 08/10/18 10/18/18 History polyethylene glycol 3350 [Miralax] 17 g PO DAILY PRN 08/10/18 10/18/18 History potassium chloride 10 meq PO QAM 08/10/18 10/18/18 History pravastatin 20 mg PO HS 08/10/18 10/18/18 History sennosides-docusate sodium 2 tab PO HS 08/10/18 10/18/18 History [Senna-S] lisinopril 5 mg PO QAM 10/18/18 10/18/18 History Past Med/Surg History Medical History CAD (coronary artery disease) (Chronic) Dementia (Chronic) Atrial fibrillation (Chronic) Hyperlipidemia (Chronic) Cardiomyopathy (Chronic) EF 20-25% Hypothyroid (Chronic) CVA (cerebral vascular accident) 1-2 weeks ago Surgical History History of cardiac cath (Chronic) Stents x 4 Family History Other Family history unobtainable Social History Preferred Language: Czech Communication Ability: Impaired Communication Ability Comment: h/o CVA, non-verbal at this time Plant Cytologist Required: No Beliefs That Will Affect Care: Pentecostalism Pentecostalism Beliefs: [facility] marital status: Current Living Situation: [facility] Current Living Situation Comment: [facility] since d/c after CVA (was @ [facility] ([place], [place]) memory care unit) current occupational status: retired Feels Safe at Home: Yes Safety Concerns: Feels Safe At This Time Smoking Status: Never smoker Do You Dip or Chew Tobacco: No Hx Alcohol Use: No Hx Substance Use: No Review of Systems Review of Systems: Unobtainable due to cognitive status Physical Exam Physical Exam: Gen: Thin, cachectic, frail elderly female, lying in bed, responsive to painful stimuli but otherwise unable to answer questions appropriately Head: Normocephalic, Atraumatic, bilateral temporal wasting Eyes: Sclera normal, no conjunctival injection, Pupils equal, reactive to light but slow to respond L > R ENT: Unable to inspect given pt unable to follow commands, membranes very dry Neck: supple, no adenopathy, No JVD, no bruit, Resp: Clear to auscultation b/l with shallow respirations, no wheeze, rales, rhonchi. Decreased insp/exp effort, no accessory muscle use CV: irregular rate, irregular rhythm, no murmur, rub, gallop, or ectopy Abd: +BS x 4, soft, nontender, nondistended Musculoskeletal: b/l upper ext with decort posturing, able to passively extend/flex, RLE shortened and everted, unable to assess strength Extremities: No edema bilaterally, R foot cold with discoloration to toes compared to L, diminished/absent R Pedal pulse, +1 L peda pulse Skin: warm, moist, no rash, numerous ecchymosis to b/l lower and upper ext, mod turgor, cap refill > 2sec Neuro: Alert and responsive to painful stimuli, demented, doesn't follow commands or answer questions approp, unable to assess cranial nerves : deferred Results & Data Vital Signs (Past 12 Hours) Vital Signs Temp Pulse Resp BP Pulse Ox 10/18/18 19:05 80 11 L 112/58 L 97 10/18/18 18:45 93 H 26 H 112/58 L 98 10/18/18 16:53 96 10/18/18 16:46 36.4 C L 77 18 155/83 H 100 Laboratory Results Short CBC 10/18/18 Range/Units 17:27 WBC 13.92 H (4.8-10.8) K/uL Hgb 15.4 (12.0-16.0) g/dL Hct 44.9 (37-47) % Plt Count 297 (130-400) K/uL BMP 10/18/18 17:27 Sodium 149 H Potassium 4.5 Chloride 111 H Carbon Dioxide 28 BUN 47 H Creatinine 1.16 Glucose 127 H Calcium 10.3 H Cardiac Enzymes 10/18/18 Range/Units 17:27 Troponin I 0.072 H* (0-0.045) ng/ml Liver Function 10/18/18 Range/Units 17:27 Total Bilirubin 1.1 H (0.2-1) mg/dl AST 26 (15-37) U/L ALT 24 (12-78) U/L Alkaline Phosphatase 74 (45-117) U/L Albumin 3.9 (3.4-5.0) gm/dl Diagnostic Findings Hip/Pelvis Xray: IMPRESSION: 1. Displaced and angulated intertrochanteric right femur fracture. 2. Findings suspicious for disruption of the right femoral vessels given disrupted atherosclerotic calcifications. 3. No acute osseous injury of the pelvis. 4. Moderate stool burden in the rectum. 5. Osteopenia. Head CT: IMPRESSION: 1. No acute intracranial findings. 2. No calvarial fracture. 3. Expected evolution of the right occipital lobe infarct since head CT of October 10, 2018. Femur Xray: IMPRESSION: Intertrochanteric right femur fracture with significant angulation and proximal displacement. CXR: IMPRESSION: 1. Cardiomegaly with multiple coronary artery stents. No other convincing evidence of acute cardiopulmonary disease. Cspine CT: IMPRESSION: 1. No acute osseous injury of the cervical spine. 2. Mild multilevel degenerative changes. 3. Osteopenia. Medications Administered Discontinued Medications Morphine Sulfate (Morphine Sulfate) 4 mg IV NOW STA Stop: 10/18/18 16:54 Last Admin: 10/18/18 17:25 Dose: 4 mg Documented by: [id number] Ondansetron HCl (Zofran) 4 mg IV NOW STA Stop: 10/18/18 16:54 Last Admin: 10/18/18 17:26 Dose: 4 mg Documented by: [id number] ECG Rate (beats per minute): 91 Rhythm: atrial fibrillation Code Status & VTE Plan Code Status DNR/DNI Reviewed with family and POLST VTE Prophylaxis Plan VTE Prophylaxis will be ordered: No Supervising Physician Co-Signing Physician Notes Care coordinated with Pham Spaulding PA-C. Agree with above note. Patient seen and examined. Please refer to her notes for full details. Vital signs reviewed. Physical exam: General exam: Sleeping. Not in acute distress. CVS: S1 and S2 heard, regular rate and rhythm, no murmurs. RS: Clear to auscultation, no wheezing or crackles. ABD: Soft, bowel sounds present, nontender, no distention. 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 Labs: Reviewed. Assessment and plan: Fall right hip fx saran has dementia in dementia unit since last 2yrs. recognizes family members and makes little sense as per daughter. But was ambulating fine and can eat herself. on october 10 admitted for cva and got discharged back to [facility] since discharge requiring 2 assist for ambulation an requiring some help with feeding comes with fall and right hip fx hx of afib not on anticoagulation secondary to fall risk hx of systolic chf with ef 25% mild elevation of troponin possibly demand ischemia. Will f/u serial ce Ortho consulted and notified cardiology consult for pre op npo, gentle fluids close monitor Other diagnosis and plan of care as per Pham Spaulding PA-C. Tim canales MD. (1) Atrial fibrillation Atrial fibrillation type: unspecified Qualified Code(s): I48.91 - Unspecified atrial fibrillation (2) Fracture of right hip Encounter type: initial encounter Fracture type: closed Qualified Code(s): S72.001A - Fracture of unspecified part of neck of right femur, initial encounter for closed fracture (3) Fall Encounter type: initial encounter Qualified Code(s): W19.XXXA - Unspecified fall, initial encounter
[2018-10-18 20:18] LABS: Protein Urine Negative (Negative)
[2018-10-18 20:22] LABS: Triple Phosphate Crystal Urine Present (None Prsent)
[2018-10-18] MEDS ORDERED: OPTIRAY 320 125ml IV PRN (20:24)
--- NOTE | 2018-10-18 20:41 | CT Scan Report ---
CTA OF THE RIGHT HIP/THIGH CLINICAL HISTORY: Right hip fracture. Evaluate for arterial occlusion/disruption. COMPARISON STUDY: CT of the abdomen and pelvis October 10, 2018. Right hip and femur radiographs perform ed earlier today. TECHNIQUE: Helical axial images of the right hip/thigh were obtained during arterial phase following intravenous injection 119 cc Optiray 320. Sagittal coronal reconstructed reviewed as well as maximal intensity projections on an independent 3-D workstation. Automated exposure control was utilized for the study. A dose lowering technique was utilized adhering to the principles of ALARA. FINDINGS: Note is made of a comminuted moderately displaced intertrochanteric fracture of the right f emur. No additional acute fractures are identified on this exam. Mild adjacent infiltration/hemorrhag e is noted. There is no evidence for vascular injury on this examination. The right common femoral, s uperficial femoral, profunda and popliteal arteries are intact. There is moderate atherosclerotic nini que without severe stenosis. There is no evidence for dissection. No vessel cut off is identified. Th ere is no pseudoaneurysm. A Mckeon balloon and gas are present within the bladder. IMPRESSION: 1. No evidence for vascular injury. Intact right common femoral, superficial femoral, profunda and po pliteal arteries. Moderate plaque without severe stenosis. 2. Acute displaced comminuted intertrochanteric fracture of the right femur. Electronically signed by: Jhoan Nesbitt M.D. 10/18/2018 8:40 PM
[2018-10-18 21:00] LABS: Creatine Kinase 366 U/L (26-192)
[2018-10-18] MEDS ORDERED: MAGNESIUM HYDROXIDE SUSP 30 ML UDC PO PRN ×2 (22:00)
[2018-10-18] MEDS ORDERED: BISACODYL 10 MG SUPP PR STA (22:00)
[2018-10-18] MEDS ORDERED: OXYCODONE HCL IR 5 MG TAB (IMMEDIATE RELEASE) PO PRN (22:00)
[2018-10-18] MEDS ORDERED: NALOXONE HCL 0.4 MG/1 ML VIAL/CARP IV PRN (22:00)
[2018-10-18] MEDS ORDERED: ONDANSETRON INJ 2 MG/ML 2 ML VIAL IV PRN (22:00)
[2018-10-18] MEDS ORDERED: POLYETHYLENE (MIRALAX) 17 GM PACK PO PRN (22:00)
[2018-10-18] MEDS ORDERED: ALUMINUM/MAGNESIUM SUSP 30 ML UDC PO PRN (22:00)
[2018-10-18] MEDS ORDERED: BISACODYL 10 MG SUPP PR PRN (22:00)
[2018-10-18] MEDS ORDERED: ACETAMINOPHEN 325 MG TAB PO PRN ×2 (22:00)
[2018-10-18] MEDS: cefTRIAXone SODIUM 1,000 MG in DEXTROSE 5% 50 ML IV SCH (22:32)
[2018-10-18] MEDS: D5W AND 1/2NSS 1,000 ML IV SCH (22:34)
--- NOTE | 2018-10-18 23:19 | Emergency Department Note ---
Entered by Marilyn Geronimo acting as a scribe for Jonel Hall DO History of Present Illness General Chief complaint: Fall Stated complaint: fall/ R hip fx Time Seen by Provider: 10/18/18 16:46 Source: EMS Mode of arrival: EMS Limitations: other (dementia) History of Present Illness Provider complaint: Fall Onset (ago): day(s) (last night) Location: lower extremity (hip) Pain Consistency: + other (episode) Quality: + other (fall) Treatments prior to arrival: none The patient is an 82 year old female with a history of dementia, CAD, atrial fibrillation, hyperlipidemia, cardiomyopathy, hypothyroidism, and a cardiac catheterization and a stroke who presents to the Emergency Room with complaints of an episode of a fall occurring last night. Per EMS, the patient was recently transferred to [facility] and has suffered numerous falls since. They state that she is currently complaining of hip pain and that an x-ray this morning showed a fracture of her right hip. They report that the patient is currently at her baseline. HPI limited secondary to dementia. Home Medications Home Medications Medication Instructions Recorded Confirmed Type Mucinex DM 1 tab PO Q12H PRN 08/10/18 10/18/18 History acetaminophen [Tylenol] 650 mg PO Q4H PRN 08/10/18 10/18/18 History aspirin [Aspir-81] 81 mg PO QAM 08/10/18 10/18/18 History digoxin 125 mcg PO QPM 08/10/18 10/18/18 History docusate sodium [Colace] 100 mg PO QAM 08/10/18 10/18/18 History furosemide 20 mg PO QAM 08/10/18 10/18/18 History levothyroxine 50 mcg PO QAM 08/10/18 10/18/18 History melatonin 5 mg PO HS 08/10/18 10/18/18 History metoprolol succinate [Toprol XL] 100 mg PO BIDM 08/10/18 10/18/18 History pantoprazole 40 mg PO QAM 08/10/18 10/18/18 History polyethylene glycol 3350 [Miralax] 17 g PO DAILY PRN 08/10/18 10/18/18 History potassium chloride 10 meq PO QAM 08/10/18 10/18/18 History pravastatin 20 mg PO HS 04/06/19 06/14/19 History sennosides-docusate sodium 2 tab PO HS 08/10/18 10/18/18 History [Senna-S] lisinopril 5 mg PO QAM 10/18/18 10/18/18 History Allergies Allergy/AdvReac Type Severity Reaction Status Date / Time levofloxacin Allergy Unknown Unverified 10/18/18 17:44 Quinolones Allergy Unknown Unverified 10/18/18 17:44 Past Med/Surg History Medical History CAD (coronary artery disease) (Chronic) Dementia (Chronic) Atrial fibrillation (Chronic) Hyperlipidemia (Chronic) Cardiomyopathy (Chronic) Hypothyroid (Chronic) Surgical History History of cardiac cath (Chronic) Stents x 4 Family History Other Family history unobtainable Social History Preferred Language: Cymro Communication Ability: Impaired Communication Ability Comment: h/o CVA, non-verbal at this time Perlite Grinder Required: No Beliefs That Will Affect Care: [facility] Beliefs: [employer] of the [facility] marital status: Current Living Situation: Long Term Current Living Situation Comment: [facility] since d/c after CVA (was @ [facility] memory care unit) current occupational status: retired Feels Safe at Home: Yes Safety Concerns: Feels Safe At This Time Smoking Status: Never smoker Do You Dip or Chew Tobacco: No Hx Alcohol Use: No Hx Substance Use: No Review of Systems Other (Limited secondary to dementia) Physical Exam Vital Signs Vital Signs - 24 hr 10/18/18 16:46 10/18/18 16:53 10/18/18 18:45 Temperature 36.4 C L Temperature Source Oral Sepsis Recent Fever Within 48 Hours No Sepsis New/Unexplained Change in Mental Status No Sepsis Action Taken by Nursing No Action Required Pulse Rate 77 93 H Pulse Rate from SpO2 Sensor 74 Respiratory Rate 18 26 H Respiratory Effort / Characteristics Non-Labored Respiratory Depth Normal Respiratory Pattern Regular Blood Pressure 155/83 H 112/58 L Blood Pressure Mean 107 76 Pulse Oximetry 100 96 98 Oxygen Delivery Method Room Air Room Air Room Air 10/18/18 19:05 10/18/18 19:43 Temperature Temperature Source Sepsis Recent Fever Within 48 Hours Sepsis New/Unexplained Change in Mental Status Sepsis Action Taken by Nursing Pulse Rate 80 Pulse Rate from SpO2 Sensor 86 Respiratory Rate 11 L Respiratory Effort / Characteristics Non-Labored Spontaneous Respiratory Depth Normal Respiratory Pattern Blood Pressure 112/58 L Blood Pressure Mean 76 Pulse Oximetry 97 Oxygen Delivery Method Room Air GENERAL: lying in bed, disheveled, screams "ow!" on palpation, no acute distress , non-toxic HEAD: normal cephalic, atraumatic EYE EXAM: normal conjunctiva, PERRL and EOM's grossly intact OROPHARYNX: no exudate, no erythema, lips, buccal mucosa, and tongue normal and mucous membranes are moist NECK: supple, no nuchal rigidity, no adenopathy, non-tender CHEST: stable to compression anteriorly and posteriorly LUNGS: clear to auscultation. Normal chest wall mechanics HEART: no murmurs, S1 normal and S2 normal ABDOMEN: abdomen soft, non-tender, normo-active bowel sounds, no masses, no rebound or guarding. PELVIS: stable to compression anteriorly and posteriorly BACK: Back is symmetrical on inspection and there is no deformity, no midline tenderness, no CVA tenderness. UPPER EXTREMITIES: full active and passive range of motion of all joints without tenderness to palpation LOWER EXTREMITIES: full active and passive range of motion of all joints without tenderness to palpation with exception of the right hip which is acutely tender to palpation tracking down to the femur. Withdraws toes on the right secondary to pain. Moving left lower extremity spontaneously without tenderness to palpation. DPs 2/4. SKIN: Multiple bruises. Small abrasion to the right elbow NEURO EXAM: Cranial nerves II-XII grossly intact, awake, alert, yelling secondary to pain, no focal weakness in upper extremities. Demented at baseline per family Course ED COURSE: Vital signs were reviewed and showed situational hypertension. The patients medical record was reviewed The above diagnostic studies were performed and reviewed. ED treatments and interventions as stated above. 1647: The patient was evaluated in room C10. A complete history and physical examination was performed. 1840: Upon reevaluation, the patient is resting. I discussed my findings with the patient and her family. They expressed desire for the option of a hip replacement. They understand and agree with the treatment plan. 1841: I reviewed the patient's case with Pham Huber PA-C on behalf of Dr. Morataya - [facility]. Dr. Morataya will evaluate the patient for further management. 2: I reviewed the patient's case with Dr. Pedro - [facility]. Based on the patients age, coexisting illnesses, exam and lab findings the decision to treat as an inpatient was made. The patient remained stable while under my care. The patient will be evaluated for further management. Consultations Consultation #1: I reviewed the patient's case with Pham Huber PA-C on behalf of Dr. Morataya - [facility]. Dr. Morataya will evaluate the patient for further management. Time: 18:41 Consultation #2: I reviewed the patient's case with Dr. Pedro - Orthopedic [facility], [facility]. Time: 19:22 Administered Medications Dextrose/Sodium Chloride (D5w And 1/2nss) 1,000 mls @ 60 mls/hr IV .[id number] INDIO Stop: 11/17/18 20:01 Last Admin: 10/18/18 22:34 Dose: 60 mls/hr Documented by: [id number] Ceftriaxone Sodium 1,000 mg/ (Dextrose) 50 mls @ 100 mls/hr IV Q24H INDIO; Protocol Stop: 10/23/18 21:59 Last Admin: 10/18/18 22:32 Dose: 100 mls/hr Documented by: [id number] Discontinued Medications Ioversol (Optiray 320 125ml) 120 ml IV ONCE PRN PRN Reason: Interaction Checking Stop: 10/22/18 20:23 Last Admin: 10/18/18 20:25 Dose: 120 ml Documented by: [id number] Morphine Sulfate (Morphine Sulfate) 4 mg IV NOW STA Stop: 10/18/18 16:54 Last Admin: 10/18/18 17:25 Dose: 4 mg Documented by: [id number] Ondansetron HCl (Zofran) 4 mg IV NOW STA Stop: 10/18/18 16:54 Last Admin: 10/18/18 17:26 Dose: 4 mg Documented by: [id number] Medical Decision Making Differential Diagnosis Differential diagnosis: Etiologies such as fracture, dislocation, intra-abdominal, pneumothorax, intrathoracic , intracranial, neurologic, as well as other traumatic pathologies were entertained. Medical Records Attestation: I reviewed the patient's medical records. Home Medications Current Medication List: was personally reviewed by me Laboratory Data Attestation: I reviewed the patient's lab results. Result diagrams: 10/18/18 17:27 10/18/18 17:27 Lab Results 10/18/18 10/18/18 10/18/18 Range/Units 17:27 17:27 17:27 WBC 13.92 H (4.8-10.8) K/uL RBC 4.87 (4.2-5.4) M/uL Hgb 15.4 (12.0-16.0) g/dL Hct 44.9 (37-47) % MCV 92.2 (80-100) fL MCH 31.6 (25-34) pg MCHC 34.3 (32-36) g/dL RDW Std Deviation 46.4 H (36.4-46.3) fL RDW Coeff of Renee 13.7 (11.5-14.5) % Plt Count 297 (130-400) K/uL MPV 11.2 H (7.4-10.4) fL Immature Gran % (Auto) 0.3 % Neut % (Auto) 82.5 % Lymph % (Auto) 8.8 % Tate % (Auto) 8.3 % Eos % (Auto) 0.0 % Baso % (Auto) 0.1 % Immature Gran # (Auto) 0.04 H (0.00-0.02) K/uL Neut # (Auto) 11.48 H (1.4-6.5) K/uL Lymph # (Auto) 1.22 (1.2-3.4) K/uL Tate # (Auto) 1.16 H (0.11-0.59) K/uL Eos # (Auto) 0.00 (0-0.5) K/uL Baso # (Auto) 0.02 (0-0.2) K/uL PT 11.2 (9.0-12.0) Seconds INR 1.1 (0.9-1.1) Sodium 149 H (136-145) mmol/L Potassium 4.5 (3.5-5.1) mmol/L Chloride 111 H (98-107) mmol/L Carbon Dioxide 28 (21-32) mmol/L Anion Gap 10.0 (3-11) BUN 47 H (7-18) mg/dl Creatinine 1.16 (0.6-1.2) mg/dl Est Cr Clr Drug Dosing Not Reportable Est GFR ( Amer) 50.4 Est GFR (Non-Af Amer) 43.5 BUN/Creatinine Ratio 40.1 H (10-20) Glucose 127 H (70-99) mg/dl Calcium 10.3 H (8.5-10.1) mg/dl Total Bilirubin 1.1 H (0.2-1) mg/dl AST 26 (15-37) U/L ALT 24 (12-78) U/L Alkaline Phosphatase 74 (45-117) U/L Total Creatine Kinase 366 H (26-192) U/L Troponin I 0.072 H* (0-0.045) ng/ml Total Protein 7.4 (6.4-8.2) gm/dl Albumin 3.9 (3.4-5.0) gm/dl Globulin 3.5 (2.5-4.0) gm/dl Albumin/Globulin Ratio 1.1 (0.9-2) Urine Color Urine Appearance (Clear) Urine pH (4.5-7.5) Ur Specific [place] (1.000-1.030) Urine Protein (Negative) Urine Glucose (UA) (Negative) Urine Ketones (Negative) Urine Blood (Negative) Urine Nitrite (Negative) Urine Bilirubin (Negative) Urine Urobilinogen (Negative) Ur Leukocyte Esterase (Negative) Urine WBC (Auto) (0-5) /hpf Urine RBC (Auto) (0-4) /hpf U Hyaline Cast (Auto) (0-5) /lpf U Epithel Cells (Auto) (0-5) /lpf Urine Bacteria (Auto) (Negative) Triple Phos Crystals (None Prsent) Urine Yeast Digoxin (0.8-2.0) ng/ml 10/18/18 10/18/18 Range/Units 17:28 19:45 WBC (4.8-10.8) K/uL RBC (4.2-5.4) M/uL Hgb (12.0-16.0) g/dL Hct (37-47) % MCV (80-100) fL MCH (25-34) pg MCHC (32-36) g/dL RDW Std Deviation (36.4-46.3) fL RDW Coeff of Renee (11.5-14.5) % Plt Count (130-400) K/uL MPV (7.4-10.4) fL Immature Gran % (Auto) % Neut % (Auto) % Lymph % (Auto) % Tate % (Auto) % Eos % (Auto) % Baso % (Auto) % Immature Gran # (Auto) (0.00-0.02) K/uL Neut # (Auto) (1.4-6.5) K/uL Lymph # (Auto) (1.2-3.4) K/uL Tate # (Auto) (0.11-0.59) K/uL Eos # (Auto) (0-0.5) K/uL Baso # (Auto) (0-0.2) K/uL PT (9.0-12.0) Seconds INR (0.9-1.1) Sodium (136-145) mmol/L Potassium (3.5-5.1) mmol/L Chloride (98-107) mmol/L Carbon Dioxide (21-32) mmol/L Anion Gap (3-11) BUN (7-18) mg/dl Creatinine (0.6-1.2) mg/dl Est Cr Clr Drug Dosing Est GFR ( Amer) Est GFR (Non-Af Amer) BUN/Creatinine Ratio (10-20) Glucose (70-99) mg/dl Calcium (8.5-10.1) mg/dl Total Bilirubin (0.2-1) mg/dl AST (15-37) U/L ALT (12-78) U/L Alkaline Phosphatase (45-117) U/L Total Creatine Kinase (26-192) U/L Troponin I (0-0.045) ng/ml Total Protein (6.4-8.2) gm/dl Albumin (3.4-5.0) gm/dl Globulin (2.5-4.0) gm/dl Albumin/Globulin Ratio (0.9-2) Urine Color Dark Yellow Urine Appearance Cloudy A (Clear) Urine pH 8.5 H (4.5-7.5) Ur Specific [place] 1.018 (1.000-1.030) Urine Protein Negative (Negative) Urine Glucose (UA) Negative (Negative) Urine Ketones Negative (Negative) Urine Blood Negative (Negative) Urine Nitrite Negative (Negative) Urine Bilirubin Negative (Negative) Urine Urobilinogen Negative (Negative) Ur Leukocyte Esterase 2+ H (Negative) Urine WBC (Auto) >30 H (0-5) /hpf Urine RBC (Auto) 0-4 (0-4) /hpf U Hyaline Cast (Auto) 1-5 (0-5) /lpf U Epithel Cells (Auto) 0-5 (0-5) /lpf Urine Bacteria (Auto) 1+ H (Negative) Triple Phos Crystals Present A (None Prsent) Urine Yeast Not Reportable Digoxin 1.5 (0.8-2.0) ng/ml Imaging Data Radiologist's Impression: Radiology results as stated below per my review and the radiologist's interpretation: CT cervical spine wo con CLINICAL HISTORY: 82 years-old Female presenting with fall today. TECHNIQUE: Multidetector CT of the cervical spine was performed without the use of intravenous contrast. IV contrast: None. One or more dose lowering techniques were used consistent with the principles of ALARA (as low as reasonably achievable), including automatic exposure control, mA or kV adjustment to individual patient size, and/or use of iterative reconstruction. COMPARISON: 10/10/2018. CT DOSE (mGy.cm): The estimated cumulative dose is 850.6. FINDINGS: County Director topogram: Unremarkable. Normal cervical lordosis. Osteopenia. Vertebral body heights maintained. Trace anterolisthesis of C3 on C4 and C4 on C5 as well as C6 on C7. Moderate intervertebral disc height loss at C5-6. Disc osteophyte complex at C5-6 without significant posterior bony spurring. Allowing for the limited sensitivity of CT, no evidence of soft tissue effacement of the spinal canal. No acute fracture or subluxation. Mild diffuse facet arthropathy. Multilevel osseous neural foraminal narrowing largely results from facet arthropathy and mild uncovertebral hypertrophy. Lung apices clear. Atherosclerosis. Paraspinal soft tissues within normal limits. IMPRESSION: 1. No acute osseous injury of the cervical spine. 2. Mild multilevel degenerative changes. 3. Osteopenia. Electronically signed by: Leonel Espinal M.D. 10/18/2018 5:[address] OF THE HEAD WITHOUT CONTRAST CLINICAL HISTORY: Fall. COMPARISON STUDY: Head CT October 10, 2018. CT DOSE: 850.60 mGy.cm TECHNIQUE: Helical axial images of the head were obtained without IV contrast. Automated exposure control was utilized for the study. A dose lowering technique was utilized adhering to the principles of ALARA. FINDINGS: No acute intracranial hemorrhage, midline shift or mass effect is present. Ventricular system is stable. Cavum septum pellucidum is incidentally noted. The basilar cisterns are patent. There are no extra axial collections. There is been expected evolution of the right occipital lobe infarct since head CT of October 10, 2018. White matter hypodensity suggests small vessel disease. There are no findings to suggest acute dural sinus thrombosis or acute territorial infarct. There is an old lacunar infarct within left thalamus. There is no calvarial fracture. IMPRESSION: 1. No acute intracranial findings. 2. No calvarial fracture. 3. Expected evolution of the right occipital lobe infarct since head CT of October 10, 2018. Electronically signed by: Jhoan Nesbitt M.D. 10/18/2018 5:54 PM XR chest 1V portable CLINICAL HISTORY: 82 years-old Female presenting with fall. TECHNIQUE: Portable supine AP view of the chest was obtained. COMPARISON: 10/10/2018. FINDINGS: Atherosclerosis of the aortic arch. Cardiac silhouette enlarged. Coronary artery stents in place. No focal opacity. No large effusion or pneumothorax. Osteopenia. IMPRESSION: 1. Cardiomegaly with multiple coronary artery stents. No other convincing evidence of acute cardiopulmonary disease. Electronically signed by: Leonel Espinal M.D. 10/18/2018 5:22 PM XR femur RT 2V routine CLINICAL HISTORY: 82 years-old Female presenting with r leg pain. TECHNIQUE: Frontal and lateral views of the right femur were obtained. COMPARISON: None. FINDINGS: Right hip joint congruent though there is an intertrochanteric fracture of the right femur. Significant varus angulation. Proximal displacement of the distal fracture fragment. Underlying osteopenia. Visualized portion of bony pelvis intact. Atherosclerotic calcifications noted. Right knee joint congruent. IMPRESSION: Intertrochanteric right femur fracture with significant angulation and proximal displacement. Electronically signed by: Leonel Espinal M.D. 10/18/2018 5:25 PM XR hip RT 2-3V w pelvis CLINICAL HISTORY: 82 years-old Female presenting with r hip pain. TECHNIQUE: Single frontal view the pelvis and frontal and lateral views of the right hip were obtained. COMPARISON: 10/10/2018. FINDINGS: Interval development of an intertrochanteric fracture of the right femur. Significant varus angulation. Proximal displacement of the distal fracture fragment. The femoral head remains congruent in the acetabulum. Few surrounding fracture fragments noted. Atherosclerosis with possible disruption of atherosclerotic calcifications in the region of the right femoral vessels. Underlying osteopenia. Bony pelvis intact. Left hip joint congruent as is the pubic symphysis and sacral iliac joints. Moderate stool ball in the rectum. Lower lumbar spine normal. IMPRESSION: 1. Displaced and angulated intertrochanteric right femur fracture. 2. Findings suspicious for disruption of the right femoral vessels given disrupted atherosclerotic calcifications. 3. No acute osseous injury of the pelvis. 4. Moderate stool burden in the rectum. 5. Osteopenia. Electronically signed by: Leonel Espinal M.D. 10/18/2018 5:21 PM ECG Data Attestation: I personally reviewed and interpreted this ECG as follows: Indication: other (fall) Rate (beats per minute): 91 Rhythm: atrial fibrillation Findings: + LBBB, + nonspecific-ST abn (lateral leads), + PVC and + left axis deviation Blood Pressure Blood Pressure Findings: Elevated blood pressure Blood Pressure Disposition: elevated BP felt to be situational MDM Narrative Patient is an 82-year-old female who presents the ER following a mechanical fall. She had a stroke close to 2 weeks ago and since then has been having trouble walking has been restricted to wheelchair. She been getting up on her own. She fell and broke her hip. She was referred in. IV was established blood work was obtained and showed a mild leukocytosis of 13,000. No significant anemia. Hypernatremia 148. LFTs was unremarkable. Troponin was slightly elevated at 0.07. Patient unable to complain of any chest pain or shortness of breath. UA was eventually obtained which showed a UTI and this was obtained after admission. Digoxin was unremarkable. X-rays of the hip and pelvis show right hip fracture. CTA was performed due to question which showed no disruption of the femoral artery. Discussed with the patient family who would likely prefer surgery. Discussed with orthopedics. Discussed with hospice. Patient will be admitted for further work-up. EKG was nondiagnostic. Impression & Plan Fall, Fracture of right hip, Elevated troponin Discharge Plan Visit Data *Final* Discharge Date/Time: 10/18/18 20:43 Chief Complaint: Fall Stated Complaint: fall/ R hip fx ED Provider: Jonel Hall Discharge Problem: Fall, Fracture of right hip, Elevated troponin Patient Disposition: Admitted As Inpatient Discharge Instructions Interventions: ED Discharge Assessment Last Done: 10/18/18 20:43 Discharge Problem: Fall Qualifiers: Encounter type: initial encounter Qualified Code(s): W19.XXXA - Unspecified fall, initial encounter Fracture of right hip Qualifiers: Encounter type: initial encounter Fracture type: closed Qualified Code(s): S72.001A - Fracture of unspecified part of neck of right femur, initial encounter for closed fracture The scribe's documentation has been prepared under my direction and personally reviewed by me in its entirety. I confirm that the note above accurately reflects all work, treatment, procedures, and medical decision making performed by me.
[2018-10-18] MEDS ORDERED: DIGOXIN 125 MCG in SYRINGE 9.5 ML IV STA (23:52)
[2018-10-19] MEDS: DOCUSATE SODIUM/SENNA 50/8.6MG TAB PO SCH ×2 (00:10→21:42)
[2018-10-19] MEDS: DIGOXIN 0.125 MG TAB PO SCH (00:10)
[2018-10-19 01:17] LABS: Hematocrit (blood only) 41.7 % (37-47); Hemoglobin 14.1 g/dL (12.0-16.0); Mean Corpuscular Hgb Conc 33.8 g/dL (32-36); Mean Corpuscular Volume 93.3 fL (80-100); Mean Platelet Volume 11.2 fL (7.4-10.4); Platelet Count 261 K/uL (130-400); RDW Standard Deviation 47.5 fL (36.4-46.3); Red Blood Count 4.47 M/uL (4.2-5.4); White Blood Count 11.54 K/uL (4.8-10.8)
[2018-10-19 01:34] LABS: BUN Creatinine Ratio 37.8 (10-20); Creatinine Clr Calc Pharmacy 25.9 ml/min; Est GFR (African American) 49.4; Est GFR (Non-African American) 42.6; Magnesium 2.6 mg/dl (1.8-2.4); Potassium 4.5 mmol/L (3.5-5.1)
[2018-10-19 01:44] LABS: Troponin I 0.074 ng/ml (0-0.045)
[2018-10-19] MEDS ORDERED: CEFAZOLIN 2000MG 2,000 MG/15 ML SYR IV SCH (06:00)
[2018-10-19] MEDS ORDERED: LEVOTHYROXINE SODIUM 50 MCG TABLET PO SCH (06:30)
[2018-10-19 07:34] LABS: Basophils # (auto) 0.02 K/uL (0-0.2); Basophils % (auto) 0.2 %; Eosinophils # (auto) 0.02 K/uL (0-0.5); Eosinophils % (auto) 0.2 %; Hematocrit (blood only) 41.7 % (37-47); Hemoglobin 14.2 g/dL (12.0-16.0); Immature Granulocytes # (auto) 0.04 K/uL (0.00-0.02); Immature Granulocytes % (auto) 0.3 %; Lymphocytes # (auto) 1.28 K/uL (1.2-3.4); Lymphocytes % (auto) 9.7 %; Mean Corpuscular Hgb Conc 34.1 g/dL (32-36); Mean Corpuscular Volume 93.9 fL (80-100); Monocytes # (auto) 1.22 K/uL (0.11-0.59); Monocytes % (auto) 9.2 %; Neutrophils # (auto) 10.65 K/uL (1.4-6.5); Neutrophils % (auto) 80.4 %; Platelet Count 258 K/uL (130-400); RDW Standard Deviation 47.9 fL (36.4-46.3); Red Blood Count 4.44 M/uL (4.2-5.4); White Blood Count 13.23 K/uL (4.8-10.8)
[2018-10-19] MEDS ORDERED: METOPROLOL TARTRATE 1 MG/ML VIAL IV PRN (07:39)
--- NOTE | 2018-10-19 07:42 | Hospitalist Progress Note ---
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 who presents to [facility] after sustaining fall and complaining of right hip pain and found to have acute displaced comminuted intertrochanteric fracture of the right femur acute displaced comminuted intertrochanteric fracture of the right femur -patient has cardiac risk factors which was calculated by admitting hospitalist team to be 10.1% as per Revised cardiac risk index -patient has history of stroke with reported left sided neglect, and also dementia; this may preclude post op recovery -have discussed Daughter YOON Hanson, [phone] about risks of surgery and possible post-op complications but patient's daughter would like cardiac pre-op risk evalution and orthopedic evaluation before deciding whether to proceed to surgery or not History of right occipital lobe stroke -was evaluated for stroke on recent 10/10/18 admission -this admission Head CT 10/18/18 1. No acute intracranial findings. 2. No calvarial fracture. 3. Expected evolution of the right occipital lobe infarct since head CT of October 10, 2018. (4) UTI (urinary tract infection): -admission wbc 13k, urine + leukoesterase and bacturia -Probable urinary tract infection will treat empirically with 1 g Rocephin until culture return (5) LILLIAN (acute kidney injury): -baseline cr 0.7-0.8 -BUN/creatinine 47 and 1.16 on admission -Hold Lasix and lisinopril -continue IVF D5 half NS at 60/hr -trend renal function Hypernatremia -serum sodium on admission 149 -downtrended to 146 with IV fluids (6) Constipation: -admission pelvic x-ray moderate stool burden in the rectum -suppository x1 was ordered by admitting team -oral bowel regimen medications when patient able to take oral medications (7) Cardiomyopathy: -History stents x4 with known ischemic cardiomyopathy -Echo done 10/2018 revealed EF 20 to 25%, left and right atrium severely dilated, severe MR, hypokinesis (8) CAD (coronary artery disease): -History stents x4 with known ischemic cardiomyopathy -Echo done 10/2018 revealed EF 20 to 25%, left and right atrium severely dilated, severe MR, hypokinesis -troponin elevated 0.072, ecg w/o acute ST changes - second troponin stable 0.074, third troponin 0.053 -possibly troponin elevations from demand ischemia -hold Lasix and lisinopril for now while monitoring renal function for acute kidney injury -will give statin when patient ready to take oral medications -will hold off aspirin for now until disposition by orthopedics (9) Atrial fibrillation: -patient's atrial fibrillation is rate controlled -at home patient is on metoprolol succinate 100 mg BID and digoxin 125 mcg daily -digoxin level 1.5 -at this time of exam at AM of 10/19/18, patient unlikely going to be able to take morning medications and will have metoprolol as 5 mg q4 hour prn if heart rate above 110 bpm Rate and rhythm controlled on metoprolol and digoxin Digoxin level 1.5 (10) Hypothyroid: will hold off home dose levothyroxine 50 mcg daily today tentatively schedule levothyroxine as 25 mcg daily IV starting tomorrow (11) DVT prophylaxis: off SCDs or medical VTE for now until orthopedic assessment Follow up: Dr. Plata at [facility] Daughter KYLE Hanson contact number is [phone] Subjective Patient seen and examined at bedside. She is sleeping. when examined patient gives good resistance with the hands. pupils equal and reactive to light. she is difficult to arouse. she did not speak to medical doctor. As per nurse, patient did have pain medications. patient on nasal cannula oxygen. breathing is not labored. heart rate is controlled. review of telemetry that patient is in atrial fibrillation. Physical Exam Constitutional: + lethargic Eyes: PERRL, conjunctivae normal, anicteric sclerae Neck: normal visual inspection Respiratory: normal respiratory effort, lungs clear to auscultation Cardiovascular: Rate/Rhythm: regular rate and + irregularly irregular Gastrointestinal (Abdomen): normal bowel sounds, soft, nontender, no hepatosplenomegaly Musculoskeletal: right leg in a contracted position. legs are warm bilaterally Results & Data Vital Signs (Past 12 Hours) Vital Signs Temp Pulse Pulse Resp BP BP Pulse Ox 10/19/18 07:04 35.7 C L 79 18 129/68 97 10/19/18 03:27 36.3 C L 94 H 20 144/78 H 94 10/18/18 23:26 36.8 C 75 18 119/80 100 10/18/18 20:43 67 18 122/85 98 10/18/18 20:35 67 18 122/85 98 (1) Atrial fibrillation Atrial fibrillation type: unspecified Qualified Code(s): I48.91 - Unspecified atrial fibrillation (2) Fracture of right hip Encounter type: initial encounter Fracture type: closed Qualified Code(s): S72.001A - Fracture of unspecified part of neck of right femur, initial encounter for closed fracture (3) Fall Encounter type: initial encounter Qualified Code(s): W19.XXXA - Unspecified fall, initial encounter
[2018-10-19 07:53] LABS: Albumin Level 3.1 gm/dl (3.4-5.0); BUN Creatinine Ratio 39.2 (10-20); Creatinine Clr Calc Pharmacy 26.3 ml/min; Est GFR (African American) 56.2; Est GFR (Non-African American) 48.5; Potassium 4.2 mmol/L (3.5-5.1)
[2018-10-19 08:00] LABS: Bilirubin,Total 0.6 mg/dl (0.2-1); Globulin 3.2 gm/dl (2.5-4.0); Total Protein 6.3 gm/dl (6.4-8.2); Troponin I 0.053 ng/ml (0-0.045)
[2018-10-19] MEDS ORDERED: METOPROLOL SUCC 50MG EXT REL TAB PO SCH (08:00)
--- NOTE | 2018-10-19 08:23 | Anesthesiology Consultation ---
Date of Service October 19, 2018 Assessment & Plan (1) Encounter for pre-operative examination: Chart Review Chart Review: Acceptable Risk for Surgery (Patient obviously high risk for surgery considering very recent stroke and cardiovascular disease, but not likely anything that can be done prior to hip fracture surgery that will improve her risk. Await determination from surgeon and POA as to whether to proceed.) History Surgery Operation Date: 10/19/18 07:30 Proposed Procedures p Right Trochanteric Nail - Leonel Pedro MD Height/Weight Height: 5 ft Weight: 41.4 kg Allergies Allergy/AdvReac Type Severity Reaction Status Date / Time levofloxacin Allergy Unknown Unverified 10/18/18 17:44 Quinolones Allergy Unknown Unverified 10/18/18 17:44 Medications Home Medications Medication Instructions Recorded Confirmed Last Taken Mucinex DM 1 tab PO Q12H PRN 08/10/18 10/18/18 Unknown acetaminophen [Tylenol] 650 mg PO Q4H PRN 08/10/18 10/18/18 10/18/18 04:30 aspirin [Aspir-81] 81 mg PO QAM 08/10/18 10/18/18 10/18/18 09:00 digoxin 125 mcg PO QPM 08/10/18 10/18/18 10/17/18 18:00 docusate sodium [Colace] 100 mg PO QAM 08/10/18 10/18/18 10/18/18 09:00 furosemide 20 mg PO QAM 08/10/18 10/18/18 10/18/18 09:00 levothyroxine 50 mcg PO QAM 08/10/18 10/18/18 10/18/18 05:30 melatonin 5 mg PO HS 08/10/18 10/18/18 10/17/18 20:00 metoprolol succinate [Toprol XL] 100 mg PO BIDM 08/10/18 10/18/18 10/18/18 08:00 pantoprazole 40 mg PO QAM 08/10/18 10/18/18 10/18/18 06:00 polyethylene glycol 3350 [Miralax] 17 g PO DAILY PRN 08/10/18 10/18/18 10/16/18 09:12 potassium chloride 10 meq PO QAM 08/10/18 10/18/18 10/18/18 09:00 pravastatin 20 mg PO 08/10/18 10/18/18 10/17/18 20:00 sennosides-docusate sodium 2 tab PO HS 08/10/18 10/18/18 10/17/18 21:00 [Senna-S] lisinopril 5 mg PO QAM 10/18/18 10/18/18 10/18/18 09:00 Active Medications Generic Name Dose Route Start Last Admin Trade Name Satya PRN Reason Stop Dose Admin Digoxin 0.125 mg 10/18/18 22:00 10/19/18 00:10 Lanoxin PO 11/17/18 21:59 Not Given QPM INDIO Dextrose/Sodium Chloride 1,000 mls @ 60 mls/hr 10/18/18 20:02 10/18/18 22:34 D5w And 1/2nss IV 11/17/18 20:01 60 mls/hr .[id number] INDIO Administration Ceftriaxone Sodium 1,000 mg/ 50 mls @ 100 mls/hr 10/18/18 22:00 10/18/18 23:16 Dextrose IV 10/23/18 21:59 Infused Q24H INDIO Infusion Protocol Senna/Docusate Sodium 2 tab 10/18/18 22:00 10/19/18 00:10 Senokot S PO 11/17/18 21:59 Not Given HS INDIO Past Medical History Medical History CAD (coronary artery disease) (Chronic) Dementia (Chronic) Atrial fibrillation (Chronic) Hyperlipidemia (Chronic) Cardiomyopathy (Chronic) EF 20-25% Hypothyroid (Chronic) CVA (cerebral vascular accident) 1-2 weeks ago Past Family History Family History Other Family history unobtainable Past Surgical History Surgical History History of cardiac cath (Chronic) Stents x 4 Social History Smoking Status: Never smoker Do You Dip or Chew Tobacco: No Hx Alcohol Use: No Hx Substance Use: No Physical Exam Vital Signs Last Vital Signs Temp 35.7 C L 10/19/18 07:04 Pulse 79 10/19/18 07:04 Resp 18 10/19/18 07:04 BP 129/68 10/19/18 07:04 Pulse Ox 97 06/15/19 07:04 Testing Laboratory Results 10/19/18 07:24 10/19/18 07:15 10/18/18 10/18/18 10/18/18 17:27 19:45 22:25 PT 11.2 INR 1.1 Urine Color Dark Yellow Urine Appearance Cloudy A Urine pH 8.5 H Ur Specific [place] 1.018 Urine Protein Negative Urine Glucose (UA) Negative Urine Ketones Negative Urine Nitrite Negative Ur Leukocyte Esterase 2+ H Urine WBC (Auto) >30 H Urine RBC (Auto) 0-4 U Hyaline Cast (Auto) 1-5 U Epithel Cells (Auto) 0-5 Urine Bacteria (Auto) 1+ H Blood Type A Positive Antibody Screen NEGATIVE Electrocardiogram Date: 10/18/18 Findings: + AFIB @ (91 PVC's, old infarct) Chest X-Ray Date: 10/18/18 Findings: + cardiomegaly (no acute disease) Echocardiogram Date: 10/11/18 EF: 20-25% LV Function: dysfunctional Other Findings: + atrial enlargement Valvular Disease: + MR (severe) Cervical Spine Date: 10/18/18 No acute injury Other Testing Head CT - prior evolving infarct seen, no acute issues from fall
--- NOTE | 2018-10-19 08:42 | Cardiology Consultation ---
Date of Consultation October 19, 2018 Assessment & Plan (1) Preop cardiovascular exam: Patient is considered high risk from a cardiovascular perspective due to recent CVA, underlying ischemic cardia myopathy, chronic atrial fibrillation, and severe mitral regurgitation. She appears compensated from heart failure perspective. I will adjust doses of metoprolol and digoxin as noted below. No further cardiac testing or intervention would lower patient's perioperative risk at this time. (2) Chronic atrial fibrillation: Periods of slow ventricular response and intermittent 2.0 to 2.5-second pauses recorded overnight. Recommend reducing Toprol-XL to 150 mg daily. A.m. dose of Toprol-XL will be held at this time will plan on giving patient 50 mg this evening pending review of telemetry. Digoxin will be placed on hold. Will likely reduce the frequency of digoxin dosing to 2 to 3 days/week pending clinical course. Patient is not a long-term anticoagulation candidate. (3) Cerebrovascular accident (CVA) involving posterior circulation: Continue aspirin and statin therapy. (4) Chronic combined systolic and diastolic CHF (congestive heart failure): Patient appears compensated to borderline volume depleted. Continue current medications including furosemide 20 mg daily and potassium supplementation. Repeat basic metabolic panel daily. (5) Elevated troponin I level: Minimal troponin elevation likely represents type II event, demand ischemia, in the setting of acute fall, underlying CAD, chronic systolic heart failure, ischemic cardiomyopathy, chronic severe mitral regurgitation, renal insufficiency, and atrial fibrillation. (6) Severe mitral regurgitation: (7) CAD (coronary artery disease): ECG demonstrates rate controlled atrial fibrillation without ischemic ST changes. Minimal troponin elevation as noted above. History of Present Illness Reason for Consultation: Preoperative cardiovascular evaluation, atrial fibrillation, CAD, ischemic cardiomyopathy Requesting Physician: Dr. Vahid Morataya Attending Physician: Elgin Khalil MD History of Present Illness 82-year-old female admitted secondary to fall and right comminuted femoral fracture. Patient admitted to hospital last week secondary to acute right occipital CVA. Presumed embolic origin due to history of chronic atrial fibrillation. Patient is not anticoagulated due to fall risk and severe underlying dementia. Patient received morphine this a.m. She is sedated and r esponds to verbal stimuli however unable to offer meaningful history. History obtained from hospital records and nursing staff. Telemetry reviewed demonstrating atrial fibrillation with slow ventricular response overnight and intermittent 2.0 2.5-second pauses. Mildly elevated troponin noted on admission. Patient is a resident of [facility]. Carries history of chronic atrial fibrillation, coronary disease status post coronary artery stenting x4, ischemic cardia myopathy with chronic systolic heart failure, mesenteric stenting, dyslipidemia, and severe dementia. I previously evaluated the patient in 2017 due to atrial fibrillation. At that time metoprolol was titrated to 75 mg twice daily. She was taking digoxin 125 mcg twice weekly at that time. Currently Toprol dose is 100 mg twice daily and digoxin is 125 mcg daily. ECG reviewed demonstrating atrial fibrillation, PVCs versus aberrantly conducted complexes, no ischemic changes. Recent resting 2D transthoracic echocardiogram performed approximately 1 week ago demonstrates a severe ischemic cardia myopathy with ejection fraction of 20 to 25% and severe mitral regurgitation. Per discussion with nursing, family is considering surgery versus comfort measures. Allergies Allergy/AdvReac Type Severity Reaction Status Date / Time levofloxacin Allergy Unknown Unverified 10/18/18 17:44 Quinolones Allergy Unknown Unverified 10/18/18 17:44 Home Medications Home Medications Medication Instructions Recorded Confirmed Type Mucinex DM 1 tab PO Q12H PRN 08/10/18 10/18/18 History acetaminophen [Tylenol] 650 mg PO Q4H PRN 08/10/18 10/18/18 History aspirin [Aspir-81] 81 mg PO QAM 08/10/18 10/18/18 History digoxin 125 mcg PO QPM 08/10/18 10/18/18 History docusate sodium [Colace] 100 mg PO QAM 08/10/18 10/18/18 History furosemide 20 mg PO QAM 08/10/18 10/18/18 History levothyroxine 50 mcg PO QAM 08/10/18 10/18/18 History melatonin 5 mg PO HS 08/10/18 10/18/18 History metoprolol succinate [Toprol XL] 100 mg PO BIDM 08/10/18 10/18/18 History pantoprazole 40 mg PO QAM 08/10/18 10/18/18 History polyethylene glycol 3350 [Miralax] 17 g PO DAILY PRN 08/10/18 10/18/18 History potassium chloride 10 meq PO QAM 08/10/18 10/18/18 History pravastatin 20 mg PO HS 08/10/18 10/18/18 History sennosides-docusate sodium 2 tab PO HS 08/10/18 10/18/18 History [Senna-S] lisinopril 5 mg PO QAM 10/18/18 10/18/18 History Patient History Medical History CAD (coronary artery disease) (Chronic) Dementia (Chronic) Atrial fibrillation (Chronic) Hyperlipidemia (Chronic) Cardiomyopathy (Chronic) EF 20-25% Hypothyroid (Chronic) CVA (cerebral vascular accident) 1-2 weeks ago Severe mitral regurgitation by prior echocardiogram Surgical History History of cardiac cath (Chronic) Stents x 4 Family History Other Family history unobtainable Social History Preferred Language: [place] Communication Ability: Impaired Communication Ability Comment: h/o CVA, non-verbal at this time Lead Electrical Engineer Required: No Beliefs That Will Affect Care: Judaism Judaism Beliefs: Mormon of the [facility] marital status: Current Living Situation: Shelter Current Living Situation Comment: [facility] since d/c after CVA (was @ [facility] memory care unit) current occupational status: retired Feels Safe at Home: Yes Safety Concerns: Feels Safe At This Time Smoking Status: Never smoker Do You Dip or Chew Tobacco: No Hx Alcohol Use: No Hx Substance Use: No Review of Systems Review of Systems: Unobtainable due to cognitive status Physical Exam Physical Exam: General: NAD, sedated, chronically ill. HEENT: Mucous membranes dry .normocephalic. Atraumatic. Conjunctiva pink, no scleral icterus. Neck: No carotid bruits, the carotid upstrokes are brisk. No JVD. No HJR Heart: Irregular rhythm, normal S1 and S2. 1/6 to 2/6 midsystolic murmur heard best at the left ventricular apex. no RV heave. Lungs: Poor effort, patient uncooperative, no rales, rhonchi, or wheeze appreciated anteriorly.Abdomen: Normal bowel sounds. Soft. Nontender. No masses or organomegaly. No abdominal bruits. Extremities: No clubbing, cyanosis, or edema. Pulses: radial=2/4, posterior tibial=2/4. Neuro: No facial asymmetry. Patient moves all extremities. Uncooperative due to sedation. Results & Data Vital Signs (Past 12 Hours) Vital Signs Temp Pulse Pulse Resp BP BP Pulse Ox 10/19/18 07:04 35.7 C L 79 18 129/68 97 10/19/18 03:27 36.3 C L 94 H 20 144/78 H 94 10/18/18 23:26 36.8 C 75 18 119/80 100 10/18/18 20:43 67 18 122/85 98 Laboratory Results Laboratory Results - last 24 hr 10/18/18 10/18/18 10/18/18 17:27 17:27 17:27 WBC 13.92 H RBC 4.87 Hgb 15.4 Hct 44.9 MCV 92.2 MCH 31.6 MCHC 34.3 RDW Std Deviation 46.4 H RDW Coeff of Renee 13.7 Plt Count 297 MPV 11.2 H Immature Gran % (Auto) 0.3 Neut % (Auto) 82.5 Lymph % (Auto) 8.8 [place] % (Auto) 8.3 Eos % (Auto) 0.0 Baso % (Auto) 0.1 Immature Gran # (Auto) 0.04 H Neut # (Auto) 11.48 H Lymph # (Auto) 1.22 [place] # (Auto) 1.16 H Eos # (Auto) 0.00 Baso # (Auto) 0.02 PT 11.2 INR 1.1 Sodium 149 H Potassium 4.5 Chloride 111 H Carbon Dioxide 28 Anion Gap 10.0 BUN 47 H Creatinine 1.16 Est Cr Clr Drug Dosing Not Reportable Est GFR ( Amer) 50.4 Est GFR (Non-Af Amer) 43.5 BUN/Creatinine Ratio 40.1 H Glucose 127 H Calcium 10.3 H Magnesium Total Bilirubin 1.1 H AST 26 ALT 24 Alkaline Phosphatase 74 Total Creatine Kinase 366 H Troponin I 0.072 H* Total Protein 7.4 Albumin 3.9 Globulin 3.5 Albumin/Globulin Ratio 1.1 Urine Color Urine Appearance Urine pH Ur Specific [place] Urine Protein Urine Glucose (UA) Urine Ketones Urine Blood Urine Nitrite Urine Bilirubin Urine Urobilinogen Ur Leukocyte Esterase Urine WBC (Auto) Urine RBC (Auto) U Hyaline Cast (Auto) U Epithel Cells (Auto) Urine Bacteria (Auto) Triple Phos Crystals Urine Yeast Nasal Screen MRSA (PCR) Digoxin Blood Type Antibody Screen 06/10/18/18 10/18/18 17:28 19:45 22:15 WBC RBC Hgb Hct MCV MCH MCHC RDW Std Deviation RDW Coeff of Renee Plt Count MPV Immature Gran % (Auto) Neut % (Auto) Lymph % (Auto) [place] % (Auto) Eos % (Auto) Baso % (Auto) Immature Gran # (Auto) Neut # (Auto) Lymph # (Auto) [place] # (Auto) Eos # (Auto) Baso # (Auto) PT INR Sodium Potassium Chloride Carbon Dioxide Anion Gap BUN Creatinine Est Cr Clr Drug Dosing Est GFR ( Amer) Est GFR (Non-Af Amer) BUN/Creatinine Ratio Glucose Calcium Magnesium Total Bilirubin AST ALT Alkaline Phosphatase Total Creatine Kinase Troponin I Total Protein Albumin Globulin Albumin/Globulin Ratio Urine Color Dark Yellow Urine Appearance Cloudy A Urine pH 8.5 H Ur Specific [place] 1.018 Urine Protein Negative Urine Glucose (UA) Negative Urine Ketones Negative Urine Blood Negative Urine Nitrite Negative Urine Bilirubin Negative Urine Urobilinogen Negative Ur Leukocyte Esterase 2+ H Urine WBC (Auto) >30 H Urine RBC (Auto) 0-4 U Hyaline Cast (Auto) 1-5 U Epithel Cells (Auto) 0-5 Urine Bacteria (Auto) 1+ H Triple Phos Crystals Present A Urine Yeast Not Reportable Nasal Screen MRSA (PCR) Negative Digoxin 1.5 Blood Type Antibody Screen 10/18/18 10/19/18 10/19/18 22:25 00:57 00:57 WBC 11.54 H RBC 4.47 Hgb 14.1 Hct 41.7 MCV 93.3 MCH 31.5 MCHC 33.8 RDW Std Deviation 47.5 H RDW Coeff of Renee 14.0 Plt Count 261 MPV 11.2 H Immature Gran % (Auto) Neut % (Auto) Lymph % (Auto) [place] % (Auto) Eos % (Auto) Baso % (Auto) Immature Gran # (Auto) Neut # (Auto) Lymph # (Auto) [place] # (Auto) Eos # (Auto) Baso # (Auto) PT INR Sodium 146 H Potassium 4.5 Chloride 112 H Carbon Dioxide 30 Anion Gap 4.0 BUN 45 H Creatinine 1.18 Est Cr Clr Drug Dosing 25.9 Est GFR ( Amer) 49.4 Est GFR (Non-Af Amer) 42.6 BUN/Creatinine Ratio 37.8 H Glucose 142 H Calcium 9.0 Magnesium 2.6 H Total Bilirubin AST ALT Alkaline Phosphatase Total Creatine Kinase Troponin I 0.074 H* Total Protein Albumin Globulin Albumin/Globulin Ratio Urine Color Urine Appearance Urine pH Ur Specific [place] Urine Protein Urine Glucose (UA) Urine Ketones Urine Blood Urine Nitrite Urine Bilirubin Urine Urobilinogen Ur Leukocyte Esterase Urine WBC (Auto) Urine RBC (Auto) U Hyaline Cast (Auto) U Epithel Cells (Auto) Urine Bacteria (Auto) Triple Phos Crystals Urine Yeast Nasal Screen MRSA (PCR) Digoxin Blood Type A Positive Antibody Screen NEGATIVE 10/19/18 10/19/18 07:15 07:24 WBC 13.23 H RBC 4.44 Hgb 14.2 Hct 41.7 MCV 93.9 MCH 32.0 MCHC 34.1 RDW Std Deviation 47.9 H RDW Coeff of Renee 14.0 Plt Count 258 MPV 11.0 H Immature Gran % (Auto) 0.3 Neut % (Auto) 80.4 Lymph % (Auto) 9.7 [place] % (Auto) 9.2 Eos % (Auto) 0.2 Baso % (Auto) 0.2 Immature Gran # (Auto) 0.04 H Neut # (Auto) 10.65 H Lymph # (Auto) 1.28 [place] # (Auto) 1.22 H Eos # (Auto) 0.02 Baso # (Auto) 0.02 PT INR Sodium 146 H Potassium 4.2 Chloride 112 H Carbon Dioxide 27 Anion Gap 7.0 BUN 42 H Creatinine 1.06 Est Cr Clr Drug Dosing 26.3 Est GFR ( Amer) 56.2 Est GFR (Non-Af Amer) 48.5 BUN/Creatinine Ratio 39.2 H Glucose 130 H Calcium 9.0 Magnesium Total Bilirubin 0.6 D AST 19 ALT 21 Alkaline Phosphatase 64 Total Creatine Kinase 202 H Troponin I 0.053 H* Total Protein 6.3 L Albumin 3.1 L Globulin 3.2 Albumin/Globulin Ratio 1.0 Urine Color Urine Appearance Urine pH Ur Specific [place] Urine Protein Urine Glucose (UA) Urine Ketones Urine Blood Urine Nitrite Urine Bilirubin Urine Urobilinogen Ur Leukocyte Esterase Urine WBC (Auto) Urine RBC (Auto) U Hyaline Cast (Auto) U Epithel Cells (Auto) Urine Bacteria (Auto) Triple Phos Crystals Urine Yeast Nasal Screen MRSA (PCR) Digoxin Blood Type Antibody Screen (1) CAD (coronary artery disease) Associated angina: angina presence unspecified Coronary Disease-Associated Artery/Lesion type: [place] artery [place] vs. transplanted heart: [place] heart Qualified Code(s): I25.10 - Atherosclerotic heart disease of [place] coronary artery without angina pectoris
[2018-10-19] MEDS ORDERED: ASPIRIN 81 MG ECTAB PO SCH (09:00)
--- NOTE | 2018-10-19 09:02 | Orthopedic Consultation ---
Date of Consultation October 19, 2018 Assessment & Plan (1) Fracture of right hip: Right intertrochanteric hip fracture I discussed the nature of the injury with the patient's daughter last night. She has been wanting to discuss the situation with her sisters as well as the kids cardiology is opinion as to her cardiac risk. She has been evaluated by cardiology's. High risk secondary to her recent stroke as well has her poor cardiac function. I discussed with the daughter last night the pros and cons of the surgery including pain relief as well as improvement immobilization versus the surgical risks. I have left a message with the daughter to try to again discuss the case but have not heard back yet. Once we have gotten a hold of the patient's POA we will make a final determination if we will proceed with the surgery or proceed with only comfort care. History of Present Illness Reason for Consultation: Right intertrochanteric fracture Attending Physician: Elgin Khalil MD History of Present Illness Patient is a 82-year-old female who about a week ago sustained a stroke. She was in house for several days and then transferred. She has had some us after the stroke. She has a history of dementia. Prior to the stroke she ambulated independently. She subsequently had a fall and now has a intertrochanteric fracture. She is demented response to verbal as well as physical stimulation but relatively noncommunicative. Allergies Allergy/AdvReac Type Severity Reaction Status Date / Time levofloxacin Allergy Unknown Unverified 10/18/18 17:44 Quinolones Allergy Unknown Unverified 10/18/18 17:44 Home Medications Home Medications Medication Instructions Recorded Confirmed Type Mucinex DM 1 tab PO Q12H PRN 08/10/18 10/18/18 History acetaminophen [Tylenol] 650 mg PO Q4H PRN 08/10/18 10/18/18 History aspirin [Aspir-81] 81 mg PO QAM 08/10/18 10/18/18 History digoxin 125 mcg PO QPM 08/10/18 10/18/18 History docusate sodium [Colace] 100 mg PO QAM 08/10/18 10/18/18 History furosemide 20 mg PO QAM 08/10/18 10/18/18 History levothyroxine 50 mcg PO QAM 08/10/18 10/18/18 History melatonin 5 mg PO HS 08/10/18 10/18/18 History metoprolol succinate [Toprol XL] 100 mg PO BIDM 08/10/18 10/18/18 History pantoprazole 40 mg PO QAM 08/10/18 10/18/18 History polyethylene glycol 3350 [Miralax] 17 g PO DAILY PRN 08/10/18 10/18/18 History potassium chloride 10 meq PO QAM 08/10/18 10/18/18 History pravastatin 20 mg PO HS 08/10/18 10/18/18 History sennosides-docusate sodium 2 tab PO HS 08/10/18 10/18/18 History [Senna-S] lisinopril 5 mg PO QAM 10/18/18 10/18/18 History Patient History Medical History CAD (coronary artery disease) (Chronic) Dementia (Chronic) Atrial fibrillation (Chronic) Hyperlipidemia (Chronic) Cardiomyopathy (Chronic) EF 20-25% Hypothyroid (Chronic) CVA (cerebral vascular accident) 1-2 weeks ago Severe mitral regurgitation by prior echocardiogram Surgical History History of cardiac cath (Chronic) Stents x 4 Family History Other Family history unobtainable Social History Preferred Language: Syriac Communication Ability: Impaired Communication Ability Comment: h/o CVA, non-verbal at this time Advertising Supervisor Required: No Beliefs That Will Affect Care: Cheondoism Cheondoism Beliefs: Jewish of the [facility] marital status: Current Living Situation: Long Term Current Living Situation Comment: [facility] since d/c after CVA (was @ [facility] memory care unit) current occupational status: retired Feels Safe at Home: Yes Safety Concerns: Feels Safe At This Time Smoking Status: Never smoker Do You Dip or Chew Tobacco: No Hx Alcohol Use: No Hx Substance Use: No Physical Exam Constitutional: Patient is somnolent but awakens to stimuli Eyes: PERRL, conjunctivae normal, anicteric sclerae Neck: trachea midline, no thyromegaly Respiratory: normal respiratory effort Cardiovascular: Extremities: normal capillary refill Musculoskeletal: Right lower extremity is shortened and externally rotated. She has pain with internal and external rotation hip. She appears to spontaneously move the leg but is not really following commands. The toes are warm pink cap refill less than 2 seconds Results & Data Vital Signs (Past 12 Hours) Vital Signs Temp Pulse Resp BP Pulse Ox 10/19/18 07:04 35.7 C L 79 18 129/68 97 10/19/18 03:27 36.3 C L 94 H 20 144/78 H 94 10/18/18 23:26 36.8 C 75 18 119/80 100 (1) Fracture of right hip Encounter type: initial encounter Fracture type: closed Qualified Code(s): S72.001A - Fracture of unspecified part of neck of right femur, initial encounter for closed fracture
[2018-10-19] MEDS: POTASSIUM CHLORIDE 10 MEQ TABCR PO SCH (09:07)
[2018-10-19] MEDS: PANTOprazole 40 MG TAB PO SCH (09:08)
--- NOTE | 2018-10-19 10:32 | Orthopedic Progress Note ---
Date of Service October 19, 2018 Assessment & Plan (1) Fracture of right hip: Right intertrochanteric hip fracture I discussed the nature of the injury with the patient's daughter. They have elected to not proceed with surgery. They have reviewed their mother is living well and it appears as though she would not want surgery and they will pursue comfort care measures. Physical Exam Eyes: PERRL, conjunctivae normal, anicteric sclerae Neck: trachea midline, no thyromegaly Respiratory: normal respiratory effort Cardiovascular: Extremities: normal capillary refill Results & Data Vital Signs (Past 12 Hours) Vital Signs Temp Pulse Resp BP Pulse Ox 10/19/18 07:04 35.7 C L 79 18 129/68 97 10/19/18 03:27 36.3 C L 94 H 20 144/78 H 94 10/18/18 23:26 36.8 C 75 18 119/80 100 (1) Fracture of right hip Encounter type: initial encounter Fracture type: closed Qualified Code(s): S72.001A - Fracture of unspecified part of neck of right femur, initial encounter for closed fracture
--- NOTE | 2018-10-19 13:54 | Hospitalist Progress Note ---
Date of Service October 19, 2018 Subjective update to progress note as written on 10/19/18: Discussed with patient's daughter Margie who expressed patient's medical decisions are to be made by her as the power of needle punch machine operator and that her sister Fadi is also medical decision maker in her place if she is not available. she affirmed that as per current hospital assessments of surgical risks and patient's living will that she would not pursue orthopedic surgery for the patient. she would like patient to be medically managed on telemetry monitoring for now and including IV medications such as Iv antibiotics and see if patient is more responsive in the next 24 hours. She allows for lab draws. She affirms that patient's code status is DNR/DNI Results & Data Vital Signs (Past 12 Hours) Vital Signs Temp Pulse Resp BP Pulse Ox 10/19/18 11:22 36.3 C L 62 20 121/67 100 10/19/18 07:04 35.7 C L 79 18 129/68 97 10/19/18 03:27 36.3 C L 94 H 20 144/78 H 94
[2018-10-19] MEDS: D5W AND 1/2NSS 1,000 ML IV SCH (15:31)
[2018-10-19] MEDS: MoRPHine SULFATE 2 MG/ML CARP IV PRN (19:44)
[2018-10-19] MEDS: METOPROLOL SUCC 50MG EXT REL TAB PO SCH (21:42)
[2018-10-19] MEDS: cefTRIAXone SODIUM 1,000 MG in DEXTROSE 5% 50 ML IV SCH (21:53)
[2018-10-20] MEDS: MoRPHine SULFATE 2 MG/ML CARP IV PRN ×3 (01:56→22:42)
[2018-10-20] MEDS: D5W AND 1/2NSS 1,000 ML IV SCH ×2 (05:54→22:42)
[2018-10-20 07:39] LABS: Basophils # (auto) 0.02 K/uL (0-0.2); Basophils % (auto) 0.2 %; Eosinophils # (auto) 0.04 K/uL (0-0.5); Eosinophils % (auto) 0.4 %; Hematocrit (blood only) 39.5 % (37-47); Hemoglobin 13.1 g/dL (12.0-16.0); Immature Granulocytes # (auto) 0.02 K/uL (0.00-0.02); Immature Granulocytes % (auto) 0.2 %; Lymphocytes % (auto) 9.4 %; Mean Corpuscular Volume 93.6 fL (80-100); Monocytes # (auto) 1.14 K/uL (0.11-0.59); Monocytes % (auto) 10.7 %; Neutrophils # (auto) 8.39 K/uL (1.4-6.5); Neutrophils % (auto) 79.1 %; Platelet Count 209 K/uL (130-400); RDW Coefficient of Variation 13.8 % (11.5-14.5); RDW Standard Deviation 47.3 fL (36.4-46.3); Red Blood Count 4.22 M/uL (4.2-5.4); White Blood Count 10.61 K/uL (4.8-10.8)
[2018-10-20 07:50] LABS: Mean Corpuscular Hgb Conc 33.2 g/dL (32-36)
[2018-10-20] MEDS: PANTOprazole 40 MG TAB PO SCH (08:02)
[2018-10-20] MEDS: POTASSIUM CHLORIDE 10 MEQ TABCR PO SCH (08:02)
[2018-10-20 08:18] LABS: Albumin Level 2.8 gm/dl (3.4-5.0); BUN Creatinine Ratio 39.2 (10-20); Calcium 8.6 mg/dl (8.5-10.1); Creatinine Clr Calc Pharmacy 37.4 ml/min; Est GFR (African American) 81.5; Est GFR (Non-African American) 70.3; Magnesium 2.4 mg/dl (1.8-2.4); Phosphorus 2.2 mg/dl (2.5-4.9); Potassium 3.5 mmol/L (3.5-5.1)
[2018-10-20 08:28] LABS: Bilirubin,Total 0.7 mg/dl (0.2-1); Globulin 2.9 gm/dl (2.5-4.0); Total Protein 5.7 gm/dl (6.4-8.2)
[2018-10-20] MEDS: LEVOTHYROXINE SODIUM 25 MCG in SYRINGE 0 ML IV SCH (08:46)
--- NOTE | 2018-10-20 09:45 | Hospitalist Progress Note ---
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 who presents to after sustaining fall and complaining of right hip pain and found to have acute displaced comminuted intertrochanteric fracture of the right femur acute displaced comminuted intertrochanteric fracture of the right femur -patient has cardiac risk factors which was calculated by admitting hospitalist team to be 10.1% as per Revised cardiac risk index -patient has history of stroke with reported left sided neglect, and also dementia; this may preclude post op recovery -10/19/18 initial goals of care discussions between hospitalist and orthopedics with initial outcomes that patient's family members did not want patient to proceed for surgical repair of the fracture of right femur -10/20/18 have been called by patient's daughter's Bernabe [phone] and family now wishes to proceed with surgery for Acute displaced comminuted intertrochanteric fracture of the right femur. Have called Margie/power of collections attorney/daughter [phone] and she confirmed these wishes. The thinking of the family appears that they feel that the surgery will improve the quality of patient's life. I have emphasized with patient's daughters that we have already discussed patient's high cardiac risk factors and potential barriers to meaningful recovery and potential complications from right femur surgical repair but they wish for orthopedics to proceed with procedure. I have discussed with orthopedic service Dr. Pedro and he agrees to take the case. He will be looking for available operating room time for today versus tomorrow. Patient remains non per oral History of right occipital lobe stroke -was evaluated for stroke on recent 10/10/18 admission -this admission Head CT 10/18/18 1. No acute intracranial findings. 2. No calvarial fracture. 3. Expected evolution of the right occipital lobe infarct since head CT of October 10, 2018. (4) UTI (urinary tract infection): -admission wbc 13k, urine + leukoesterase and bacturia -Probable urinary tract infection will treat empirically with 1 g Rocephin until culture return -patient's urine cultures returned as negative on 10/20/18, ceftriaxone is stopped but will give 1 dose of cefazolin on 10/20/18 as pre-op antibiotic (5) LILLIAN (acute kidney injury): -baseline cr 0.7-0.8 -BUN/creatinine 47 and 1.16 on admission -continue IVF D5 half NS at 60/hr -renal function improved with IV fluids -Hold Lasix and lisinopril Hypernatremia -serum sodium on admission 149 -downtrended to 145 with IV fluids (6) Constipation: -admission pelvic x-ray moderate stool burden in the rectum -suppository x1 was ordered by admitting team -oral bowel regimen medications when patient able to take oral medications (7) Cardiomyopathy: -History stents x4 with known ischemic cardiomyopathy -Echo done 10/2018 revealed EF 20 to 25%, left and right atrium severely dilated, severe MR, hypokinesis (8) CAD (coronary artery disease): -History stents x4 with known ischemic cardiomyopathy -Echo done 10/2018 revealed EF 20 to 25%, left and right atrium severely dilated, severe MR, hypokinesis -troponin elevated 0.072, ecg w/o acute ST changes - second troponin stable 0.074, third troponin 0.053 -possibly troponin elevations from demand ischemia -hold Lasix and lisinopril for now , will hold off aspirin for now until disposition by orthopedics -will give statin when patient ready to take oral medications (9) Atrial fibrillation: -patient's atrial fibrillation is rate controlled -at home patient is on metoprolol succinate 100 mg BID and digoxin 125 mcg daily -scheduled oral metoprolol decreased by cardiology service on 10/19/18 but patient is not able to take oral medications at this time -digoxin level 1.5 ; digoxin stopped by cardiology -will have metoprolol as 5 mg q4 hour prn if heart rate above 110 bpm but heart rates generally controlled at thus time (10) Hypothyroid: hold off home dose levothyroxine 50 mcg daily today levothyroxine as 25 mcg daily IV for now (11) DVT prophylaxis: off SCDs or medical VTE for now until orthopedic assessment for possible surgery today Follow up: Dr. Plata at [facility] Daughter KYLE Hanson, daughter Bernabe [phone] Subjective Patient seen and examined this morning. continues to be lethargic but more awake as she opens her eyes more today. not speaking. she is able to give resistance with her hands as yesterday. have been called by patient's daughter's Bernabe [phone] and family now wishes to proceed with surgery for Acute displaced comminuted intertrochanteric fracture of the right femur. Have called Margie [phone] and she confirmed these wishes. The thinking of the family appears that they feel that the surgery will improve the quality of patient's life. I have emphasized with patient's daughters that we have already discussed patient's high cardiac risk factors and potential barriers to meaningful recovery and potential complications from right femur surgical repair but they wish for orthopedics to proceed with procedure. I have discussed with orthopedic service Dr. Pedro and he agrees to take the case. He will be looking for available operating room time for today versus tomorrow. Patient remains non per oral Physical Exam Constitutional: + lethargic Eyes: PERRL, conjunctivae normal, anicteric sclerae ENMT: pupils equal and reactive to light, dry oral mucosa Neck: normal visual inspection Respiratory: normal respiratory effort, lungs clear to auscultation Cardiovascular: Rate/Rhythm: + bradycardic and + irregularly irregular Gastrointestinal (Abdomen): normal bowel sounds, soft, nontender, no hepatosplenomegaly Musculoskeletal: in position Neurologic: lethargic, able to give resistance with hands, moves upper extremities Results & Data Vital Signs (Past 12 Hours) Vital Signs Temp Pulse Resp BP Pulse Ox 10/20/18 07:28 36.5 C 85 20 123/53 L 100 10/20/18 02:55 36.5 C 87 18 106/68 100 10/19/18 23:25 36.6 C 97 H 18 133/88 98 (1) CAD (coronary artery disease) Associated angina: angina presence unspecified Coronary Disease-Associated Artery/Lesion type: [place] artery [place] vs. transplanted heart: [place] heart Qualified Code(s): I25.10 - Atherosclerotic heart disease of [place] coronary artery without angina pectoris (2) Atrial fibrillation Atrial fibrillation type: unspecified Qualified Code(s): I48.91 - Unspecified atrial fibrillation (3) Fracture of right hip Encounter type: initial encounter Fracture type: closed Qualified Code(s): S72.001A - Fracture of unspecified part of neck of right femur, initial encounter for closed fracture (4) Fall Encounter type: initial encounter Qualified Code(s): W19.XXXA - Unspecified fall, initial encounter
[2018-10-20] MEDS ORDERED: LIDOCAINE HCL 2% 2 ML VIAL/AMP(20MG/ML) INFIL ONE (09:46)
[2018-10-20] MEDS ORDERED: PROPOFOL IV EMULSION 10 MG/ML 20 ML VIAL IV ONE (09:46)
[2018-10-20] MEDS ORDERED: fentaNYL citrate 100 MCG/2 ML VIAL ONE (09:47)
[2018-10-20] MEDS ORDERED: POTASSIUM ACETATE 10 MEQ in 0.9 % SODIUM CHLORIDE 100 ML IV ONE (09:51)
[2018-10-20] MEDS ORDERED: POTASSIUM CHLORIDE / WTR 10 MEQ/100 ML PLCT IV SCH (10:00)
[2018-10-20] MEDS ORDERED: BACITRACIN INJ 50,000 UNIT VIAL ONE (10:30)
[2018-10-20] MEDS ORDERED: CEFAZOLIN 1000MG 1,000 MG/7.5 ML SYR IV SCH (10:30)
[2018-10-20] MEDS ORDERED: BUPIVACAINE 0.5 % 5 MG/1 ML PF 10ML VIAL ONE (10:32)
[2018-10-20] MEDS ORDERED: ATROPINE SULFATE 0.1 MG/ML 10ML SYR IV PRN (10:47)
[2018-10-20] MEDS ORDERED: ONDANSETRON INJ 2 MG/ML 2 ML VIAL IV PRN (10:47)
[2018-10-20] MEDS ORDERED: ePHEDrine sulfate 50 MG/ML AMP IV PRN (10:47)
[2018-10-20] MEDS ORDERED: PHENYLEPHRINE 100MCG/ML 5ML SYR IV PRN (10:47)
[2018-10-20] MEDS ORDERED: HYDROmorphone INJ 1 MG/ML SYRINGE IV PRN (10:47)
--- NOTE | 2018-10-20 10:55 | History & Physical Bridge Note ---
Date of Service October 20, 2018 History & Physical Bridge Note I have examined the patient, reviewed the History & Physical and in the interval since the performance of the History & Physical I have noted the following changes of clinical significance: the patients's family has changed their minds regarding surgery. They feel that the patient is in too much pain and would like surgery to improve pain control. risks of surgery again discussed and they wish to proceed.
[2018-10-20] MEDS ORDERED: CEFAZOLIN 250 MG/ML 1 GM VIAL ONE (11:22)
[2018-10-20] MEDS ORDERED: BUPIVACAINE 0.5 % 5 MG/1 ML MPF 30ML VIAL ONE (11:25)
--- NOTE | 2018-10-20 12:06 | Operative Report ---
Post Operative Report Pre & Post Diagnosis Operation Date: 10/19/18 07:30 <No data on this case meets the specified criteria> Operation Date: 10/20/18 10:00 Pre-Op Diagnosis: displaced comminuted intertrochanteric fracture of the right femur Post-Op Diagnosis: displaced comminuted intertrochanteric fracture of the right femur Procedure Operation Date: 10/19/18 07:30 <No data on this case meets the specified criteria> Operation Date: 10/20/18 10:00 Actual Procedures p Intramedullary Nailing of Right Femur(Right) - Leonel Pedro MD Surgeon Leonel Pedro MD Topper Press Operator None Estimated Blood Loss 20 Findings Consistent with Post-Op Diagnosis Specimens None Drains None Anesthesia Type Spinal MAC Complications none Disposition Accompanied Patient To Recovery: No Disposition: Recovery Room Indications The patient is an 82-year-old female who about a week ago sustained a stroke. She was in the hospital for several days and then was discharged. While there she fell. She sustained a displaced inotrope fracture. Initially the family wanted to proceed with only comfort care measures. However they felt as though the patient was into much pain even while sitting up and they wish to proceed with surgery for pain control. Patient is a very high risk secondary to her cardiac history. The understand the risks of surgery and wished to proceed. Description of Procedure Risks benefits and alternatives of surgery including but not limited to infection, DVT, PE, pain, stiffness, need for surgery, damage to blood vessels, damage to nerves or risks of anesthesia, were discussed with the patient and her family and they wished to proceed. Patient was identified in the laterality was confirmed and marked. They received a preoperative antibiotic. The patient was transferred to the fracture table. The operative limb was placed in traction and the well leg was placed in a well leg bautista that was well-padded. The arms were well-padded and placed out of the way of the surgical field. I confirmed reduction of the fracture with fluoroscopy with the patient's fracture table and made adjustments to fracture table alignment is necessary to reduce the fracture appropriately. The hip was then prepped and draped in the usual standard manner with ChloraPrep. I made a longitudinal incision proximal to the greater trochanter. I sharply incised through the skin and then used Bovie electrocautery to achieve hemostasis. I incised through the fascia and then bluntly dissected down to the tip of the greater trochanter. Under fluoroscopic guidance I placed a guide pin into the greater trochanter and ensured proper placement on both AP and lateral fluoroscopy views. Once I was satisfied with the position of the guide. I advanced this distally. I then overreamed with the 17 mm proximal reamer. I then placed a Synthes trochanteric fixation nail into position. The size of the nail was a short nail. Then I placed the guide arm onto the nail insertion device made a stab incision more distally and then placed the drill guide for the helical blade. I adjusted the position of the nail as necessary to ensure that the guidepin was center center in the femoral head. Once I was satisfied with the position of the pin advanced it to the appropriate position of the femoral head. I then measured and then reamed the lateral cortex and then reamed down into the femoral head. I then inserted a size [address] I then locked the set screw proximally and then compressed the fracture. Then through a stab incision I placed a interlocking screw through the drill guide. I confirmed hardware placement and maintenance of reduction on AP and lateral fluoroscopy views. Wounds were then thoroughly irrigated. The fascia was closed with interrupted #1 Vicryl suture. Subcutaneous tissues closed with interrupted 2-0 Vicryl suture and the skin with jluis. Sterile dressings applied. All needle and sponge counts were correct at the end of the procedure the patient was transferred to the PACU in stable condition without apparent complication. I attest to the content of the Intraoperative Record and any orders documented therein. Any exceptions are noted below.
[2018-10-20] MEDS ORDERED: NALOXONE HCL 0.4 MG/1 ML VIAL/CARP IV PRN (12:16)
[2018-10-20] MEDS ORDERED: ePHEDrine sulfate 50 MG/ML SYR ONE (12:26)
--- NOTE | 2018-10-20 12:52 | Anesthesiology Progress Note ---
Date of Service October 20, 2018 Anesthesia Post Procedure Vital Signs Vital Signs: Temp Pulse Pulse Resp BP BP Pulse Ox 10/20/18 12:46 87 104/75 100 10/20/18 12:45 76 100 10/20/18 12:40 80 121/65 100 10/20/18 12:35 85 105/53 L 100 10/20/18 12:31 79 91/55 L 100 10/20/18 12:30 87 15 100 10/20/18 12:25 84 14 106/58 L 100 10/20/18 12:20 94 H 102/60 10/20/18 12:15 36.6 C 82 14 91/58 L 91/58 L 100 10/20/18 08:00 72 10/20/18 07:28 36.5 C 85 20 123/53 L 100 10/20/18 02:55 36.5 C 87 18 106/68 100 10/19/18 23:25 36.6 C 97 H 18 133/88 98 10/19/18 20:00 85 99 10/19/18 19:12 35.8 C L 20 145/74 H 95 10/19/18 15:12 36.3 C L 67 20 138/72 90 Pain Intensity Right Hip: Pain Intensity: 0 Transfer of Care Handoff Completed per policy Notes Mental Status: see notes below (Unable to participate ) Patient Amnestic to Procedure: Yes Nausea / Vomiting: adequately controlled Pain: adequately controlled Airway Patency, RR, SpO2: stable & adequate BP & HR: stable & adequate Hydration State: stable & adequate Anesthetic Complications: no major complications apparent
--- NOTE | 2018-10-20 13:05 | Fluoroscopy Report ---
FL hip RT 2-3V CLINICAL HISTORY: ORIF RIGHT TROCH NAILING COMPARISON STUDY: Right hip radiographs October 18, 2018. FLUOROSCOPY TIME: 61.7 seconds. FLUOROSCOPIC IMAGES: 1 FINDINGS: Single image demonstrates partial visualization of the trochanteric nail which fixates the intertrochanteric fracture of the right femur. IMPRESSION: Fluoroscopic image partially visualizing internal fixation of the intertrochanteric frac ture of the right femur with trochanteric nail. Electronically signed by: Jhoan Nesbitt M.D. 10/20/2018 1:04 PM
[2018-10-20] MEDS: CEFAZOLIN 1000MG 1,000 MG/7.5 ML SYR IV SCH (19:00)
[2018-10-20] MEDS: DOCUSATE SODIUM/SENNA 50/8.6MG TAB PO SCH (20:48)
[2018-10-20] MEDS: DIGOXIN 0.125 MG TAB PO SCH (20:48)
[2018-10-20] MEDS: METOPROLOL SUCC 50MG EXT REL TAB PO SCH (20:48)
[2018-10-21] MEDS: CEFAZOLIN 1000MG 1,000 MG/7.5 ML SYR IV SCH (02:25)
[2018-10-21 07:01] LABS: Basophils # (auto) 0.01 K/uL (0-0.2); Basophils % (auto) 0.1 %; Eosinophils # (auto) 0.07 K/uL (0-0.5); Eosinophils % (auto) 0.7 %; Hematocrit (blood only) 38.4 % (37-47); Hemoglobin 12.7 g/dL (12.0-16.0); Immature Granulocytes # (auto) 0.02 K/uL (0.00-0.02); Immature Granulocytes % (auto) 0.2 %; Lymphocytes # (auto) 1.13 K/uL (1.2-3.4); Lymphocytes % (auto) 11.9 %; Mean Corpuscular Hgb Conc 33.1 g/dL (32-36); Mean Corpuscular Volume 93.4 fL (80-100); Mean Platelet Volume 10.8 fL (7.4-10.4); Monocytes # (auto) 1.07 K/uL (0.11-0.59); Monocytes % (auto) 11.3 %; Neutrophils # (auto) 7.19 K/uL (1.4-6.5); Neutrophils % (auto) 75.8 %; Platelet Count 197 K/uL (130-400); RDW Coefficient of Variation 13.5 % (11.5-14.5); RDW Standard Deviation 46.3 fL (36.4-46.3); Red Blood Count 4.11 M/uL (4.2-5.4); White Blood Count 9.49 K/uL (4.8-10.8)
--- NOTE | 2018-10-21 07:19 | Orthopedic Progress Note ---
Date of Service October 21, 2018 Assessment & Plan (1) Fracture of right hip: POD#1 IM nail right intertroch fracture -Pain management -PT/OT-WBAT -DVT prophylaxis-Aspirin 81mg BID -D/C planning-Will need SNF placement Subjective Patient is POD#1. Opens eyes to verbal stimuli, does not really respond to my questions today. She is resting comfortably. Review of Systems Review of Systems: Unobtainable due to cognitive status Physical Exam Physical Exam: Patient is resting in bed. Dressing is c/d/i. Calf is soft, non tender. Toes are mobile. Results & Data Vital Signs (Past 12 Hours) Vital Signs Temp Pulse Pulse Resp BP Pulse Ox 10/21/18 07:15 36.9 C 90 18 126/74 99 10/21/18 03:55 89 10/21/18 03:40 36.5 C 87 18 132/74 10/21/18 00:48 84 138/65 94 10/20/18 23:55 37 C 105 H 20 153/68 H 95 (1) Fracture of right hip Encounter type: initial encounter Fracture type: closed Qualified Code(s): S72.001A - Fracture of unspecified part of neck of right femur, initial encounter for closed fracture
[2018-10-21 07:35] LABS: BUN Creatinine Ratio 26.2 (10-20); Calcium 8.5 mg/dl (8.5-10.1); Creatinine Clr Calc Pharmacy 36.8 ml/min; Est GFR (African American) 76.7; Est GFR (Non-African American) 66.2; Potassium 4.3 mmol/L (3.5-5.1)
[2018-10-21] MEDS: MoRPHine SULFATE 2 MG/ML CARP IV PRN ×3 (07:54→23:20)
[2018-10-21] MEDS: ASPIRIN 81 MG ECTAB PO SCH ×2 (09:35→20:09)
[2018-10-21] MEDS: POTASSIUM CHLORIDE 10 MEQ TABCR PO SCH (09:35)
[2018-10-21] MEDS: LEVOTHYROXINE SODIUM 25 MCG in SYRINGE 0 ML IV SCH (09:35)
[2018-10-21] MEDS: PANTOprazole 40 MG TAB PO SCH (09:36)
--- NOTE | 2018-10-21 10:22 | Hospitalist Progress Note ---
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 who presents to [facility] after sustaining fall and complaining of right hip pain and found to have acute displaced comminuted intertrochanteric fracture of the right femur acute displaced comminuted intertrochanteric fracture of the right femur -patient has cardiac risk factors which was calculated by admitting hospitalist team to be 10.1% as per Revised cardiac risk index -patient has history of stroke with reported left sided neglect, and also dementia; this may preclude post op recovery -10/19/18 initial goals of care discussions between hospitalist and orthopedics with initial outcomes that patient's family members did not want patient to proceed for surgical repair of the fracture of right femur -10/20/18 have been called by patient's daughter's Bernabe [phone] and family now wishes to proceed with surgery for Acute displaced comminuted intertrochanteric fracture of the right femur. Have called Margie/power of loan auditor/daughter [phone] and she confirmed these wishes. The thinking of the family appears that they feel that the surgery will improve the quality of patient's life. I have emphasized with patient's daughters that we have already discussed patient's high cardiac risk factors and potential barriers to meaningful recovery and potential complications from right femur surgical repair but they wish for orthopedics to proceed with procedure. I have discussed with orthopedic service Dr. Pedro and he agrees to take the case and patient had internal fixation of the intertrochanteric fracture of the right femur with trochanteric nail -10/21/18 will try to continue DVT ppx as SCDs, orthopedics have ordered aspirin 81 mg BID but difficult to encourage patient to take pills by mouth, continue pain control History of right occipital lobe stroke -was evaluated for stroke on recent 10/10/18 admission -this admission Head CT 10/18/18 1. No acute intracranial findings. 2. No calvarial fracture. 3. Expected evolution of the right occipital lobe infarct since head CT of October 10, 2018. (4) UTI (urinary tract infection): -admission wbc 13k, urine + leukoesterase and bacturia -Probable urinary tract infection will treat empirically with 1 g Rocephin until culture return -patient's urine cultures returned as negative on 10/20/18, ceftriaxone is stopped and 1 dose of cefazolin on 10/20/18 as operative antibiotic was ordered -maintain tejeda for now because in pain and to measure output (5) LILLIAN (acute kidney injury): -baseline cr 0.7-0.8 -BUN/creatinine 47 and 1.16 on admission -continue IVF D5 half NS at 60/hr -renal function improved with IV fluids -Hold Lasix and lisinopril Hypernatremia -serum sodium on admission 149 -downtrended to 145 with IV fluids, continue low dose IV fluids for hydration and nutrition (6) Constipation: -admission pelvic x-ray moderate stool burden in the rectum -suppository x1 was ordered by admitting team -oral bowel regimen medications when patient able to take oral medications -ordered Relistor on 10/21/18 to prevent constipation from narcotic (7) Cardiomyopathy: -History stents x4 with known ischemic cardiomyopathy -Echo done 10/2018 revealed EF 20 to 25%, left and right atrium severely dilated, severe MR, hypokinesis -will schedule Lasix as 20 mg IV x 1 daily for now to prevent volume overload, hold lisinopril (8) CAD (coronary artery disease): -History stents x4 with known ischemic cardiomyopathy -Echo done 10/2018 revealed EF 20 to 25%, left and right atrium severely dilated, severe MR, hypokinesis -troponin elevated 0.072, ecg w/o acute ST changes - second troponin stable 0.074, third troponin 0.053. troponin elevations from demand ischemia and not myocardial infarction as per discussion with cardiology service -possibly troponin elevations from demand ischemia -will schedule Lasix as 20 mg IV x 1 daily for now to prevent volume overload, hold lisinopril -will give statin when patient ready to take oral medications (9) Atrial fibrillation: -patient's atrial fibrillation is rate controlled -at home patient is on metoprolol succinate 100 mg BID and digoxin 125 mcg daily -scheduled oral metoprolol decreased by cardiology service on 10/19/18 but patient does not appear to be able to take oral medications at this time -continue to hold digoxin; metoprolol is to be scheduled as 5 mg IV q6 hours as scheduled as of 10/21/18 (10) Hypothyroid: hold off home dose levothyroxine oral 50 mcg daily levothyroxine as 25 mcg daily IV for now (11) DVT prophylaxis: off SCDs or medical VTE for now until orthopedic assessment for possible surgery today Follow up: Dr. Plata at [facility] Daughter KYLE Hanson, daughter Bernabe [phone] Subjective Patient seen and examined this AM. Patient in atrial fibrillation with heart rates recorded on telemetry in the high 90s. currently off telemetry monitoring. as per flight technician, patient somehow able to get the leads off. Patient on exam is ill in appearance. she open's her eyes, able to make moaning sound but not really words. 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 ice pack over right thigh which has dressing. she winces when medical doctor adjusts ice pack. legs are in SCDs. as per nurse, patient has not been able to make bowel movement since the surgery. patient also declined AM pills Physical Exam Constitutional: + ill appearing Eyes: PERRL ENMT: external ear and nose normal, oropharynx normal Respiratory: normal respiratory effort Cardiovascular: Rate/Rhythm: regular rate and + irregularly irregular Gastrointestinal (Abdomen): normal bowel sounds, soft, nontender, no hepatosplenomegaly Musculoskeletal: Head/Neck/Chest: normocephalic and head atraumatic right thigh with dressing and ice pack Neurologic: lethargic Genitourinary: tejeda Results & Data Vital Signs (Past 12 Hours) Vital Signs Temp Pulse Pulse Resp BP Pulse Ox 10/21/18 07:15 36.9 C 90 18 126/74 99 10/21/18 03:55 89 10/21/18 03:40 36.5 C 87 18 132/74 10/21/18 00:48 84 138/65 94 10/20/18 23:55 37 C 105 H 20 153/68 H 95 (1) CAD (coronary artery disease) Associated angina: angina presence unspecified Coronary Disease-Associated Artery/Lesion type: [place] artery [place] vs. transplanted heart: [place] heart Qualified Code(s): I25.10 - Atherosclerotic heart disease of [place] coronary artery without angina pectoris (2) Atrial fibrillation Atrial fibrillation type: unspecified Qualified Code(s): I48.91 - Unspecified atrial fibrillation (3) Fracture of right hip Encounter type: initial encounter Fracture type: closed Qualified Code(s): S72.001A - Fracture of unspecified part of neck of right femur, initial encounter for closed fracture (4) Fall Encounter type: initial encounter Qualified Code(s): W19.XXXA - Unspecified fall, initial encounter
[2018-10-21] MEDS: METHYLNALTREXONE BROMIDE 12 MG/0.6 ML VIAL SQ SCH (11:04)
[2018-10-21] MEDS: METOPROLOL TARTRATE 1 MG/ML VIAL IV SCH ×3 (11:05→23:50)
[2018-10-21] MEDS: FUROSEMIDE 20 MG in SYRINGE 0 ML IV SCH (12:04)
[2018-10-21 13:24] LABS: T4 Free Thyroxine 1.04 ng/dl (0.8-1.6)
[2018-10-21] MEDS: D5W AND 1/2NSS 1,000 ML IV SCH (14:26)
[2018-10-21] MEDS: DOCUSATE SODIUM/SENNA 50/8.6MG TAB PO SCH (20:09)
[2018-10-21] MEDS: METOPROLOL SUCC 50MG EXT REL TAB PO SCH (20:10)
[2018-10-22] MEDS: METOPROLOL TARTRATE 1 MG/ML VIAL IV SCH ×4 (05:00→23:07)
[2018-10-22] MEDS: D5W AND 1/2NSS 1,000 ML IV SCH ×2 (06:05→22:10)
--- NOTE | 2018-10-22 07:30 | Orthopedic Progress Note ---
Date of Service October 22, 2018 Assessment & Plan (1) Fracture of right hip: POD#2 IM nail right intertroch fracture -Pain management -PT/OT-WBAT -DVT prophylaxis-Aspirin 81mg BID -D/C planning-Will need SNF placement Subjective Patient is POD#2. Opens eyes to verbal stimuli, moans but not really responding to questions. She is resting comfortably. Review of Systems Review of Systems: Unobtainable due to cognitive status Physical Exam Physical Exam: Dressing c/d/i, toes mobile. Calves are soft. Results & Data Vital Signs (Past 12 Hours) Vital Signs Temp Pulse Pulse Pulse Resp BP BP 10/22/18 07:28 36.4 C L 72 18 10/22/18 05:00 78 95/62 L 10/22/18 03:58 36.5 C 82 16 10/22/18 01:56 90 10/21/18 23:50 90 133/77 10/21/18 23:47 36.5 C 90 133/77 BP Pulse Ox 10/22/18 07:28 116/67 95 10/22/18 05:00 10/22/18 03:58 125/83 99 10/22/18 01:56 10/21/18 23:50 10/21/18 23:47 100 (1) Fracture of right hip Encounter type: initial encounter Fracture type: closed Qualified Code(s): S72.001A - Fracture of unspecified part of neck of right femur, initial encounter for closed fracture
[2018-10-22 07:53] LABS: Basophils # (auto) 0.02 K/uL (0-0.2); Basophils % (auto) 0.2 %; Eosinophils # (auto) 0.16 K/uL (0-0.5); Eosinophils % (auto) 1.8 %; Hematocrit (blood only) 35.3 % (37-47); Hemoglobin 12.1 g/dL (12.0-16.0); Immature Granulocytes # (auto) 0.02 K/uL (0.00-0.02); Immature Granulocytes % (auto) 0.2 %; Lymphocytes # (auto) 1.16 K/uL (1.2-3.4); Lymphocytes % (auto) 13.2 %; Mean Corpuscular Hgb Conc 34.3 g/dL (32-36); Mean Corpuscular Volume 90.7 fL (80-100); Mean Platelet Volume 10.9 fL (7.4-10.4); Monocytes % (auto) 11.4 %; Neutrophils % (auto) 73.2 %; Platelet Count 192 K/uL (130-400); RDW Coefficient of Variation 13.3 % (11.5-14.5); Red Blood Count 3.89 M/uL (4.2-5.4); White Blood Count 8.76 K/uL (4.8-10.8)
[2018-10-22] MEDS: PANTOprazole 40 MG TAB PO SCH (07:59)
[2018-10-22] MEDS: FUROSEMIDE 20 MG in SYRINGE 0 ML IV SCH (07:59)
[2018-10-22] MEDS: ASPIRIN 81 MG ECTAB PO SCH ×2 (07:59→20:12)
[2018-10-22 08:31] LABS: Albumin Globulin Ratio 0.7 (0.9-2); Albumin Level 2.2 gm/dl (3.4-5.0); BUN Creatinine Ratio 30.6 (10-20); Calcium 8.3 mg/dl (8.5-10.1); Creatinine Clr Calc Pharmacy 48.1 ml/min; Est GFR (African American) 97.2; Est GFR (Non-African American) 83.8; Magnesium 2.3 mg/dl (1.8-2.4); Phosphorus 1.6 mg/dl (2.5-4.9); Potassium 3.4 mmol/L (3.5-5.1); Total Protein 5.2 gm/dl (6.4-8.2)
[2018-10-22] MEDS: LEVOTHYROXINE SODIUM 25 MCG in SYRINGE 0 ML IV SCH (08:56)
[2018-10-22] MEDS: MoRPHine SULFATE 2 MG/ML CARP IV PRN (09:50)
[2018-10-22] MEDS: METOPROLOL SUCC 50MG EXT REL TAB PO SCH (12:22)
--- NOTE | 2018-10-22 14:41 | Hospitalist Progress Note ---
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 who presents to [facility] after sustaining fall and complaining of right hip pain and found to have acute displaced comminuted intertrochanteric fracture of the right femur acute displaced comminuted intertrochanteric fracture of the right femur -patient has cardiac risk factors which was calculated by admitting hospitalist team to be 10.1% as per Revised cardiac risk index -patient has history of stroke with reported left sided neglect, and also dementia; this may preclude post op recovery -10/19/18 initial goals of care discussions between hospitalist and orthopedics with initial outcomes that patient's family members did not want patient to proceed for surgical repair of the fracture of right femur -10/20/18 have been called by patient's daughter's Bernabe [phone] and family now wishes to proceed with surgery for Acute displaced comminuted intertrochanteric fracture of the right femur. Have called Margie/power of securities attorney/daughter [phone] and she confirmed these wishes. The thinking of the family appears that they feel that the surgery will improve the quality of patient's life. I have emphasized with patient's daughters that we have already discussed patient's high cardiac risk factors and potential barriers to meaningful recovery and potential complications from right femur surgical repair but they wish for orthopedics to proceed with procedure. I have discussed with orthopedic service Dr. Pedro and he agrees to take the case and patient had internal fixation of the intertrochanteric fracture of the right femur with trochanteric nail -10/21/18 will try to continue DVT ppx as SCDs, orthopedics have ordered aspirin 81 mg BID but difficult to encourage patient to take pills by mouth, continue pain control -10/22/18: patient more awake and able to pull off telemetry leads; but either on her own volition or inability cooperate to take food or pills when asked; attempts by nursing and speech/swallow therapist not successful; have discussed with daughter Mary Lou [phone] about permitting palliative care consult to discuss with them goals of care if patient cannot demonstrate that she can eat; Mary Lou also noting that patient would not want PEG tube; have discussed with patient's daughter that the inability to take oral metoprolol to control heart rate will prevent transition from hospital to nursing facility History of right occipital lobe stroke -was evaluated for stroke on recent 10/10/18 admission -this admission Head CT 10/18/18 1. No acute intracranial findings. 2. No calvarial fracture. 3. Expected evolution of the right occipital lobe infarct since head CT of October 10, 2018. (4) UTI (urinary tract infection): -admission wbc 13k, urine + leukoesterase and bacturia -Probable urinary tract infection will treat empirically with 1 g Rocephin until culture return -patient's urine cultures returned as negative on 10/20/18, ceftriaxone is stopped and 1 dose of cefazolin on 10/20/18 as operative antibiotic was ordered -maintain tejeda for now because to measure output (5) LILLIAN (acute kidney injury): -baseline cr 0.7-0.8 -BUN/creatinine 47 and 1.16 on admission -continue IVF D5 half NS at 60/hr -renal function improved with IV fluids -Hold lisinopril Hypernatremia -serum sodium on admission 149 -downtrended to 1 with IV fluids, continue low dose IV fluids for hydration and nutrition (6) Constipation: -admission pelvic x-ray moderate stool burden in the rectum -suppository x1 was ordered by admitting team -oral bowel regimen medications when patient able to take oral medications -Relistor on 10/21/18 to prevent constipation from narcotic (7) Cardiomyopathy: -History stents x4 with known ischemic cardiomyopathy -Echo done 10/2018 revealed EF 20 to 25%, left and right atrium severely dilated, severe MR, hypokinesis -will schedule Lasix as 20 mg IV x 1 daily for now to prevent volume overload, hold lisinopril (8) CAD (coronary artery disease): -History stents x4 with known ischemic cardiomyopathy -Echo done 10/2018 revealed EF 20 to 25%, left and right atrium severely dilated, severe MR, hypokinesis -troponin elevated 0.072, ecg w/o acute ST changes - second troponin stable 0.074, third troponin 0.053. troponin elevations from demand ischemia and not myocardial infarction as per discussion with cardiology service -possibly troponin elevations from demand ischemia -will schedule Lasix as 20 mg IV x 1 daily for now to prevent volume overload, hold lisinopril -will give statin when patient ready to take oral medications (9) Atrial fibrillation: -patient's atrial fibrillation is rate controlled -at home patient is on metoprolol succinate 100 mg BID and digoxin 125 mcg daily -scheduled oral metoprolol decreased by cardiology service on 10/19/18 but patient does not appear to be able to take oral medications at this time -continue to hold digoxin; metoprolol is to be scheduled as 5 mg IV q6 hours as scheduled as of 10/21/18 -have discussed with patient's daughter that the inability to take oral metoprolol to control heart rate will prevent transition from hospital to nursing facility (10) Hypothyroid: hold off home dose levothyroxine oral 50 mcg daily levothyroxine as 25 mcg daily IV for now TSH elevated as 8 but normal free T4 (11) DVT prophylaxis: on SCDs Daughter KYLE Hanson, daughter Bernabe [phone] eldest daughter Mary Lou [phone] Subjective patient more awake and able to pull off telemetry leads; but either on her own volition or inability cooperate to take food or pills when asked; attempts by nursing and speech/swallow therapist not successful; have discussed with daughter Mary Lou [phone] about permitting palliative care consult to discuss with them goals of care if patient cannot demonstrate that she can eat; Mary Lou also noting that patient would not want PEG tube. have discussed with patient's daughter that the inability to take oral metoprolol to control heart rate will prevent transition from hospital to nursing facility Physical Exam Constitutional: + ill appearing Eyes: PERRL, conjunctivae normal, anicteric sclerae ENMT: external ear and nose normal, oropharynx normal Neck: normal visual inspection Respiratory: normal respiratory effort, lungs clear to auscultation Cardiovascular: Rate/Rhythm: regular rate, + bradycardic and + irregularly irregular Gastrointestinal (Abdomen): normal bowel sounds, soft, nontender, no hepatosplenomegaly Musculoskeletal: Head/Neck/Chest: normocephalic and head atraumatic Neurologic: patient more awake and able to pull off telemetry leads; but either on her own volition or inability cooperate to take food or pills when asked Results & Data Vital Signs (Past 12 Hours) Vital Signs Temp Pulse Pulse Resp BP BP Pulse Ox 10/22/18 13:12 99 10/22/18 12:22 114 H 113/74 10/22/18 11:02 36.4 C L 90 18 112/61 99 10/22/18 09:53 141 H 130/77 10/22/18 08:39 86 10/22/18 08:00 36.4 C L 80 20 123/76 100 10/22/18 07:57 86 128/77 10/22/18 07:28 36.4 C L 72 18 116/67 95 10/22/18 05:00 78 95/62 L 10/22/18 03:58 36.5 C 82 16 125/83 99 (1) CAD (coronary artery disease) Associated angina: angina presence unspecified Coronary Disease-Associated Artery/Lesion type: [place] artery [place] vs. transplanted heart: [place] heart Qualified Code(s): I25.10 - Atherosclerotic heart disease of [place] coronary artery without angina pectoris (2) Atrial fibrillation Atrial fibrillation type: unspecified Qualified Code(s): I48.91 - Unspecified atrial fibrillation (3) Fracture of right hip Encounter type: initial encounter Fracture type: closed Qualified Code(s): S72.001A - Fracture of unspecified part of neck of right femur, initial encounter for closed fracture (4) Fall Encounter type: initial encounter Qualified Code(s): W19.XXXA - Unspecified fall, initial encounter
[2018-10-22] MEDS: POTASSIUM CHLORIDE / WTR 10 MEQ/100 ML PLCT IV SCH ×3 (15:41→18:03)
--- NOTE | 2018-10-22 15:46 | Palliative Care Consultation ---
Date of Consultation October 22, 2018 Assessment & Plan (1) Palliative care encounter: Patient seen and examined in room 275, patient's daughter Mary Lou, at bedside. Patient is an 82-year-old female with a past medical history of chronic A. fib- on dig and metoprolol, no JERED due to frequent falls, history of prior CVA-on aspirin/statin, recent CVA on 10/10, severe MR, CAD-status post stent, dementia, ICM O-EF 20 to 25% and HLD who presented to ER on 10/17 after a fall at her facility. Patient has been a resident at [facility] for the past 2 years. Patient was found to have a right comminuted femur fracture-she underwent intramedullary nailing on 10/20-she is weightbearing as tolerated. Patient had surgery under spinal anesthesia. Patient has not been able to take p.o. medications, has poor p.o. intake although she did have some pudding twice today. Patient also has evidence of a UTI-being treated. Patient having some postop pain-family reports patient cried out when sitting up-would recommend scheduled IV Tylenol 3 times daily-would avoid opioids given her severe dementia . Daughter reports patient minimally verbal for quite some time. Patient was seen after a fall here in August and had a CT scan that showed a remote lacunar infarct in the left thalamus as well as cerebral microcalcifications. Patient CT scan on this admission showed an acute right occipital CVA. Patient has advanced directives in which she would not want any life-sustaining measures including feeding tube and IV fluids-patient had voiced that she did not want a feeding tube recently took family. Patient has 4 daughters, Margie Mayer, is her POA-her daughters have been in contact with each other and are in agreement with comfort care. Patient would need to be ambulatory in order to return to [facility]-the family has already cleaned out her room. Family is looking into long-term facilities in the [place] area in anticipation of patient's discharge. If patient improves and is able to take some p.o. she can go to her long-term facility with transition to hospice at a later time, if she is not able to take p.o.-family is agreeable to hospice referral at the time of discharge. -Goals of care-patient is currently a DNR, family would not want a feeding tube or prolonged IV fluids if patient unable to take p.o. We will continue to monitor patient's recovery from surgery-seems a little more alert later this afternoon. -Right hip fracture-status post IM nailing on 10/20-weightbearing as tolerated, would recommend scheduled IV Tylenol 3 times daily for pain until patient able to take p.o.-avoid opioids in a patient with severe dementia -Frequent falls-not on AC for her chronic A. fib except for low-dose aspirin. Will need to see what deficits patient has status post recent CVA -Acute stroke-right occipital CVA on CT done on 10/10, remote lacunar infarct left thalamus with cerebral microcalcifications-PT/OT to evaluate for long-term, continue low-dose aspirin, statin, blood pressure control. - chronic A. fib -rate controlled with digoxin and metoprolol-dosing per cardiology. If patient able to take p.o. these can be crushed and put in pudding -CAD-no recent chest pain per family-status post stent. Continue low-dose aspirin, statin, blood pressure control -Dementia-patient will require long-term facility at the time of discharge -severe per family report Will continue to follow and assist family with medical decision making. (2) Fracture of right hip: Encounter type: initial encounter Fracture type: closed Qu alified Code(s): S72.001A - Fracture of unspecified part of neck of right femur, initial encounter for closed fracture (3) Fall: Encounter type: initial encounter Qualified Code(s): W19.XXXA - Unspecified fall, initial encounter (4) Stroke: CVA mechanism: unspecified Qualified Code(s): I63.9 - Cerebral infarction, unspecified (5) Atrial fibrillation: Atrial fibrillation type: unspecified Qualified Code(s): I48.91 - Unspecified atrial fibrillation (6) CAD (coronary artery disease): Coronary Disease-Associated Artery/Lesion type: [place] artery [place] vs. transplanted heart: [place] heart Associated angina: angina presence unspecified Qualified Code(s): I25.10 - Atherosclerotic heart disease of [place] coronary artery without angina pectoris (7) Dementia: History of Present Illness Reason for Consultation: Determine goals of care Requesting Physician: Dr. Elgin Khalil Attending Physician: Elgin Khalil MD History of Present Illness Patient seen and examined in room 275, patient's daughter Mary Lou, at bedside. Patient is an 82-year-old female with a past medical history of chronic A. fib- on dig and metoprolol, no JERED due to frequent falls, history of prior CVA-on aspirin/statin, recent CVA on 10/10, severe MR, CAD-status post stent, dementia, ICM O-EF 20 to 25% and HLD who presented to ER on 10/17 after a fall at her facility. Patient has been a resident at [facility] for the past 2 years. Patient was found to have a right comminuted femur fracture-she underwent intramedullary nailing on 10/20-she is weightbearing as tolerated. Patient had surgery under spinal anesthesia. Patient has not been able to take p.o. medications, has poor p.o. intake although she did have some pudding twice today. Patient also has evidence of a UTI-being treated. Patient having some postop pain-family reports patient cried out when sitting up-would recommend scheduled IV Tylenol 3 times daily-would avoid opioids given her severe dementia. Daughter reports patient minimally verbal for quite some time. Patient was seen after a fall here in August and had a CT scan that showed a remote lacunar infarct in the left thalamus as well as cerebral microcalcific ations. Patient CT scan on this admission showed an acute right occipital CVA. Patient has advanced directives in which she would not want any life-sustaining measures including feeding tube and IV fluids-patient had voiced that she did not want a feeding tube recently took family. Patient has 4 daughters, Margie Mayer, is her POA-her daughters have been in contact with each other and are in agreement with comfort care. Patient would need to be ambulatory in order to return to [facility]-the family has already cleaned out her room. Family is looking into long-term facilities in the [facility] in anticipation of patient's discharge. If patient improves and is able to take some p.o. she can go to her long-term facility with transition to hospice at a later time, if she is not able to take p.o.-family is agreeable to hospice referral at the time of discharge. Allergies Allergy/AdvReac Type Severity Reaction Status Date / Time levofloxacin Allergy Unknown Unverified 10/18/18 17:44 Quinolones Allergy Unknown Unverified 10/18/18 17:44 Home Medications Home Medications Medication Instructions Recorded Confirmed Type Mucinex DM 1 tab PO Q12H PRN 08/10/18 10/18/18 History acetaminophen [Tylenol] 650 mg PO Q4H PRN 08/10/18 10/18/18 History aspirin [Aspir-81] 81 mg PO QAM 08/10/18 10/18/18 History digoxin 125 mcg PO QPM 08/10/18 10/18/18 History docusate sodium [Colace] 100 mg PO QAM 08/10/18 10/18/18 History furosemide 20 mg PO QAM 08/10/18 10/18/18 History levothyroxine 50 mcg PO QAM 08/10/18 10/18/18 History melatonin 5 mg PO HS 08/10/18 10/18/18 History metoprolol succinate [Toprol XL] 100 mg PO BIDM 08/10/18 10/18/18 History pantoprazole 40 mg PO QAM 08/10/18 10/18/18 History polyethylene glycol 3350 [Miralax] 17 g PO DAILY PRN 08/10/18 10/18/18 History potassium chloride 10 meq PO QAM 08/10/18 10/18/18 History pravastatin 20 mg PO HS 08/10/18 10/18/18 History sennosides-docusate sodium 2 tab PO HS 08/10/18 10/18/18 History [Senna-S] lisinopril 5 mg PO QAM 10/18/18 10/18/18 History Patient History Medical History CAD (coronary artery disease) (Chronic) Dementia (Chronic) Atrial fibrillation (Chronic) Hyperlipidemia (Chronic) Cardiomyopathy (Chronic) EF 20-25% Hypothyroid (Chronic) CVA (cerebral vascular accident) 1-2 weeks ago Severe mitral regurgitation by prior echocardiogram Surgical History History of cardiac cath (Chronic) Stents x 4 Family History Other Family history unobtainable Social History Preferred Language: Uzbek Communication Ability: Impaired Communication Ability Comment: h/o CVA, non-verbal at this time 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 Hand Required: No Beliefs That Will Affect Care: Sabianism Sabianism Beliefs: [employer]ism of [employer] [place] marital status: / Current Living Situation: Prison Current Living Situation Comment: [facility] since d/c after CVA (was @ [facility] memory care unit) current occupational status: retired Feels Safe at Home: Yes Safety Concerns: Feels Safe At This Time Smoking Status: Never smoker Do You Dip or Chew Tobacco: No Hx Alcohol Use: No Hx Substance Use: No Review of Systems Review of Systems: Unobtainable due to cognitive status Physical Exam Physical Exam: PE: Patient awake, more alert per family, appears comfortable, denies pain or discomfort HEENT. Appears to have normal hearing, EOMI Respiratory. Unlabored, lungs clear on exam CV: Rate controlled Abdomen: Soft, nontender Extremities: Generalized weakness right greater than left, patient able to wiggle toes on the right Neuro: Was unable to identify daughter, but did not yes when asked if it was someone she knew. Results & Data Vital Signs (Past 12 Hours) Vital Signs Temp Pulse Pulse Resp BP BP Pulse Ox 10/22/18 15:25 87 10/22/18 13:12 99 10/22/18 12:22 114 H 113/74 10/22/18 11:02 97.5 F L 90 18 112/61 99 10/22/18 09:53 141 H 130/77 10/22/18 08:39 86 10/22/18 08:00 97.5 F L 80 20 123/76 100 10/22/18 07:57 86 128/77 10/22/18 07:28 97.5 F L 72 18 116/67 95 10/22/18 05:00 78 95/62 L 10/22/18 03:58 97.7 F 82 16 125/83 99 Time Spent Attending Total time spent 70 minutes with greater than 50% of the time spent at bedside discussing patient's current status as well as goals of care with daughter.
[2018-10-22] MEDS: ACETAMINOPHEN 65 ML IV SCH ×2 (16:36→23:18)
[2018-10-22] MEDS: DOCUSATE SODIUM/SENNA 50/8.6MG TAB PO SCH (20:12)
[2018-10-23] MEDS: METOPROLOL TARTRATE 1 MG/ML VIAL IV SCH ×5 (05:09→23:05)
--- NOTE | 2018-10-23 07:55 | Orthopedic Progress Note ---
Date of Service October 23, 2018 Assessment & Plan (1) Fracture of right hip: POD#3 IM nail right intertroch fracture -Pain management -PT/OT-WBAT -DVT prophylaxis-Aspirin 81mg BID -D/C planning-Will need SNF placement orthopedically stable will sign off at this time, please feel free to contact with any concerns during hospital stay. should follow up at [facility] with dr fenton team 12-14 days post op. Subjective Patient is POD #3, she does open her eyes to vebal cues but is non verbal. she does moan with movement of her leg, She is resting comfortably. Physical Exam Physical Exam: Vital Signs Temp 35.9 C L 10/23/18 07:20 Pulse 92 H 10/23/18 07:20 Resp 18 10/23/18 07:20 BP 157/67 H 10/23/18 07:20 Pulse Ox 99 10/23/18 07:20 Intake & Output 10/22/18 10/23/18 10/23/18 18:59 06:59 18:59 Intake Total 265 / 1395 1130 / 1395 Output Total 850 / 1150 300 / 1150 Balance -585 / 245 830 / 245 Weight 44.7 kg Intake: IV 265 / 1395 1130 / 1395 Ofirmev 65 ml @ 200 mls/hr IV 65 / 130 65 / 130 Q8H INDIO Rx#:[id number] D5w and 1/2Nss 1,000 ml @ 60 965 / 965 mls/hr IV .Q16 H40M INDIO Rx#: [id number] K RIDER / WTR 10 meq In 100 ml 200 / 300 100 / 300 @ 100 mls/hr I V Q1H INDIO Rx#: [id number] Oral 0 / 0 0 / 0 Output: Urine Amount (Ca theter) 850 / 1150 300 / 1150 Mckeon/Indwelli ng 850 / 1150 300 / 1150 Other: Other Intake Cathy rce SIPS Musculoskeletal: right hip dressing clean and dry, calf is soft non tender, she does wiggle her toes while I move her leg Results & Data Vital Signs (Past 12 Hours) Vital Signs Temp Pulse Pulse Resp BP BP BP 10/23/18 07:20 35.9 C L 92 H 18 157/67 H 10/23/18 05:09 121 H 150/81 H 10/23/18 04:00 36.6 C 95 H 20 147/78 H 10/22/18 23:07 120 H 135/95 10/22/18 22:51 36.0 C L 95 H 20 144/83 H Pulse Ox 10/23/18 07:20 99 10/23/18 05:09 10/23/18 04:00 95 10/22/18 23:07 10/22/18 22:51 95 (1) Fracture of right hip Encounter type: initial encounter Fracture type: closed Qualified Code(s): S72.001A - Fracture of unspecified part of neck of right femur, initial encounter for closed fracture
[2018-10-23 08:26] LABS: Calcium 8.4 mg/dl (8.5-10.1); Creatinine Clr Calc Pharmacy 54.7 ml/min; Est GFR (African American) 100.5; Est GFR (Non-African American) 86.7; Magnesium 2.1 mg/dl (1.8-2.4); Phosphorus 1.6 mg/dl (2.5-4.9); Potassium 3.3 mmol/L (3.5-5.1)
[2018-10-23] MEDS: ACETAMINOPHEN 65 ML IV SCH ×2 (08:55→16:18)
[2018-10-23] MEDS: METOPROLOL SUCC 50MG EXT REL TAB PO SCH (08:56)
[2018-10-23] MEDS: ASPIRIN 81 MG ECTAB PO SCH ×2 (08:56→20:58)
[2018-10-23] MEDS: METHYLNALTREXONE BROMIDE 12 MG/0.6 ML VIAL SQ SCH (08:56)
[2018-10-23] MEDS: FUROSEMIDE 20 MG in SYRINGE 0 ML IV SCH (08:56)
[2018-10-23] MEDS: LEVOTHYROXINE SODIUM 25 MCG in SYRINGE 0 ML IV SCH (09:53)
[2018-10-23] MEDS ORDERED: METOPROLOL TARTRATE 1 MG/ML VIAL IV SCH (10:15)
[2018-10-23] MEDS: POTASSIUM CHLORIDE / WTR 10 MEQ/100 ML PLCT IV SCH ×4 (12:16→15:18)
--- NOTE | 2018-10-23 13:41 | Palliative Care Progress Note ---
Date of Service October 23, 2018 Assessment & Plan (1) Palliative care encounter: Patient seen and examined in room 275, no family at bedside. Patient is an 82-year-old female with a past medical history of chronic A. fib- on dig and metoprolol, no JERED due to frequent falls, history of prior CVA-on aspirin/statin, recent CVA on 10/10, severe MR, CAD-status post stent, dementia, ICM O-EF 20 to 25% and HLD who presented to ER on 10/17 after a fall at her facility. Patient has been a resident at [facility] for the past 2 years. Patient was found to have a right comminuted femur fracture-she underwent intramedullary nailing on 10/20-she is weightbearing as tolerated. Patient had surgery under spinal anesthesia. Patient has not been able to take p.o. medications, has poor p.o. intake although she did have some pudding twice today. Patient also has evidence of a UTI-being treated. Patient having pain with movement of the right lower extremity-now on scheduled IV Tylenol 3 times daily-would avoid opioids given her severe dementia. Daughter reported patient minimally verbal for quite some time. Patient was seen after a fall here in August and had a CT scan that showed a remote lacunar infarct in the left thalamus as well as cerebral microcalcifications. Patient CT scan on this admission showed an acute right occipital CVA. Patient has advanced directives in which she would not want any life-sustaining measures including feeding tube and IV fluids-patient had voiced that she did not want a feeding tube recently took family. Patient has 4 daughters, Margie Mayer, is her POA-her daughters have been in contact with each other and are in agreement with comfort care. Patient would need to be ambulatory in order to return to [facility]-the family has already cleaned out her room. Family is looking into care home facilities in the [place] area in anticipation of patient's discharge. If patient improves and is able to take some p.o. she can go to her care home facility with transition to hospice at a later time, if she is not able to take p.o.-family is agreeable to hospice referral at the time of discharge. -Goals of care-patient is currently a DNR, family would not want a feeding tube or prolonged IV fluids if patient unable to take p.o. We will continue to monitor patient's recovery from surgery-seems a little more alert later this afternoon. -Right hip fracture-status post IM nailing on 10/20-weightbearing as tolerated, continue scheduled IV Tylenol 3 times daily for pain until patient able to take p.o.-avoid opioids in a patient with severe dementia -Frequent falls-not on AC for her chronic A. fib except for low-dose aspirin. Will need to see what deficits patient has status post recent CVA -Acute stroke-right occipital CVA on CT done on 10/10, remote lacunar infarct left thalamus with cerebral microcalcifications-PT/OT to evaluate for care home, continue low-dose aspirin, statin, blood pressure control. - chronic A. fib -rate controlled with digoxin and metoprolol-dosing per cardiology. If patient able to take p.o. these can be crushed and put in pudding -CAD-no recent chest pain per family-status post stent. Continue low-dose aspirin, statin, blood pressure control -Dementia-patient will require care home facility at the time of discharge -severe per family report Will continue to follow and assist family with medical decision making. (2) Fracture of right hip: (3) Fall: (4) Stroke: (5) Atrial fibrillation: (6) CAD (coronary artery disease): (7) Dementia: Subjective Patient seen and examined in her room, no family at bedside. Patient more alert compared to exam yesterday, nursing reports patient is still not taking p.o. Patient unable to report any pain or discomfort due to dementia-patient does say ouch when you try to move her right lower extremity. Patient is on scheduled IV Tylenol for pain. Family looking into care home facilities in the [facility]. Review of Systems Review of Systems: Unobtainable due to cognitive status Physical Exam Physical Exam: PE: Awake, able to answer wanted to questions by nodding. Did indicate discomfort when trying to extend right lower extremity. HEENT: EOMI, appears to hear Respiratory: Unlabored, clear breath sounds CV: Irregular rhythm, no edema, rate within acceptable range Abdomen: Soft, nontender Extremities: Discomfort when trying to extend right lower extremity, surgical dressing intact, no staining Neuro: Severe dementia Results & Data Vital Signs (Past 12 Hours) Vital Signs Temp Pulse Pulse Resp BP BP BP 10/23/18 13:27 108 H 158/78 H 10/23/18 13:25 108 H 158/78 H 10/23/18 12:11 114 H 96/73 L 10/23/18 11:24 97.9 F 115 H 18 151/81 H 10/23/18 10:49 82 10/23/18 07:20 96.6 F L 92 H 18 157/67 H 10/23/18 05:09 121 H 150/81 H 10/23/18 04:00 97.9 F 95 H 20 147/78 H Pulse Ox 10/23/18 13:27 10/23/18 13:25 10/23/18 12:11 10/23/18 11:24 99 10/23/18 10:49 10/23/18 07:20 99 10/23/18 05:09 10/23/18 04:00 95 Time Spent Attending Total time spent 25 minutes with greater than 50% of the time spent at bedside assessing patient's pain level, collaborated with attending physician. (1) Fracture of right hip Encounter type: initial encounter Fracture type: closed Qualified Code(s): S72.001A - Fracture of unspecified part of neck of right femur, initial encounter for closed fracture (2) Fall Encounter type: initial encounter Qualified Code(s): W19.XXXA - Unspecified fall, initial encounter (3) Stroke CVA mechanism: unspecified Qualified Code(s): I63.9 - Cerebral infarction, unspecified (4) Atrial fibrillation Atrial fibrillation type: unspecified Qualified Code(s): I48.91 - Unspecified atrial fibrillation (5) CAD (coronary artery disease) Coronary Disease-Associated Artery/Lesion type: [place] artery [place] vs. transplanted heart: [place] heart Associated angina: angina presence unspecified Qualified Code(s): I25.10 - Atherosclerotic heart disease of [place] coronary artery without angina pectoris
[2018-10-23] MEDS: D5W AND 1/2NSS 1,000 ML IV SCH (13:56)
--- NOTE | 2018-10-23 16:20 | Hospitalist Progress Note ---
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 who presents to [facility] after sustaining fall and complaining of right hip pain and found to have acute displaced comminuted intertrochanteric fracture of the right femur acute displaced comminuted intertrochanteric fracture of the right femur -patient has cardiac risk factors which was calculated by admitting hospitalist team to be 10.1% as per Revised cardiac risk index -patient has history of stroke with reported left sided neglect, and also dementia; this may preclude post op recovery post op Day 3 still declining PO meds increase Metoprolol IV to 10mg q6 for better heart rate control monitor BP ok to dc from Ortho standpoint discussed with alin Osuna with Heparin SC History of right occipital lobe stroke -was evaluated for stroke on recent 10/10/18 admission -this admission Head CT 10/18/18 1. No acute intracranial findings. 2. No calvarial fracture. 3. Expected evolution of the right occipital lobe infarct since head CT of October 10, 2018. (4) UTI (urinary tract infection): UTI ruled out (5) LILLIAN (acute kidney injury): -baseline cr 0.7-0.8 -BUN/creatinine 47 and 1.16 on admission - crea back to baseline -continue IVF D5 half NS at 60/hr -Hold lisinopril Hypernatremia -serum sodium on admission 149 Na 138 continue low dose IV fluids for hydration and nutrition (6) Constipation: per admitting team: -admission pelvic x-ray moderate stool burden in the rectum -suppository x1 was ordered by admitting team -oral bowel regimen medications when patient able to take oral medications -Relistor on 10/21/18 to prevent constipation from narcotic (7) Cardiomyopathy: -History stents x4 with known ischemic cardiomyopathy -Echo done 10/2018 revealed EF 20 to 25%, left and right atrium severely dilated, severe MR, hypokinesis -patient on the dry side- hold Lasix (8) CAD (coronary artery disease): per Dr. Khalil's notes: -History stents x4 with known ischemic cardiomyopathy -Echo done 10/2018 revealed EF 20 to 25%, left and right atrium severely dilated, severe MR, hypokinesis -troponin elevated 0.072, ecg w/o acute ST changes - second troponin stable 0.074, third troponin 0.053. troponin elevations from demand ischemia and not myocardial infarction as per discussion with cardiology service -possibly troponin elevations from demand ischemia (9) Atrial fibrillation: per Dr. Khalil's notes: -at home patient is on metoprolol succinate 100 mg BID and digoxin 125 mcg daily -scheduled oral metoprolol decreased by cardiology service on 10/19/18 but patient does not appear to be able to take oral medications at this time -continue to hold digoxin - increase Metoprolol IV to 10mg q6h for better rate control (10) Hypothyroid: hold off home dose levothyroxine oral 50 mcg daily levothyroxine as 25 mcg daily IV for now TSH elevated as 8 but normal free T4 (11) DVT prophylaxis: on SCDs ok to start Heparin SC per Ortho discussed with patient's daughter Mary Lou she states that the family has decided to transition her to SNF, aware of the fact that patient has been declining PO intake and medications reports that if patient continues to be like this at the SNF, family is contemplating on transitioning her to hospice service at the SNF they are comfortable and agreeable with plan of care Subjective ff up for s/p r hip surgery seen resting in bed, comfortable alert, pleasantly confused mumbles few random words, does not follow commands no signs of discomfort, respiratory distress still declines to eat or take PO medications no other symptoms noted Review of Systems Review of Systems: All systems reviewed & are unremarkable except as noted in HPI & below Physical Exam Physical Exam: General- oriented x0 , not in distress, speaks in few words with no effort or accessory muscle use Head- atraumatic Eyes- PERRL, EOMI, anicteric ENT- oropharynx clear Neck- supple, no JVD, no adenopathy, no thyromegaly; carotids +2/2, no bruits appreciated Lungs- clear to auscultation bilaterally, no rales/wheezes Heart-mild tachycardia rate, irregularly irregular rhythm; no murmur, no gallop, no rub appreciated Abdomen- normal bowel sounds, nondistended, soft, nontender, no masses or hepatosplenomegaly Extremities- no pretibial edema, no calf tenderness; peripheral pulses intact right hip: dressing in place- no bleeding or discharge, no edema noted Neuro- alert, oriented x 0; CN 2-12 grossly intact; moves extremities equally bilaterally; no other gross focal neurologic deficits Skin- warm & dry Results & Data Vital Signs (Past 12 Hours) Vital Signs Temp Pulse Pulse Resp BP BP BP 10/23/18 15:35 36.3 C L 113 H 20 156/85 H 10/23/18 15:12 110 H 10/23/18 13:27 108 H 158/78 H 10/23/18 13:25 108 H 158/78 H 10/23/18 12:11 114 H 96/73 L 10/23/18 11:24 36.6 C 115 H 18 151/81 H 10/23/18 10:49 82 10/23/18 07:20 35.9 C L 92 H 18 157/67 H 10/23/18 05:09 121 H 150/81 H Pulse Ox 10/23/18 15:35 96 10/23/18 15:12 10/23/18 13:27 10/23/18 13:25 10/23/18 12:11 10/23/18 11:24 99 10/23/18 10:49 10/23/18 07:20 99 10/23/18 05:09 Laboratory Results Laboratory Results - last 24 hr 10/23/18 07:58 Sodium 138 Potassium 3.3 L Chloride 107 Carbon Dioxide 25 Anion Gap 6.0 BUN 17 Creatinine 0.55 L Est Cr Clr Drug Dosing 54.7 Est GFR ( Amer) 100.5 Est GFR (Non-Af Amer) 86.7 BUN/Creatinine Ratio 31.0 H Glucose 131 H Calcium 8.4 L Phosphorus 1.6 L Magnesium 2.1 (1) CAD (coronary artery disease) Associated angina: angina presence unspecified Coronary Disease-Associated Artery/Lesion type: [place] artery [place] vs. transplanted heart: [place] heart Qualified Code(s): I25.10 - Atherosclerotic heart disease of [place] coronary artery without angina pectoris (2) Atrial fibrillation Atrial fibrillation type: unspecified Qualified Code(s): I48.91 - Unspecified atrial fibrillation (3) Fracture of right hip Encounter type: initial encounter Fracture type: closed Qualified Code(s): S72.001A - Fracture of unspecified part of neck of right femur, initial encounter for closed fracture (4) Fall Encounter type: initial encounter Qualified Code(s): W19.XXXA - Unspecified fall, initial encounter
[2018-10-23] MEDS ORDERED: POTASSIUM PHOS 3 MMOL/1 ML INFUSION IV STA (18:08)
[2018-10-23] MEDS ORDERED: POTASSIUM PHOSPHATE 21 MMOL in SODIUM CHLORIDE 0.9% 500 ML IV ONE (18:30)
[2018-10-23] MEDS: HEPARIN SOD 5,000 UNIT/0.5 ML VIAL SQ SCH (20:54)
[2018-10-23] MEDS: DOCUSATE SODIUM/SENNA 50/8.6MG TAB PO SCH (20:58)
[2018-10-24] MEDS: ACETAMINOPHEN 65 ML IV SCH ×2 (00:53→07:54)
[2018-10-24] MEDS: D5W AND 1/2NSS 1,000 ML IV SCH (05:53)
[2018-10-24] MEDS: METOPROLOL TARTRATE 1 MG/ML VIAL IV SCH ×2 (05:55→11:07)
[2018-10-24 06:53] LABS: BUN Creatinine Ratio 21.1 (10-20); Calcium 7.9 mg/dl (8.5-10.1); Est GFR (African American) 97.7; Est GFR (Non-African American) 84.3; Phosphorus 2.3 mg/dl (2.5-4.9); Potassium 3.8 mmol/L (3.5-5.1)
[2018-10-24] MEDS: METOPROLOL SUCC 50MG EXT REL TAB PO SCH (07:54)
[2018-10-24] MEDS: ASPIRIN 81 MG ECTAB PO SCH (07:54)
[2018-10-24] MEDS: HEPARIN SOD 5,000 UNIT/0.5 ML VIAL SQ SCH (07:56)
[2018-10-24] MEDS ORDERED: LEVOTHYROXINE SODIUM 12.5 MCG in SYRINGE 0 ML IV SCH (09:00)
--- NOTE | 2018-10-24 12:08 | Hospitalist Progress Note ---
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 who presents to [facility] after sustaining fall and complaining of right hip pain and found to have acute displaced comminuted intertrochanteric fracture of the right femur - CT lower ext: acute displaced comminuted intertrochanteric fracture of the right femur - Cardiology SVC consulted for pre-operative evaluation - 10/20/18: s/p Intramedullary Nailing of Right Femur(Right) - Leonel Pedro MD - post operatively, patient declined to eat nor take her usual PO medications PO Metoprolol changed to IV, HR controlled - as patient was not improving with PO intake, discussed with family, palliative care consulted plan to transition to SNF, accepted to [facility] discussed with patient's daughter Mary Lou, they are aware/accepting that patient's po intake has deteriorated, plan to observe at SNF and possibly transition to Hospice if without improve family aware that if patient is not able to take her PO medications- Metoprolol, Digoxin, ASA, that this may lead to worsening of medical condition including heart attak, stroke, CHF, etc. and they are accepting and understanding - cleared for d/c by Ortho recommend weight bearing as tolerated recommend Heparin SC for DVT prophylaxis for at least 1 month ff up with [facility]- Dr. Pedro 2 weeks after Surgery (10/20/18) - continue usual PO medications including Metoprolol, Digoxin, ASA, etc. History of right occipital lobe stroke -was evaluated for stroke on recent 10/10/18 admission -this admission Head CT 10/18/18 1. No acute intracranial findings. 2. No calvarial fracture. 3. Expected evolution of the right occipital lobe infarct since head CT of October 10, 2018. - continue ASA, Statin (4) UTI (urinary tract infection): UTI ruled out (5) LILLIAN (acute kidney injury): -baseline cr 0.7-0.8 -BUN/creatinine 47 and 1.16 on admission - crea back to baseline -continue IVF D5 half NS at 60/hr -Hold lisinopril Hypernatremia -serum sodium on admission 149 Na 138 given IV fluids for hydration and nutrition (6) Constipation: per admitting team: -admission pelvic x-ray moderate stool burden in the rectum -suppository x1 was ordered by admitting team -oral bowel regimen medications when patient able to take oral medications -Relistor on 10/21/18 to prevent constipation from narcotic - continue bowel regimen, PRN suppository (7) Cardiomyopathy: -History stents x4 with known ischemic cardiomyopathy -Echo done 10/2018 revealed EF 20 to 25%, left and right atrium severely dilated, severe MR, hypokinesis -patient on the dry side- holding usual Lasix 20mg po daily- please re-eval volume status and resume accordingly (8) CAD (coronary artery disease): per Dr. Khalil's notes: -History stents x4 with known ischemic cardiomyopathy -Echo done 10/2018 revealed EF 20 to 25%, left and right atrium severely dilated, severe MR, hypokinesis -troponin elevated 0.072, ecg w/o acute ST changes - second troponin stable 0.074, third troponin 0.053. troponin elevations from demand ischemia and not myocardial infarction as per discussion with cardiology service -possibly troponin elevations from demand ischemia (9) Atrial fibrillation: -at home patient is on metoprolol succinate 100 mg BID and digoxin 125 mcg daily - patient given IV Metoprolol as inpatient as patient declining PO medications - upon discharge, scheduled oral metoprolol decreased to 150mg daily, Digoxin reduced to 3x/week as per Cardiology recommendations - monitor HR (10) Hypothyroid: TSH elevated as 8 but normal free T4 continue usual L thyroxine (11) DVT prophylaxis: Heparin SC x 1 month per Ortho discussed with patient's daughter Mary Lou she states that the family has decided to transition her to SNF, aware of the fact that patient has been declining PO intake and medications reports that if patient continues to be like this at the SNF, family is contemplating on transitioning her to hospice service at the SNF they are comfortable and agreeable with plan of care Follow up: Dr. [facility] 2 weeks after surgery date PCP ff up c/o SNF Subjective ff up for s/p right hip surgery per RN patient is comfortable overall, denied pain this AM had 2-3 bites of Jello yesterday, couple of spoon of ice cream, and sip of Boost this AM still not taking PO medications seen sleeping but easily rousable not in distress, still confused does not follow commands ROS difficult to obtain due to cognitive status no other signs noted per director of global talent of Systems Review of Systems: All systems reviewed & are unremarkable except as noted in HPI & below Physical Exam Physical Exam: General-not space oriented, not in distress, breathing with no effort or accessory muscle use Eyes- anicteric Neck- no JVD Lungs- clear breath sounds bilaterally, no crackles, no wheezing Heart- normal rate, irregularly irregular rhythm; no murmurs Abdomen- normal bowel sounds, nondistended, soft, nontender Extremities- no pretibial edema, no calf tenderness Right hip: Wound healing well, jluis in place, no bleeding or discharge No edema/erythema/hematoma noted around surgical site Neuro-sleeping but easily arousable, not oriented; confused, no other new gross focal neurologic deficits Skin- warm & dry Results & Data Vital Signs (Past 12 Hours) Vital Signs Temp Pulse Pulse Pulse Resp BP BP 10/24/18 11:36 36.4 C L 82 16 111/65 10/24/18 11:07 119 H 120/81 10/24/18 08:22 86 10/24/18 06:54 36.4 C L 97 H 19 131/74 10/24/18 05:55 77 124/74 10/24/18 04:00 36.6 C 79 18 109/63 Pulse Ox 10/24/18 11:36 98 10/24/18 11:07 10/24/18 08:22 10/24/18 06:54 91 10/24/18 05:55 10/24/18 04:00 100 Laboratory Results Laboratory Results - last 24 hr 10/24/18 06:02 Sodium 137 Potassium 3.8 D Chloride 109 H Carbon Dioxide 24 Anion Gap 4.0 BUN 13 Creatinine 0.60 Est Cr Clr Drug Dosing 50.0 Est GFR ( Amer) 97.7 Est GFR (Non-Af Amer) 84.3 BUN/Creatinine Ratio 21.1 H Glucose 110 H Calcium 7.9 L Phosphorus 2.3 L (1) Fall Encounter type: initial encounter Qualified Code(s): W19.XXXA - Unspecified fall, initial encounter (2) Fracture of right hip Encounter type: initial encounter Fracture type: closed Qualified Code(s): S72.001A - Fracture of unspecified part of neck of right femur, initial encounter for closed fracture (3) CAD (coronary artery disease) Coronary Disease-Associated Artery/Lesion type: [place] artery [place] vs. transplanted heart: [place] heart Associated angina: angina presence unspecified Qualified Code(s): I25.10 - Atherosclerotic heart disease of [place] coronary artery without angina pectoris (4) Atrial fibrillation Atrial fibrillation type: unspecified Qualified Code(s): I48.91 - Unspecified atrial fibrillation
--- NOTE | 2018-10-24 12:43 | Discharge Summary ---
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 Unable to obtain history from patient given advanced dementia. History obtained from daughter. Unfortunately patient was hospitalized at [facility] on 10/10 secondary to fall, increased confusion and difficulty using fork. Pt was diagnosed with acute right occipital lobe stroke. Work-up at that time revealed EF 20 to 25%, left atrium, right atrium severely dilated, severe MR and hypokinesis. Given patient's advanced dementia discussion with daughter recommended against any aggressive diagnostic or therapeutic interventions. She was recommended to continue on aspirin and statin for risk reduction therapy, but not on anticoagulation given advanced age and dementia. Prior to CVA patient was ambulatory with out assist device and would even, "run" at times per daughter. Ever since CVA she has been W/C bound. Discharged on 10/12/18. She has been having daily falls secondary to forgetting she is unable to walk. She sustained her last fall last evening at dinner. Due to complaints of right hip pain she was sent to ED for evaluation. Admission Exam Per Admitting Provider Gen: Thin, cachectic, frail elderly female, lying in bed, responsive to painful stimuli but otherwise unable to answer questions appropriately Head: Normocephalic, Atraumatic, bilateral temporal wasting Eyes: Sclera normal, no conjunctival injection, Pupils equal, reactive to light but slow to respond L > R ENT: Unable to inspect given pt unable to follow commands, membranes very dry Neck: supple, no adenopathy, No JVD, no bruit, Resp: Clear to auscultation b/l with shallow respirations, no wheeze, rales, rhonchi. Decreased insp/exp effort, no accessory muscle use CV: irregular rate, irregular rhythm, no murmur, rub, gallop, or ectopy Abd: +BS x 4, soft, nontender, nondistended Musculoskeletal: b/l upper ext with decort posturing, able to passively extend/flex, RLE shortened and everted, unable to assess strength Extremities: No edema bilaterally, R foot cold with discoloration to toes compared to L, diminished/absent R Pedal pulse, +1 L peda pulse Skin: warm, moist, no rash, numerous ecchymosis to b/l lower and upper ext, mod turgor, cap refill > 2sec Neuro: Alert and responsive to painful stimuli, demented, doesn't follow commands or answer questions approp, unable to assess cranial nerves : deferred Principal Diagnosis Acute displaced comminuted intertrochanteric fracture of the right femur, s/p Intramedullary Nailing of Right Femur(Right) - Leonel Pedro MD Discharge Exam General-not space oriented, not in distress, breathing with no effort or accessory muscle use Eyes- anicteric Neck- no JVD Lungs- clear breath sounds bilaterally, no crackles, no wheezing Heart- normal rate, irregularly irregular rhythm; no murmurs Abdomen- normal bowel sounds, nondistended, soft, nontender Extremities- no pretibial edema, no calf tenderness Right hip: Wound healing well, jluis in place, no bleeding or discharge No edema/erythema/hematoma noted around surgical site Neuro-sleeping but easily arousable, not oriented; confused, no other new gross focal neurologic deficits Skin- warm & dry Discharge Data Allergies Allergy/AdvReac Type Severity Reaction Status Date / Time levofloxacin Allergy Unknown Unverified 10/18/18 17:44 Quinolones Allergy Unknown Unverified 10/18/18 17:44 Consultations 10/18/18 19:07 ED Decision to Admit Stat 10/18/18 20:21 Consult Orthopedic Surgery Routine 10/18/18 22:00 Consult Anesthesiology Routine Consult Case Management - Discharge Planning Routine 10/19/18 08:00 Consult Cardiology Routine 10/20/18 12:16 Consult Case Management - Discharge Planning Routine 10/22/18 14:31 Consult Palliative Care Routine Procedures Performed Operation Date: 10/19/18 07:30 <No data on this case meets the specified criteria> Operation Date: 10/20/18 10:00 Actual Procedures p Intramedullary Nailing of Right Femur(Right) - Leonel Pedro MD Ordered Studies 10/18/18 16:53 CT cervical spine wo con Stat IMPRESSION: 1. No acute osseous injury of the cervical spine. 2. Mild multilevel degenerative changes. 3. Osteopenia. CT head/brain wo con Stat IMPRESSION: 1. No acute intracranial findings. 2. No calvarial fracture. 3. Expected evolution of the right occipital lobe infarct since head CT of October 10, 2018. 10/18/18 19:20 CT angio LE RT wo/w or w/only Stat IMPRESSION: 1. No evidence for vascular injury. Intact right common femoral, superficial femoral, profunda and popliteal arteries. Moderate plaque without severe stenosis. 2. Acute displaced comminuted intertrochanteric fracture of the right femur. 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 who presents to [facility] after sustaining fall and complaining of right hip pain and found to have acute displaced comminuted intertrochanteric fracture of the right femur - CT lower ext: acute displaced comminuted intertrochanteric fracture of the right femur - Cardiology SVC consulted for pre-operative evaluation, patient deemed high risk for cardiovascular complications given numerous comorbidities - 10/20/18: s/p Intramedullary Nailing of Right Femur(Right) - Leonel Pedro MD - post operatively, patient declined to eat nor take her usual PO medications PO Metoprolol changed to IV, HR controlled - as patient was not improving with PO intake, discussed with family, palliative care consulted plan to transition to SNF, accepted to [facility] discussed with patient's daughter Mary Lou, they are aware/accepting that patient's po intake has deteriorated, plan to observe at SNF and possibly transition to Hospice if without improve family aware that if patient is not able to take her PO medications- Metoprolol, Digoxin, ASA, that this may lead to worsening of medical condition including heart attak, stroke, CHF, etc. and they are accepting and understanding - cleared for d/c by Ortho recommend weight bearing as tolerated recommend Heparin SC for DVT prophylaxis for at least 1 month ff up with [facility]- Dr. Pedro 2 weeks after Surgery (10/20/18) - continue usual PO medications including Metoprolol, Digoxin, ASA, etc. History of right occipital lobe stroke -was evaluated for stroke on recent 10/10/18 admission -this admission Head CT 10/18/18 1. No acute intracranial findings. 2. No calvarial fracture. 3. Expected evolution of the right occipital lobe infarct since head CT of October 10, 2018. - continue ASA, Statin (4) UTI (urinary tract infection): UTI ruled out (5) LILLIAN (acute kidney injury): -baseline cr 0.7-0.8 - BUN/creatinine 47 and 1.16 on admission - crea back to baseline -continue IVF D5 half NS at 60/hr -Hold lisinopril Hypernatremia -serum sodium on admission 149 given IV fluids for hydration and nutrition Na improved 138 (6) Constipation: per admitting team: -admission pelvic x-ray moderate stool burden in the rectum -suppository x1 was ordered by admitting team -oral bowel regimen medications when patient able to take oral medications -Relistor on 10/21/18 to prevent constipation from narcotic - continue bowel regimen, PRN suppository (7) Cardiomyopathy: -History stents x4 with known ischemic cardiomyopathy -Echo done 10/2018 revealed EF 20 to 25%, left and right atrium severely dilated, severe MR, hypokinesis -patient on the dry side- holding usual Lasix 20mg po daily- please re-eval volume status and resume accordingly (8) CAD (coronary artery disease): per Dr. Khalil's notes: -History stents x4 with known ischemic cardiomyopathy -Echo done 10/2018 revealed EF 20 to 25%, left and right atrium severely dilated, severe MR, hypokinesis -troponin elevated 0.072, ecg w/o acute ST changes - second troponin stable 0.074, third troponin 0.053. troponin elevations from demand ischemia and not myocardial infarction as per discussion with cardiology service -possibly troponin elevations from demand ischemia (9) Atrial fibrillation: -at home patient is on metoprolol succinate 100 mg BID and digoxin 125 mcg daily - patient given IV Metoprolol as inpatient as patient declining PO medications - upon discharge, scheduled oral metoprolol decreased to 150mg daily, Digoxin reduced to 3x/week as per Cardiology recommendations - monitor HR (10) Hypothyroid: TSH elevated as 8 but normal free T4 continue usual L thyroxine (11) DVT prophylaxis: Heparin SC x 1 month per Ortho discussed with patient's daughter Mary Lou over the phone she states that the family has decided to transition her to SNF, aware of the fact that patient has been declining PO intake and medications reports that if patient continues to be like this at the SNF, family is contemplating on transitioning her to hospice service at the SNF they are comfortable and agreeable with plan of care Follow up: Dr. Pedro [facility] 2 weeks after surgery date PCP ff up c/o SNF Total Time Total Time Spent Total Time Spent (In Minutes): 60 minutes Discharge Plan Discharge Items Patient Disposition: Transfer Detention Fac Reason For Visit: HIP FRACTURE Discharge Diagnosis: HIP FRACTURE, S/P SURGERY Discharge Goals: Decrease discomfort, Diagnostic testing and Therapeutic intervention Activity: As commented below Activity Comment: WEIGHT BEARING TOLERATED, CONTINUE PT/OT, ALWAYS WITH ASSISTANCE Exercise Comment: FALL PRECAUTIONS Weightbearing Comment: WEIGHT BEARING TOLERATED Non-emergency contact: Primary Care Provider and Surgeon Call non-emergency contact if: you have any medication questions, your symptoms worsen, your pain is not controlled, your pain is worsening, you have a fever, your wound has increased redness, your wound has increased drainage and your wound pain has increased Follow-up/Referrals: Leonel Pedro MD [Surgeon] - Diet: Heart Healthy Diet Comment: CLEAR LIQUID DIET, ADVANCE TOLERATED, ASPIRATION PRECAUTIONS Addtl Provider Instructions: PLEASE REFER TO ACCOMPANYING HOSPITAL DISCHARGE SUMMARY FOR FURTHER DETAILS. [facility] DISCHARGE INSTRUCTIONS: HIP FRACTURE SELF CARE INSTRUCTIONS: A. You are to ambulate with a walker or crutches for approximately 6 weeks. B. You are WEIGHT BEARING TOLERATED on your operative lower extremity. C. Wear low heeled shoes with non-slip soles D. Be sure that your floors are free of things that could trip you throw rugs, electrical cords, and small objects. Avoid wet and waxed floors, especially with crutches/walker/cane. E. Try to walk several times a day with rest periods between. F. You may shower 48 hours after surgery and get the incision area wet, but DO NOT soak or submerge incision area in water. (No baths, swimming pools, hot tubs) G. You may have a large, band-aid like dressing over your incision (Aquacel). This will remain on your incision for 7 days, and then can be removed. You CAN shower with this on. If incision is leaking through the dressing, please call the office . H. Do NOT apply soap or any ointment/lotions directly over incision. I. You may use ice as needed to operative site. SPECIAL CARE INSTRUCTIONS: VERY IMPORTANT TO READ AND REVIEW A. You may be at risk for phlebitis or blood clots. a. Wear surgical stockings (BLANCA hose) for 2 weeks after surgery to improve circulation and reduce swelling. B. There are a few signs you need to watch for after you are home. Call [facility] at [phone] if you experience any of the following: a. If you have a temperature of 101 degrees or higher. b. Sudden increase in pain in your hip not relieved by rest or pain medication. c. Any fluid or drainage from the incision; redness of the incision. d. Shortness of breath or chest pain. B. Please call [facility] at [phone] if you have any questions or concerns about your operation or recovery. C. Call your physician if: a. Temperature is greater than 101 degrees (F). b. Pain is not relieved by prescribed pain medications. c. Increase drainage or redness from incision. d. Unanswered questions or concerns. D. Pain Medication: a. You will be prescribed pain medication upon discharge that should last till your first post-operative appointment. b. If you experience nausea and/or skin rash, discontinue this medication and contact our office for an alternative medication. c. Caution- narcotic pain medication can cause constipation. FOLLOW UP VISIT: Please call [facility] at [phone] to schedule a follow up appointment 10-14 days from the date of your surgery date with Dr Pedro Prescriptions: New heparin, porcine (PF) 5,000 unit/0.5 mL Syringe 5,000 unit subcut Q12 30 Days Qty: 30 RF: 0 tramadol 50 mg tablet 50 mg PO Q6H PRN (Reason: pain) Qty: 10 RF: 0 Continued pravastatin 20 mg Tablet 20 mg PO HS 30 Days Qty: 30 RF: 0 aspirin [Aspir-81] 81 mg Tablet,Delayed Release (Dr/Ec) 81 mg PO QAM RF: 0 docusate sodium [Colace] 100 mg Capsule 100 mg PO QAM RF: 0 polyethylene glycol 3350 [Miralax] 17 gram/dose Powder 17 g PO DAILY PRN (Reason: Constipation) RF: 0 melatonin 5 mg Tablet 5 mg PO HS RF: 0 Mucinex DM 30-600 mg Tablet Extended Release 12 Hr 1 tab PO Q12H PRN (Reason: Congestion) RF: 0 pantoprazole 40 mg Tablet,Delayed Release (Dr/Ec) 40 mg PO QAM RF: 0 potassium chloride 10 mEq Capsule, Extended Release 10 meq PO QAM RF: 0 sennosides-docusate sodium [Senna-S] 8.6-50 mg Tablet 2 tab PO HS RF: 0 levothyroxine 50 mcg Tablet 50 mcg PO QAM RF: 0 acetaminophen [Tylenol] 325 mg Tablet 650 mg PO Q4H PRN (Reason: Fever Or Pain) RF: 0 Changed metoprolol succinate [Toprol XL] 100 mg Tablet Extended Release 24 Hr 150 mg PO DAILY 30 Days Qty: 45 RF: 0 digoxin 125 mcg Tablet 125 mcg PO Q2D 30 Days Qty: 12 RF: 0 Discontinued lisinopril 5 mg Tablet 5 mg PO QAM RF: 0 furosemide 20 mg Tablet 20 mg PO QAM RF: 0 Stand-Alone Forms: [facility] Discharge Orders: Discharge Order (Routine); Ordered 10/24/18 Ordered By: Trevon Esquivel Skilled Items Patient informed of condition?: No DNR: Yes Discharge Level of Care: Skilled Communicable Disease: No Discharge Prognosis: Other Admission Data Admit Date/Time: 10/18/18 19:48 Attending Provider: Trevon Esquivel Admit Provider: Tim Morataya Primary Care Provider: Daya Lawson Beaumont Other Providers: Trevon Esquivel ; Leonel Pedro ; Prasanna Oswald ; Navarro Mayer ; Tera Crane ; Benja Sandoval ; Broderick John ; Jesse Michelle ; Roosevelt Saeed ; Kerry Booker ; Vandana Luna ; Renita Vee ; Elgin Khalil Service: Telemetry Medical
== END 2018-10-24 15:26 ==
LOC: ED 16:46 → SUATTDRO 19:48 → 2N 19:48